=== PATIENT | male | born 1955 | race Asian ===

== ENCOUNTER 2016-05-29 14:53 | Observation (INO) | payer OTHER ==
[2016-05-29 14:57] VITALS: BMI 33.6
--- NOTE | 2016-05-29 15:03 | PDOC ---
Rapid Medical Evaluation Chief Complaint: Chest Pain Time Seen by Provider: 05/29/16 15:02 Medical Evaluation: Allergies Allergy/AdvReac Type Severity Reaction Status Date / Time No Known Allergies Allergy Verified 05/29/16 14:57 Vital Signs Temp Pulse Resp BP Pulse Ox 98.2 F 98 H 18 153/94 97 05/29/16 14:54 05/29/16 14:54 05/29/16 14:54 05/29/16 14:54 05/29/16 14:54 05/29/16 15:02 60 yo M pmhx: hyperlipidemia, HTN, DM, copd c/o left sided Cp since 1100hr today. Increased pain exacerbated on inspiration without any alleviating factors. Pt was about to have lunch when pain started.
[2016-05-29 15:23] LABS: BASOPHIL 1.1 % (0-2.0); EOSINOPHIL 4.7 % (0-4.5); MCH 28.9 pg (25.7-33.7); MCHC 33.3 g/dl (32.0-35.9); MEAN CELL VOLUME 86.6 fl (80-96); MEAN PLT VOLUME 6.8 fl (7.5-11.1); NEUTROPHILS 64.2 % (42.8-82.8); PLATELET COUNT 235 K/MM3 (134-434); RDW 13.9 % (11.9-15.9); WHITE BLOOD COUNT 9.3 K/mm3 (4.0-10.0)
[2016-05-29 15:50] LABS: ALBUMIN 3.9 g/dl (3.4-5.0); ANION GAP 9 (8-16); BILIRUBIN,TOTAL 0.4 mg/dL (0.2-1.0); CALCIUM 9.3 mg/dL (8.5-10.1); CO2 30 mmol/L (21-32); CREATININE 0.9 mg/dL (0.7-1.3); GLUCOSE,RANDOM 175 mg/dL (74-106); SGOT/AST 22 U/L (15-37); SGPT/ALT 45 U/L (12-78); TOT PROT 7.2 g/dl (6.4-8.2)
[2016-05-29 15:51] LABS: ALK PHOS 68 U/L (45-117); TROPONIN I < 0.02 ng/ml (0.00-0.05)
--- NOTE | 2016-05-29 15:55 | PDOC ---
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 The patient states he was sitting down eating lunch when the pain started. The pain is localized to the left chest and does not radiate. The pain is sharp and is worse with deep inspiration. The patient states that he recently saw Dr. Márquez for increasing SOB and was started on albuterol. The patient has never had pain like this before. He denies any associated SOB or palpitations with his chest pain. The patient denies any cough or runny nose. He denies abdominal pain, nausea, vomiting, diarrhea. The patient denies recent illness, fevers, or chills. The patient denies sick contacts or recent travels. (Angeli Morel) Past History <Angeli Morel - Last Filed: 05/29/16 16:29> - Past Medical History Cancer: Yes (Prostate CA.) COPD: Yes (?) Diabetes: Yes (NIDDM) HTN: Yes Hypercholesterolemia: Yes - Surgical History Abdominal Surgery: No Appendectomy: No Cardiac Surgery: No - Immunization History Immunization Up to Date: Yes - Psycho/Social/Smoking Cessation Hx Anxiety: No Suicidal Ideation: No Smoking Status: No Smoking History: Former smoker Have you smoked in the past 12 months: No Number of Cigarettes Smoked Daily: 0 If you are a former smoker, when did you quit?: 40 Information on smoking cessation initiated: No Hx Alcohol Use: No Drug/Substance Use Hx: No Substance Use Type: None <Tara Weller - Last Filed: 05/29/16 17:49> - Past Medical History Allergies/Adverse Reactions: Allergies Allergy/AdvReac Type Severity Reaction Status Date / Time No Known Allergies Allergy Verified 05/29/16 16:07 Home Medications: Ambulatory Orders Albuterol Sulfate 0.5% [Ventolin 0.5% -] 1 neb IH PRN PRN 03/05/16 Albuterol Sulfate [Proair Respiclick] 90 mcg IH PRN PRN 03/05/16 Atorvastatin Ca [Lipitor] 20 mg PO HS 03/05/16 Beclomethasone Dipropionate [Qvar] 8.7 gm IH DAILY 03/05/16 Cholecalciferol (Vitamin D3) [Vitamin D3] 1,000 unit PO DAILY 03/05/16 Glipizide Xl [Glucotrol Xl -] 5 mg PO DAILY 03/05/16 Losartan/Hydrochlorothiazide [Losartan-Hctz 100-25 mg Tab] 1 each PO DAILY 03/05 Metformin HCl [Metformin HCl ER] 1,000 mg PO DAILY 03/05/16 Multivitamin [Poly-Vitamin] 1 each PO DAILY 03/05/16 [place]-3S/Dha/Epa/Fish Oil [Fish Oil [place]-3 Softgel] 1 each PO DAILY 03/05/16 Sildenafil Citrate [Sildenafil] 20 mg PO DAILY 03/05/16 Tamsulosin HCl [Flomax] 0.8 mg PO DAILY 03/05/16 Vitamin B Complex [B Complex] 1 each PO DAILY 03/05/16 Review of Systems - Review of Systems Able to Perform ROS?: Yes <Angeli Morel - Last Filed: 05/29/16 16:29> <Tara Weller - Last Filed: 05/29/16 17:49> - Review of Systems Comments:: 05/29/16 16:29 GENERAL/CONSTITUTIONAL: No: fever, chills, weakness, loss of appetite. HEAD, EYES, EARS, NOSE AND THROAT: No: change in vision, ear pain, discharge, sore throat, throat swelling. CARDIOVASCULAR: +Chest pain. No: lightheadedness, palpitations, syncope RESPIRATORY: No: cough, shortness of breath, wheezing, hemoptysis, stridor. GASTROINTESTINAL: No: nausea, vomiting, abdominal cramping, diarrhea, rectal bleeding, constipation. GENITOURINARY: No: dysuria, hematuria, frequency, urgency, flank pain. MUSCULOSKELETAL: No: back pain, neck pain, joint pain, muscle swelling or pain SKIN AND BREASTS: No: lesions, pallor, rash or easy bruising. NEUROLOGIC: No: headache, vertigo, paresthesias, weakness ENDOCRINE: No: unexplained weight gain or loss HEMATOLOGIC/LYMPHATIC: No: anemia, easy bleeding, swelling nodes (Angeli Morel) *Physical Exam <Angeli Morel - Last Filed: 05/29/16 16:29> <Tara Weller - Last Filed: 05/29/16 17:49> - Vital Signs Last Vital Signs Temp Pulse Resp BP Pulse Ox 98.2 F 98 H 18 153/94 97 05/29/16 14:54 05/29/16 14:54 05/29/16 14:54 05/29/16 14:54 05/29/16 14:54 - Physical Exam Comments: 05/29/16 16:30 GENERAL: The patient is in no acute distress. HEAD: Normal with no signs of trauma. EYES: PERRLA, EOMI, sclera anicteric, conjunctiva clear. ENT: Ears normal, nares patent, oropharynx clear without exudates. Moist mucous membranes. NECK: Normal range of motion, supple without lymphadenopathy, JVD, or masses. LUNGS: Breath sounds equal, clear to auscultation bilaterally. No wheezes, and no crackles. HEART: +Reproducible chest wall tenderness between the 5th and 6th left ribs. Regular rate and rhythm, normal S1 and S2 without murmur, rub or gallop. ABDOMEN: Soft, nontender, normoactive bowel sounds. No guarding, no rebound. EXTREMITIES: Normal range of motion, no edema. No clubbing or cyanosis. No erythema, or tenderness. NEUROLOGICAL: Cranial nerves II through XII grossly intact. Normal speech. No focal neurological deficits. MUSCULOSKELETAL: Back non-tender to palpation, no CVA tenderness SKIN: Warm, Dry, normal turgor, no rashes or lesions noted. (Angeli Morel) Heart Score/ECG Review - History History: Moderately suspicious - Electrocardiogram EKG: Normal - Age Age: >/= 65 - Risk Factors Risk Factors Heart Score: Yes Hx Hypercholesterolemia, Yes Hx Hypertension, Yes Hx Diabetes Based on the list above the patient has:: >/=3 risk factors or Hx atherosclerotic disease - Troponin Troponin: </= normal limit - Score Heart Score - Total: 5 #1 ECG reviewed & interpreted by me at: 17:48 <Tara Weller - Last Filed: 05/29/16 17:49> #1 05/29/16 17:48 Twelve-lead EKG was performed and reviewed by me. There is normal sinus rhythm with a normal rate of 87 bpm. The axis is normal. The intervals are normal - pr: 170ms, QRS:94ms, QTc:435ms. There are no ST elevations or depressions. T wave inversion III (Tara Weller) ED Treatment Course - LABORATORY CBC & Chemistry Diagram: 05/29/16 13:10 05/29/16 13:10 <Angeli Morel - Last Filed: 05/29/16 16:29> - LABORATORY CBC & Chemistry Diagram: 05/29/16 13:10 05/29/16 13:10 <Tara Weller - Last Filed: 05/29/16 17:49> - ADDITIONAL ORDERS Additional order review: Laboratory Results 05/29/16 05/29/16 05/29/16 16:37 13:10 13:10 D-Dimer < 200 Sodium Potassium Chloride Carbon Dioxide Anion Gap BUN Creatinine Creat Clearance w eGFR Random Glucose Calcium Total Bilirubin AST ALT Alkaline Phosphatase Creatine Kinase 266 Creatine Kinase Index 1.6 CK-MB (CK-2) 4.321 H CK-MB (CK-2) Rel Index Cancelled Troponin I < 0.02 Total Protein Albumin 05/29/16 13:10 D-Dimer Sodium 141 Potassium 3.8 Chloride 102 Carbon Dioxide 30 Anion Gap 9 BUN 19 H Creatinine 0.9 Creat Clearance w eGFR > 60 Random Glucose 175 H D Calcium 9.3 Total Bilirubin 0.4 AST 22 ALT 45 Alkaline Phosphatase 68 Creatine Kinase Creatine Kinase Index CK-MB (CK-2) CK-MB (CK-2) Rel Index Troponin I Total Protein 7.2 Albumin 3.9 05/29/16 13:10 RBC 5.18 MCV 86.6 MCHC 33.3 RDW 13.9 MPV 6.8 L Neutrophils % 64.2 Lymphocytes % 21.8 Monocytes % 8.2 Eosinophils % 4.7 H Basophils % 1.1 - Medications Given in the ED: ED Medications Discontinued Medications Generic Name Dose Route Start Last Admin Trade Name Freq PRN Reason Stop Dose Admin Morphine Sulfate 4 mg 05/29/16 16:53 05/29/16 17:14 Morphine Injection - IVPUSH 05/29/16 16:54 4 mg ONCE ONE Administration Medical Decision Making <Angeli Morel - Last Filed: 05/29/16 16:29> <Tara Weller - Last Filed: 05/29/16 17:49> - Medical Decision Making 05/29/16 15:54 A portion of this note was documented by scribe services under my direction. I have reviewed the details of the note, within reason, and agree with the documentation with the following case summary and management plan written by me. Nursing documentation reviewed and incorporated into medical decision making 05/29/16 17:33 This is a 60-year-old male with a history of diabetes, hypertension, hyperlipidemia who presents emergency department with a complaint of left-sided chest pain. Patient states his symptoms began today, described as sharp, no radiation to the arms or back. No associated diaphoresis. Patient states his pain worsens with any movement or deep breath. Patient denies trauma to the chest wall, denies heavy lifting. Denies recent cold, flu, cough. No recent travel, patient does have right lower extremity horses at night, but denies lower extremity edema. Differential includes cardiac ischemia, pe, asthma exacerbation, pneumonia, pneumothorax, pleural effusion, costochondritis, pericarditis, GERD. 05/29/16 17:42 Laboratory Tests 05/29/16 05/29/16 05/29/16 13:10 13:10 13:10 WBC 9.3 D Hgb 15.0 Hct 44.9 Plt Count 235 D Neutrophils % 64.2 Lymphocytes % 21.8 D-Dimer BUN 19 H Creatinine 0.9 CK-MB (CK-2) 4.321 H Troponin I < 0.02 05/29/16 16:37 WBC Hgb Hct Plt Count Neutrophils % Lymphocytes % D-Dimer < 200 BUN Creatinine CK-MB (CK-2) Troponin I Chest x-ray: Cardiomegaly, no acute infiltrate. Given patient's risk factors Will place on observation to the hospitalist service. Clinical impression: Chest pain (Tara Weller) *DC/Admit/Observation/Transfer <Angeli Morel - Last Filed: 05/29/16 16:29> - Discharge Dispostion Admit: Yes <Tara Weller - Last Filed: 05/29/16 17:49> Diagnosis at time of Disposition: Chest pain Qualifiers: Chest pain type: unspecified Qualified Code(s): R07.9 - Chest pain, unspecified - Discharge Dispostion Condition at time of disposition: Stable Decision to Admit order Date/Time: Decision to Admit Order Category Date Time Status Decision to Admit to Hospital Routine Admission 05/29/16 17:43 Active - Referrals Referrals: Sergio Gorman [Primary Care Provider] - - Attestations Scribe Attestion: 05/29/16 16:30 Documentation prepared by Angeli Morel, acting as medical cost consultant for Tara Weller MD. (Angeli Morel)
[2016-05-29] MEDS ORDERED: morphine CARPU-JECT 4 MG/1 ML DISP.SYRIN IVPUSH ONE (16:53)
[2016-05-29] MEDS ORDERED: morphine CARPU-JECT 4 MG/1 ML DISP.SYRIN ONE (17:13)
[2016-05-29] MEDS ORDERED: ALBUTEROL SO4 0.5 % INH SOLN 2.5 MG/0.5 ML VIAL.NEB. NEB PRN ×3 (18:08→18:43)
--- NOTE | 2016-05-29 18:11 | HP ---
CHIEF COMPLAINT: Chest pain PCP: Dr. Gorman [phone] HISTORY OF PRESENT ILLNESS: 60 yr old man with asthma, HTN, HLD, NIDDM, presents to ED with left lower chest pain, sharp in character, intermittent, positional, worse with inspiration breathing, nonradiating since 11am this morning. He came to work as usual, when he went to the [employer] he felt left sided chest discomfort that continued intermittently until it reached 8/10. Pain is improved when he leans forward. 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 Also has been using advil (2 tabs x4) over two days for headache. Denies heavy lifting,trauma, previous episodes of this type of chest pain. ER course was notable for: (1) trop I x1 negative (2) chest xray - no active pulmonary disease (3) EKG with NSR, no acute ischemic changes Recent Travel: [place] PAST MEDICAL HISTORY: HTN NIDDM HLD Asthma enlarged prostate, dx with Prostate Ca last year, Jesi score 2 PAST SURGICAL HISTORY: Social History: Smoking:former, quit 20-25 years ago, smoked approx 1pk for several months Alcohol: socially Drugs: denies Family History: father age 84 had prostate cancer, mother age 70, several DC' s prior to age 50 and had breast cancer ( secondary to MVA). Allergies No Known Allergies Allergy (Verified 05/29/16 16:07) HOME MEDICATIONS: Home Medications Medication Instructions Recorded Albuterol Sulfate 0.5% [Ventolin 1 neb IH PRN PRN 03/05/16 0.5% -] Albuterol Sulfate [Proair 90 mcg IH PRN PRN 03/05/16 Respiclick] Atorvastatin Ca [Lipitor] 20 mg PO HS 03/05/16 Beclomethasone Dipropionate [Qvar] 8.7 gm IH DAILY 03/05/16 Cholecalciferol (Vitamin D3) 1,000 unit PO DAILY 03/05/16 [Vitamin D3] Glipizide Xl [Glucotrol Xl -] 5 mg PO DAILY 03/05/16 Losartan/Hydrochlorothiazide 1 each PO DAILY 03/05/16 [Losartan-Hctz 100-25 mg Tab] Metformin HCl [Metformin HCl ER] 1,000 mg PO DAILY 03/05/16 Multivitamin [Poly-Vitamin] 1 each PO DAILY 03/05/16 [place]-3S/Dha/Epa/Fish Oil [Fish 1 each PO DAILY 03/05/16 Oil [place]-3 Softgel] Sildenafil Citrate [Sildenafil] 20 mg PO DAILY 03/05/16 Tamsulosin HCl [Flomax] 0.8 mg PO DAILY 03/05/16 Vitamin B Complex [B Complex] 1 each PO DAILY 03/05/16 REVIEW OF SYSTEMS CONSTITUTIONAL: Absent: fever, chills, diaphoresis, generalized weakness, malaise, loss of appetite, weight change HEENT: Absent: rhinorrhea, nasal congestion, throat pain, throat swelling, difficulty swallowing, mouth swelling, ear pain, eye pain, visual changes CARDIOVASCULAR: Present: chest pain Absent: syncope, palpitations, irregular heart rate, lightheadedness, peripheral edema RESPIRATORY: Absent: cough, shortness of breath, dyspnea with exertion, orthopnea, wheezing, stridor, hemoptysis GASTROINTESTINAL: Absent: abdominal pain, abdominal distension, nausea, vomiting, diarrhea, constipation, melena, hematochezia GENITOURINARY: Absent: dysuria, frequency, urgency, hesitancy, hematuria, flank pain, genital pain MUSCULOSKELETAL: Absent: myalgia, arthralgia, joint swelling, back pain, neck pain SKIN: Absent: rash, itching, pallor HEMATOLOGIC/IMMUNOLOGIC: Absent: easy bleeding, easy bruising, lymphadenopathy, frequent infections ENDOCRINE: Absent: unexplained weight gain, unexplained weight loss, heat intolerance, cold intolerance NEUROLOGIC: Absent: headache, focal weakness or paresthesias, dizziness, unsteady gait, seizure, mental status changes, bladder or bowel incontinence PSYCHIATRIC: Absent: anxiety, depression, suicidal or homicidal ideation, hallucinations. PHYSICAL EXAMINATION GENERAL: Awake, alert, and fully oriented, in no acute distress. HEAD: Normal with no signs of trauma. EYES: Pupils equal, round and reactive to light, extraocular movements intact, sclera anicteric, conjunctiva clear. No lid lag. EARS, NOSE, THROAT: Ears normal, nares patent, oropharynx clear without exudates. Moist mucous membranes. no pnd, no sinus tenderness. NECK: Normal range of motion, supple without lymphadenopathy, JVD, or masses. LUNGS: Breath sounds equal, clear to auscultation bilaterally. No wheezes, and no crackles. No accessory muscle use. HEART: Regular rate and rhythm, normal S1 and S2 without murmur, rub or gallop. CHEST: no erythema, no mass, skin intact, ttp chest wall tenderness between the 5th and 6th left ribs. ABDOMEN: Soft, nontender, not distended, normoactive bowel sounds, no guarding, no rebound, no masses. MUSCULOSKELETAL: freely moving all joints. UPPER EXTREMITIES: 2+ pulses, warm, well-perfused. No cyanosis. No clubbing. No peripheral edema. LOWER EXTREMITIES: warm, well-perfused. No calf tenderness. No peripheral edema. NEUROLOGICAL: Normal speech. PSYCHIATRIC: Cooperative. Good eye contact. Appropriate mood and affect. SKIN: Warm, dry, normal turgor, no rashes or lesions noted. ASSESSMENT/PLAN: 60 yr old man with asthma, HTN, NIDDM, HLD, hx of prostate cancer, presents with reproducible chest pain for one day. - heart score 5 - HA 1 #Reproducible chest pain - r/o DC due to risk factors: Trops x3 - given reproducibility, more suspicious for tietze syndrome - r/o pericardial effusion given relief when leaning forward; echo in the AM - pain control with naprosyn 350 bid #Asthma - duonebs prn - ventolin #NIDDM - anticipate short stay, continue oral hypoglycemics - metformin - glipizide #HTN - hyzaar #CAD - fish oil, lipitor #DVT- anticipate short stay, no oral AC, encourage ambulation #Diet- low fat low sodium Visit type - Emergency Visit Emergency Visit: Yes ED Registration Date: 05/29/16 Care time: The patient presented to the Emergency Department on the above date and was hospitalized for further evaluation of their emergent condition. - New Patient This patient is new to me today: Yes Date on this admission: 05/29/16 - Critical Care Critical Care patient: No
[2016-05-29] MEDS ORDERED: KETOROLAC TROMETHAMINE 30 MG/1 ML VIAL IVPUSH ONE (18:37)
[2016-05-29] MEDS ORDERED: ALBUTEROL SO4 2.5/IPRATROPIUM 0.5 INH SOL 3 ML VIAL.NEB. NEB ONE ×2 (18:37→20:08)
[2016-05-29] MEDS ORDERED: KETOROLAC TROMETHAMINE 30 MG/1 ML VIAL ONE (18:40)
--- NOTE | 2016-05-29 18:50 | PN ---
Teaching Attending Note Name of Resident: Sudhakar Jaramillo ATTENDING PHYSICIAN STATEMENT I saw and evaluated the patient. I reviewed the resident's note and discussed the case with the resident. I agree with the resident's findings and plan as documented. SUBJECTIVE: OBJECTIVE: Vital Signs Period Temp Pulse Resp BP Sys/Drake Pulse Ox Last 24 Hr 98.2 F 98 18 153/94 97 ASSESSMENT AND PLAN:
[2016-05-29] MEDS ORDERED: ALBUTEROL SO4 6.7 GM HFA INHALER IH PRN (19:51)
[2016-05-29] MEDS: NAPROXEN 375 MG TABLET (FP) PO SCH ×2 (20:04→23:03)
[2016-05-29] MEDS ORDERED: NAPROXEN 500 MG TABLET (FP) ONE (20:08)
[2016-05-29] MEDS: ATORVASTATIN CA 20 MG TABLET (FP) PO SCH ×2 (20:35→21:25)
[2016-05-29] MEDS ORDERED: NAPROXEN 375 MG TABLET (FP) PO SCH (22:00)
[2016-05-30] MEDS: glipiZIDE-XL 5 MG TAB.ER.24 PO SCH ×2 (06:33→08:25)
--- NOTE | 2016-05-30 08:34 | PN ---
Teaching Attending Note Name of Resident: Sudhakar Jaramillo ATTENDING PHYSICIAN STATEMENT I saw and evaluated the patient. I reviewed the resident's note and discussed the case with the resident. I agree with the resident's findings and plan as documented. Vital Signs Temperature 97.3 F L 05/30/16 06:00 Pulse Rate 63 05/30/16 06:00 Respiratory Rate 18 05/30/16 06:00 Blood Pressure 138/80 05/30/16 06:00 O2 Sat by Pulse Oximetry (%) 99 05/30/16 06:00 Medications Generic Name Dose Route Start Last Admin Trade Name Freq PRN Reason Stop Dose Admin Albuterol Sulfate 2 puff 05/29/16 19:51 Ventolin Hfa Inhaler - IH Q6H PRN ASTHMA Albuterol Sulfate 1 amp 05/29/16 18:43 Ventolin 0.5% - NEB Q4H PRN ASTHMA Atorvastatin Calcium 20 mg 05/29/16 22:00 05/29/16 21:25 Lipitor - PO Not Given HS [facility] Cholecalciferol 1,000 unit 05/30/16 10:00 Vitamin D3 - PO DAILY SHAE Glipizide 5 mg 05/30/16 07:00 05/30/16 08:25 Glucotrol Xl - PO 5 mg DAILY@0700 SHAE Administration HCTZ/Losartan Potassium 2 tab 05/30/16 10:00 Hyzaar - PO DAILY SHAE Metformin HCl 1,000 mg 05/30/16 07:00 05/30/16 08:25 Glucophage Xr - PO 1,000 mg DAILY@0700 SHAE Administration Multivitamins 1 each 05/30/16 10:00 Total B With C - PO DAILY [facility] Multivitamins/Minerals/Vitamin C 1 tab 05/30/16 10:00 Tab-A-Vit - PO DAILY SHAE Naproxen 375 mg 05/29/16 19:00 05/29/16 23:03 Naprosyn - PO 375 mg BID SHAE Administration Non-Formulary Medication 8.7 gm 05/30/16 10:00 Beclomethasone Dipropionate [Qvar] IH DAILY [facility] Non-Formulary Medication 1 each 05/30/16 10:00 [place]-3s/Dha/Epa/Fish Oil [Fish Oil [place]-3 Softgel] PO DAILY SHAE Non-Formulary Medication 20 mg 05/30/16 10:00 Sildenafil Citrate [Sildenafil] PO DAILY SHAE Discontinued Medications Generic Name Dose Route Start Last Admin Trade Name Freq PRN Reason Stop Dose Admin Albuterol Sulfate amp 05/29/16 18:08 Ventolin 0.5% - NEB PRN PRN ASTHMA Albuterol Sulfate 1 amp 05/29/16 18:42 Ventolin 0.5% - NEB PRN PRN ASTHMA Albuterol/Ipratropium 1 amp 05/29/16 18:37 05/29/16 20:04 Duoneb - NEB 05/29/16 18:38 1 amp NOW ONE Administration Albuterol/Ipratropium Confirm 05/29/16 20:08 Duoneb - Administered 05/29/16 20:09 Dose 1 amp NEB .STK-MED ONE Ketorolac Tromethamine 30 mg 05/29/16 18:37 05/29/16 18:41 Toradol Injection - IVPUSH 05/29/16 18:38 30 mg ONCE ONE Administration Ketorolac Tromethamine Confirm 05/29/16 18:40 Toradol Injection - Administered 05/29/16 18:41 Dose 30 mg .ROUTE .STK-MED ONE Morphine Sulfate 4 mg 05/29/16 16:53 05/29/16 17:14 Morphine Injection - IVPUSH 05/29/16 16:54 4 mg ONCE ONE Administration Morphine Sulfate Confirm 05/29/16 17:13 Morphine Injection - Administered 05/29/16 17:14 Dose 4 mg .ROUTE .STK-MED ONE Naproxen 375 mg 05/29/16 22:00 Naprosyn - PO BID [facility] Naproxen Confirm 05/29/16 20:08 Naprosyn - Administered 05/29/16 20:09 Dose 500 mg .ROUTE .STK-MED ONE Lab Results WBC 9.3 K/mm3 (4.0-10.0) D 05/29/16 13:10 RBC 5.18 M/mm3 (4.00-5.60) 05/29/16 13:10 Hgb 15.0 GM/dL (11.7-16.9) 05/29/16 13:10 Hct 44.9 % (35.4-49) 05/29/16 13:10 MCV 86.6 fl (80-96) 05/29/16 13:10 MCHC 33.3 g/dl (32.0-35.9) 05/29/16 13:10 RDW 13.9 % (11.9-15.9) 05/29/16 13:10 Plt Count 235 K/MM3 (134-434) D 05/29/16 13:10 MPV 6.8 fl (7.5-11.1) L 05/29/16 13:10 Neutrophils % 64.2 % (42.8-82.8) 05/29/16 13:10 Lymphocytes % 21.8 % (8-40) 05/29/16 13:10 Monocytes % 8.2 % (3.8-10.2) 05/29/16 13:10 Eosinophils % 4.7 % (0-4.5) H 05/29/16 13:10 Basophils % 1.1 % (0-2.0) 05/29/16 13:10 ESR 3 mm/hr (0-20) 05/29/16 21:10 D-Dimer < 200 ng/ml (<200-235) 05/29/16 16:37 Sodium 141 mmol/L (136-145) 05/29/16 13:10 Potassium 3.8 mmol/L (3.5-5.1) 05/29/16 13:10 Chloride 102 mmol/L (98-107) 05/29/16 13:10 Carbon Dioxide 30 mmol/L (21-32) 05/29/16 13:10 Anion Gap 9 (8-16) 05/29/16 13:10 BUN 19 mg/dL (7-18) H 05/29/16 13:10 Creatinine 0.9 mg/dL (0.7-1.3) 05/29/16 13:10 Creat Clearance w eGFR > 60 (>60) 05/29/16 13:10 POC Glucometer 81 UNITS (()) 05/30/16 06:20 Random Glucose 175 mg/dL (74-106) H D 05/29/16 13:10 Calcium 9.3 mg/dL (8.5-10.1) 05/29/16 13:10 Total Bilirubin 0.4 mg/dL (0.2-1.0) 05/29/16 13:10 AST 22 U/L (15-37) 05/29/16 13:10 ALT 45 U/L (12-78) 05/29/16 13:10 Alkaline Phosphatase 68 U/L (45-117) 05/29/16 13:10 Creatine Kinase 266 IU/L (39-308) 05/29/16 13:10 Creatine Kinase Index 1.6 % (0.0-5.0) 05/29/16 13:10 CK-MB (CK-2) 4.321 ng/ml (0.5-3.6) H 05/29/16 13:10 CK-MB (CK-2) Rel Index Cancelled 05/29/16 13:10 Troponin I < 0.02 ng/ml (0.00-0.05) 05/30/16 05:35 Total Protein 7.2 g/dl (6.4-8.2) 05/29/16 13:10 Albumin 3.9 g/dl (3.4-5.0) 05/29/16 13:10 Laboratory Tests 05/29/16 05/29/16 05/30/16 13:10 21:10 05:35 Troponin I < 0.02 < 0.02 < 0.02 Patient has no further chest pain, no palpitations, no nausea or vomiting. ASSESSMENT AND PLAN: 60 yr old man with asthma, HTN, NIDDM, HLD, hx of prostate cancer, presents with reproducible chest pain for one day. 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 Patient needs an stress test. #Asthma; duonebs prn, ventolin #NIDDM -on metformin and glipizide continue #HTN ;continue hyzaar #HLD on fish oil, lipitor continue #DVT- early ambulation on Observation #Diet- low fat low sodium
--- NOTE | 2016-05-30 09:32 | DS ---
Physical Exam: SUBJECTIVE: Patient seen and examined. Chest pain resolved, improved with naprosyn, no repeat episodes. slept well, ambulating and eating without difficulty. denies sob. OBJECTIVE: Vital Signs Period Temp Pulse Resp BP Sys/Drake Pulse Ox Last 24 Hr 97.3 F-98.1 F 63-98 18-23 138-155/78-96 96-99 PHYSICAL EXAM GENERAL: The patient is awake, alert, and fully oriented, in no acute distress. HEAD: Normal with no signs of trauma. EYES: PERRL, extraocular movements intact, sclera anicteric, conjunctiva clear. ENT: Ears normal, nares patent, oropharynx clear without exudates, moist mucous membranes. NECK: Trachea midline, full range of motion, supple. LUNGS: Breath sounds equal, clear to auscultation bilaterally, no wheezes, no crackles, no accessory muscle use. HEART: Regular rate and rhythm, S1, S2 without murmur, rub or gallop. no chest tenderness. ABDOMEN: Soft, nontender, nondistended, normoactive bowel sounds, no guarding, no rebound. EXTREMITIES: 2+ pulses, warm, well-perfused, no edema. NEUROLOGICAL: Cranial nerves II through XII grossly intact. Normal speech, gait not observed. PSYCH: Normal mood, normal affect. SKIN: Warm, dry, normal turgor, no rashes or lesions noted. LABS Laboratory Results - last 24 hr 05/29/16 05/29/16 05/30/16 21:10 21:10 05:35 ESR 3 POC Glucometer Troponin I < 0.02 < 0.02 05/30/16 06:20 ESR POC Glucometer 81 Troponin I Laboratory Tests 05/29/16 05/29/16 05/29/16 13:10 16:37 21:10 ESR D-Dimer < 200 Troponin I < 0.02 < 0.02 05/29/16 05/30/16 21:10 05:35 ESR 3 D-Dimer Troponin I < 0.02 HOSPITAL COURSE: Date of Admission:05/29/16 - Date of Discharge: 05/30/16 60 yr old man with asthma, HTN, NIDDM, HLD, hx of prostate cancer, presents with reproducible chest pain for one day. With heart score of 5 and HA score of 1 he was placed on telemetry for continuous cardiac monitoring. His echo showed normal left and right ventricular function with moederate mitral annlar calcifications with mild to moderate aortic valve thickening. EKG on admission showed NSR with possible left atrial enlargment without significant changes from a previous EKG from February 2106. Repeat EKG showed NSR with no significant change from previous. 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 Minutes to complete discharge: 40 <Sudhakar Jaramillo - Last Filed: 05/30/16 21:05> Physical Exam: SUBJECTIVE: Patient seen and examined OBJECTIVE: PHYSICAL EXAM GENERAL: The patient is awake, alert, and fully oriented, in no acute distress. HEAD: Normal with no signs of trauma. EYES: PERRL, extraocular movements intact, sclera anicteric, conjunctiva clear. ENT: Ears normal, nares patent, oropharynx clear without exudates, moist mucous membranes. NECK: Trachea midline, full range of motion, supple. LUNGS: Breath sounds equal, clear to auscultation bilaterally, no wheezes, no crackles, no accessory muscle use. HEART: Regular rate and rhythm, S1, S2 without murmur, rub or gallop. ABDOMEN: Soft, nontender, nondistended, normoactive bowel sounds, no guarding, no rebound, no hepatosplenomegaly, no masses. EXTREMITIES: 2+ pulses, warm, well-perfused, no edema. NEUROLOGICAL: Cranial nerves II through XII grossly intact. Normal speech, gait not observed. PSYCH: Normal mood, normal affect. SKIN: Warm, dry, normal turgor, no rashes or lesions noted. LABS HOSPITAL COURSE: Date of Admission:05/29/16 Date of Discharge: 06/03/16 Patient was called and left a message to follow up with for this Friday to schedule stress test as an outpatient. 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) Current Active Problems Chest pain (Acute) - Home Medications Comprehensive Discharge Medication List: Ambulatory Orders Albuterol Sulfate 0.5% [Ventolin 0.5% -] 1 neb IH PRN PRN 03/05/16 Albuterol Sulfate [Proair Respiclick] 90 mcg IH PRN PRN 03/05/16 Atorvastatin Ca [Lipitor] 20 mg PO DAILY 03/05/16 Beclomethasone Dipropionate [Qvar] 8.7 gm IH DAILY 03/05/16 Cholecalciferol (Vitamin D3) [Vitamin D3] 1,000 unit PO DAILY 03/05/16 Glipizide Xl [Glucotrol Xl -] 5 mg PO DAILY 03/05/16 Losartan/Hydrochlorothiazide [Losartan-Hctz 100-25 mg Tab] 1 each PO DAILY 03/05 Metformin HCl [Metformin HCl ER] 1,000 mg PO DAILY 03/05/16 Multivitamin [Poly-Vitamin] 1 each PO DAILY 03/05/16 [place]-3S/Dha/Epa/Fish Oil [Fish Oil [place]-3 Softgel] 1 each PO DAILY 03/05/16 Sildenafil Citrate [Sildenafil] 20 mg PO DAILY 03/05/16 Tamsulosin HCl [Flomax] 0.8 mg PO DAILY 03/05/16 Vitamin B Complex [B Complex] 1 each PO DAILY 03/05/16 Mirabegron [Myrbetriq] 50 mg PO HS 05/30/16 <Sudhakar Jaramillo - Last Filed: 05/30/16 21:05> - Home Medications Comprehensive Discharge Medication List: Ambulatory Orders Albuterol Sulfate 0.5% [Ventolin 0.5% Nebulizing Soln. -] 1 neb IH PRN PRN 03/05 Albuterol Sulfate [Proair Respiclick] 90 mcg IH PRN PRN 03/05/16 Atorvastatin Ca [Lipitor] 20 mg PO DAILY 03/05/16 Beclomethasone Dipropionate [Qvar] 8.7 gm IH DAILY 03/05/16 Cholecalciferol (Vitamin D3) [Vitamin D3] 1,000 unit PO DAILY 03/05/16 Glipizide Xl [Glucotrol Xl -] 5 mg PO DAILY 03/05/16 Losartan/Hydrochlorothiazide [Losartan-Hctz 100-25 mg Tab] 1 each PO DAILY 03/05 Metformin HCl [Metformin HCl ER] 1,000 mg PO DAILY 03/05/16 Multivitamin [Poly-Vitamin] 1 each PO DAILY 03/05/16 [place]-3S/Dha/Epa/Fish Oil [Fish Oil [place]-3 Softgel] 1 each PO DAILY 03/05/16 Sildenafil Citrate [Sildenafil] 20 mg PO DAILY 03/05/16 Tamsulosin HCl [Flomax] 0.8 mg PO DAILY 03/05/16 Vitamin B Complex [B Complex] 1 each PO DAILY 03/05/16 Mirabegron [Myrbetriq] 50 mg PO HS 05/30/16 Naproxen [Naprosyn -] 375 mg PO BID #6 tablet 05/30/16 <Genevieve Das - Last Filed: 06/03/16 07:27> Condition: Stable - Instructions Diet, Activity, Other Instructions: Resume your home medications and return to your usual activities as tolerated. Take Naprosyn 1 tablet twice daily with plenty of water if you need it for pain. Follow-up with Dr. Polk and your primary care physician in one week for further cardiac evaluation and review of your hospitalization. If your chest pain worsens, your develop difficulty breathing or any new symptoms return to the hospital. Referrals: Sergio Gorman [Primary Care Provider] - Yovany Green MD [Staff Physician] - Disposition: HOME This patient is new to me today: No Emergency Visit: No Critical Care patient: No - Discharge Referral Referred to [facility] No <Sudhakar Jaramillo - Last Filed: 05/30/16 21:05>
[2016-05-30] MEDS: NAPROXEN 375 MG TABLET (FP) PO SCH (09:56)
[2016-05-30] MEDS ORDERED: MULTIVITAMINS (DAILY MVI) TABLET (FP) PO SCH (10:00)
[2016-05-30] MEDS ORDERED: CHOLECALCIFEROL (VITAMIN D3) 1,000 UNIT TABLET (FP) PO SCH (10:00)
[2016-05-30] MEDS ORDERED: SILDENAFIL CITRATE 20 MG TAB PO SCH (10:00)
[2016-05-30] MEDS ORDERED: PATIENT'S OWN MEDICATION (NON-FORMULARY) (Omega-3s/Dha/Epa/Fish Oil [Fish Oil Omega-3 Soft PO SCH (10:00)
[2016-05-30] MEDS ORDERED: VITAMIN B COMPLEX W/C COMBO TABLET (FP) PO SCH (10:00)
[2016-05-30] MEDS ORDERED: LOSARTAN 50MG/HCTZ 12.5MG 1 TAB (FP) PO SCH (10:00)
[2016-05-30] MEDS ORDERED: PATIENT'S OWN MEDICATION (NON-FORMULARY) (Beclomethasone Dipropionate [Qvar] 8.7 GM) IH SCH (10:00)
--- NOTE | 2016-05-30 10:58 | CON.CARD ---
Consult Consult Specialty:: cardiology Reason for Consultation:: cp - History of Present Illness History of Present Illness: 60 yo M pmhx: hyperlipidemia, HTN, DM, copd c/o left sided Cp since 1100hr today. Increased pain exacerbated on inspiration without any alleviating factors. Pt was about to have lunch when pain started. - Alcohol/Substance Use Hx Alcohol Use: No - Smoking History Smoking history: Former smoker Have you smoked in the past 12 months: No Aproximately how many cigarettes per day: 0 If you are a former smoker, when did you quit?: 40 Home Medications - Allergies Allergies/Adverse Reactions: Allergies Allergy/AdvReac Type Severity Reaction Status Date / Time No Known Allergies Allergy Verified 05/29/16 16:07 - Home Medications Home Medications: Ambulatory Orders Albuterol Sulfate 0.5% [Ventolin 0.5% Nebulizing Soln. -] 1 neb IH PRN PRN 03/05 Albuterol Sulfate [Proair Respiclick] 90 mcg IH PRN PRN 03/05/16 Atorvastatin Ca [Lipitor] 20 mg PO DAILY 03/05/16 Beclomethasone Dipropionate [Qvar] 8.7 gm IH DAILY 03/05/16 Cholecalciferol (Vitamin D3) [Vitamin D3] 1,000 unit PO DAILY 03/05/16 Glipizide Xl [Glucotrol Xl -] 5 mg PO DAILY 03/05/16 Losartan/Hydrochlorothiazide [Losartan-Hctz 100-25 mg Tab] 1 each PO DAILY 03/05 Metformin HCl [Metformin HCl ER] 1,000 mg PO DAILY 03/05/16 Multivitamin [Poly-Vitamin] 1 each PO DAILY 03/05/16 [place]-3S/Dha/Epa/Fish Oil [Fish Oil [place]-3 Softgel] 1 each PO DAILY 03/05/16 Sildenafil Citrate [Sildenafil] 20 mg PO DAILY 03/05/16 Tamsulosin HCl [Flomax] 0.8 mg PO DAILY 03/05/16 Vitamin B Complex [B Complex] 1 each PO DAILY 03/05/16 Mirabegron [Myrbetriq] 50 mg PO HS 05/30/16 Naproxen [Naprosyn -] 375 mg PO BID #6 tablet 05/30/16 Vital Signs: Vital Signs Temperature 97.7 F 05/30/16 09:02 Pulse Rate 82 05/30/16 09:02 Respiratory Rate 18 03/02/17 09:02 Blood Pressure 138/85 05/30/16 09:02 O2 Sat by Pulse Oximetry (%) 99 05/30/16 06:00 - Other Data Labs, Other Data: Troponin, BNP 05/29/16 05/30/16 21:10 05:35 Troponin I < 0.02 < 0.02 Troponin, BNP 05/29/16 05/30/16 21:10 05:35 Troponin I < 0.02 < 0.02 Assessment/Plan came to examine patient at 5 45 PM. Patient was already discharged. Patient should have MIBI stress test as the inpatient prior to the discharge. PMD contacted patient via cell phone in this regard.
--- NOTE | 2016-05-30 14:12 | EKG ---
Test Reason : Blood Pressure : / mmHG Vent. Rate : 087 BPM Atrial Rate : 087 BPM P-R Int : 170 ms QRS Dur : 094 ms QT Int : 362 ms P-R-T Axes : 060 022 022 degrees QTc Int : 435 ms NORMAL SINUS RHYTHM POSSIBLE LEFT ATRIAL ENLARGEMENT BORDERLINE ECG WHEN COMPARED WITH ECG OF 05-MAR-2016 21:28, NO SIGNIFICANT CHANGE WAS FOUND Confirmed by IVANIA RANDOLPH MD ([id number]) on 05/30/2016 2:11:32 PM Referred By: Confirmed By:IVANIA RANDOLPH MD
--- NOTE | 2016-05-30 14:14 | EKG ---
Test Reason : Blood Pressure : / mmHG Vent. Rate : 071 BPM Atrial Rate : 071 BPM P-R Int : 176 ms QRS Dur : 098 ms QT Int : 390 ms P-R-T Axes : 067 063 028 degrees QTc Int : 423 ms NORMAL SINUS RHYTHM NORMAL ECG WHEN COMPARED WITH ECG OF 29-MAY-2016 15:04, NO SIGNIFICANT CHANGE WAS FOUND Confirmed by IVANIA RANDOLPH MD ([id number]) on 05/30/2016 2:13:50 PM Referred By: MARGARITO ESCUDERO Confirmed By:IVANIA RANDOLPH MD
[2016-05-30 14:30] VITALS: BP 133/78; PULSE 77; TEMP 98.1
== END 2016-05-30 17:40 | disposition home or self-care (01) ==
LOC: JER 14:53 → JERBED 17:43 → J4S 20:26
PROVIDERS: ADMIT Internal Medicine; ATTEND Internal Medicine
DX: R07.9 Chest pain, unspecified (principal); I10 Essential (primary) hypertension; E78.5 Hyperlipidemia, unspecified; E11.9 Type 2 diabetes mellitus without complications; J45.909 Unspecified asthma, uncomplicated; N40.0 Benign prostatic hyperplasia without lower urinary tract symptoms; Z85.46 Personal history of malignant neoplasm of prostate; Z87.891 Personal history of nicotine dependence; Z79.84 Long term (current) use of oral hypoglycemic drugs
CPT/HCPCS: 36415; 71020-TC; 80053; 82550; 82553; 84484; 85025; 85379; 85651; 93005; 93010; 93306-TC; 99285-25; G0378

== ENCOUNTER 2016-06-19 20:21 | Emergency (ER) | payer OTHER ==
[2016-06-19 20:39] VITALS: BP 147/89; PULSE 89; TEMP 97.6; BMI 29.2
[2016-06-19] MEDS ORDERED: KETOROLAC TROMETHAMINE 30 MG/1 ML VIAL IM ONE (21:08)
[2016-06-19] MEDS ORDERED: KETOROLAC TROMETHAMINE 30 MG/1 ML VIAL ONE (21:49)
--- NOTE | 2016-06-19 22:16 | PDOC ---
History of Present Illness - General Chief Complaint: Injury Stated Complaint: FALL/INJURY/EMPLOYEE Time Seen by Provider: 06/19/16 20:39 History Source: Patient Exam Limitations: No Limitations - History of Present Illness Initial Comments: 06/19/16 22:11 CHIEF COMPLAINT: Fall HISTORY OF PRESENT ILLNESS: This is a 61 year old male with a history of NIDDM, HTN, and prostate ca (not yet treated) who presents after slipping and falling on ice outside of work. He fell onto his left knee and outstretched left hand. He is ambulatory in the ED. REVIEW OF SYSTEMS: GENERAL/CONSTITUTIONAL: No fever or chills. No weakness. No weight change. HEAD, EYES, EARS, NOSE AND THROAT: No change in vision. No ear pain or discharge. No sore throat. CARDIOVASCULAR: No chest pain or palpitations. RESPIRATORY: No cough, wheezing, or shortness of breath. GASTROINTESTINAL: No nausea, vomiting, diarrhea or constipation. GENITOURINARY: No dysuria, frequency, or change in urination. MUSCULOSKELETAL: Left knee and left wrist pain. SKIN: No rash or easy bruising. NEUROLOGIC: No headache, vertigo, loss of consciousness, or loss of sensation. PSYCHIATRIC: No depression or anxiety. ENDOCRINE: No increased thirst. No abnormal weight change. HEMATOLOGIC/LYMPHATIC: No anemia, easy bleeding, or history of blood clots. ALLERGIC/IMMUNOLOGIC: No hives or skin allergy. No latex allergy. PHYSICAL EXAM: GENERAL: The patient is awake, alert, and fully oriented, in no acute distress. HEAD: Normal with no signs of trauma. ENT: Pupils equal, round and reactive to light, extraocular movements intact, sclera anicteric, conjunctiva clear. Neck supple. LUNGS: Clear to auscultation bilaterally. Normal excursion. No respiratory distress or use of accessory muscles. CV: RRR, S1/S2, no MRG. Cap refill < 2 sec. ABDOMEN: Soft, non-distended, non-tender. EXTREMITIES: Abrasion and tenderness at tibial plateau. Able to extend fully and flex to 90 degrees. No ligament laxity. Mild tenderness at distal radius, worse with extension of thumb. Movement and sensation of fingers intact. Radial and ulnar pulses 2+. NEUROLOGICAL: Normal speech, normal gait. CN II-XII grossly intact. PSYCH: Normal mood, normal affect. SKIN: Warm, dry, normal turgor, no rashes or lesions noted. Past History - Past Medical History Allergies/Adverse Reactions: Allergies Allergy/AdvReac Type Severity Reaction Status Date / Time No Known Allergies Allergy Verified 06/19/16 20:37 Home Medications: Ambulatory Orders Albuterol Sulfate 0.5% [Ventolin 0.5% Nebulizing Soln. -] 1 neb IH PRN PRN 03/05 Albuterol Sulfate [Proair Respiclick] 90 mcg IH PRN PRN 03/05/16 Atorvastatin Ca [Lipitor] 20 mg PO DAILY 03/05/16 Beclomethasone Dipropionate [Qvar] 8.7 gm IH DAILY 03/05/16 Cholecalciferol (Vitamin D3) [Vitamin D3] 1,000 unit PO DAILY 03/05/16 Glipizide Xl [Glucotrol Xl -] 5 mg PO DAILY 03/05/16 Losartan/Hydrochlorothiazide [Losartan-Hctz 100-25 mg Tab] 1 each PO DAILY 03/05 Metformin HCl [Metformin HCl ER] 1,000 mg PO DAILY 03/05/16 Multivitamin [Poly-Vitamin] 1 each PO DAILY 03/05/16 [place]-3S/Dha/Epa/Fish Oil [Fish Oil [place]-3 Softgel] 1 each PO DAILY 03/05/16 Sildenafil Citrate [Sildenafil] 20 mg PO DAILY 03/05/16 Tamsulosin HCl [Flomax] 0.8 mg PO DAILY 03/05/16 Vitamin B Complex [B Complex] 1 each PO DAILY 03/05/16 Mirabegron [Myrbetriq] 50 mg PO HS 05/30/16 Naproxen [Naprosyn -] 375 mg PO BID #6 tablet 05/30/16 Naproxen [Naprosyn -] 500 mg PO BID #14 tablet 06/19/16 Cancer: Yes (Prostate CA.) COPD: Yes (?) Diabetes: Yes HTN: Yes Hypercholesterolemia: Yes - Surgical History Abdominal Surgery: No Appendectomy: No Cardiac Surgery: No - Immunization History Immunization Up to Date: Yes - Psycho/Social/Smoking Cessation Hx Anxiety: No Suicidal Ideation: No Smoking Status: No Smoking History: Never smoked Have you smoked in the past 12 months: No Number of Cigarettes Smoked Daily: 0 If you are a former smoker, when did you quit?: 40 Information on smoking cessation initiated: No Hx Alcohol Use: No Drug/Substance Use Hx: No Substance Use Type: None *Physical Exam - Vital Signs Last Vital Signs Temp Pulse Resp BP Pulse Ox 97.6 F 89 20 147/89 98 06/19/16 20:37 06/19/16 20:37 06/19/16 20:37 06/19/16 20:37 06/19/16 20:37 ED Treatment Course - RADIOLOGY Radiology Studies Ordered: Category Date Time Status KNEE 3 POS-LEFT [RAD] Stat Radiology 06/19/16 21:11 Taken WRIST W/HAND-LEFT* [RAD] Stat Radiology 06/19/16 21:11 Taken - Medications Given in the ED: ED Medications Discontinued Medications Generic Name Dose Route Start Last Admin Trade Name Freq PRN Reason Stop Dose Admin Ketorolac Tromethamine 30 mg 06/19/16 21:08 06/19/16 21:51 Toradol Injection - IM 06/19/16 21:09 30 mg ONCE ONE Administration Medical Decision Making - Medical Decision Making 06/19/16 22:26 A/P: 61 year old male with knee pain and wrist pain s/p fall. 1. Toradol 30mg IM for pain 2. Knee and wrist xrays Xray wet reads: no fractures. Patient prefers to be discharged prior to official radiology read. *DC/Admit/Observation/Transfer Diagnosis at time of Disposition: Fall Qualifiers: Encounter type: initial encounter Qualified Code(s): W19.XXXA - Unspecified fall, initial encounter Left wrist sprain Qualifiers: Encounter type: initial encounter Qualified Code(s): S63.502A - Unspecified sprain of left wrist, initial encounter Knee sprain Qualifiers: Encounter type: initial encounter Involved ligament of knee: other ligament Laterality: left Qualified Code(s): S83.8X2A - Sprain of other specified parts of left knee, initial encounter - Discharge Dispostion Disposition: HOME Condition at time of disposition: Stable Admit: No - Prescriptions Prescriptions: Naproxen [Naprosyn -] 500 mg PO BID #14 tablet - Referrals Referrals: Johnny Pate MD [Staff Physician] - - Patient Instructions Printed Discharge Instructions: DI for Wrist Sprain, DI for Knee Sprain Additional Instructions: -Take Naproxen as prescribed for kim -Use the wrist splint and JUAN F wrap as needed for comfort -Apply ice for 15 minutes a time 5 times daily -Follow up with orthopedics if symptoms persist (referral enclosed) -Return here for any concerning symptoms
== END 2016-06-19 22:28 | disposition home or self-care (01) ==
LOC: JERFT 20:21
PROC: 3E0233Z Introduction of Anti-inflammatory into Muscle, Percutaneous Approach (ICD-10-PCS; principal; 2016-06-19)
DX: S63.502A Unspecified sprain of left wrist, initial encounter (principal); S83.8X2A Sprain of other specified parts of left knee, initial encounter; W00.9XXA Unspecified fall due to ice and snow, initial encounter; Y93.9 Activity, unspecified; Y92.239 Unspecified place in hospital as the place of occurrence of the external cause; Y99.0 Civilian activity done for income or pay; E11.9 Type 2 diabetes mellitus without complications; I10 Essential (primary) hypertension; Z85.46 Personal history of malignant neoplasm of prostate; E78.00 Pure hypercholesterolemia, unspecified
CPT/HCPCS: 73110-TC-LT; 73130-TC-LT; 73562-TC-LT; 99281-25

== ENCOUNTER 2016-06-28 13:48 | Observation (INO) | payer OTHER ==
[2016-06-28 13:58] VITALS: BMI 32.4
--- NOTE | 2016-06-28 14:21 | PDOC ---
[id number]: No Limitations - History of Present Illness Initial Comments: 06/28/16 14:42 The patient is a 61 year old male, [employer] employee, with pmh of NIDDM, HTN, migraines, and prostate ca (not yet treated) who presents to the ED with right face droop and elevated blood pressure for 30 minutes. The patient states that he was at employee the [employer] [facility] when the nurse noticed a right sided facial droop but denies feeling any drooping sensation. The patient notes that last night he experienced 10 minutes of spotty and blurred vision. The patient reports mild left sided chest pain described as irritating in sensation. He notes that he has a stress test scheduled for friday. Patient notes that 3 weeks ago his started him on Myrbetriq. <Adonay Rasheed - Last Filed: 06/28/16 15:56> <Kaelyn Aguiar - Last Filed: 07/02/16 22:24> - General Chief Complaint: Blood Pressure Problem Stated Complaint: EMPLOYEE, SENT BY PCP Time Seen by Provider: 06/28/16 14:06 NIH Stroke Scale - Last Known Well Date/Time & Onset Date Last Known Well: 06/28/16 Time Last Known Well: 13:00 - Initial Evaluation Level of consciousness: Alert Ask patient the month and their age: Answers both correctly Ask patient to open & close eyes; make fist and let go: Obeys both correctly Best gaze (horizontal eye movement): Normal Visual field testing: No visual field loss Facial paresis (Show teeth/raise eyebrows/close eyes tight): Normal symmetrical movement Motor Function: Left Arm: Normal Motor Function: Right Arm: Normal (extends arm 90 (or 45) degrees for 10 seconds without drift Motor Function: Left Leg: Normal (extends leg 30 degrees for 5 seconds without drift) Motor Function: Right Leg: Normal (extends leg 30 degrees for 5 seconds without drift) Limb Ataxia: No ataxia Sensory(Use pinprick test arms,legs,trunk,face/side to side): Normal Best language (Describe picture, name items, read sentences): No Aphasia Dysarthria (read several words): Normal articulation Extinction and Inattention: No abnormality - Total Score NIH Stroke Scale Score: 0 <Kaelyn Aguiar - Last Filed: 07/02/16 22:24> Past History <Adonay Rasheed - Last Filed: 06/28/16 15:56> - Past Medical History Cancer: Yes (Prostate CA.) COPD: Yes (?) Diabetes: Yes HTN: Yes Hypercholesterolemia: Yes - Surgical History Abdominal Surgery: No Appendectomy: No Cardiac Surgery: No - Immunization History Immunization Up to Date: Yes - Psycho/Social/Smoking Cessation Hx Anxiety: No Suicidal Ideation: No Smoking Status: No Smoking History: Never smoked Have you smoked in the past 12 months: No Number of Cigarettes Smoked Daily: 0 If you are a former smoker, when did you quit?: 40 Information on smoking cessation initiated: No Hx Alcohol Use: No Drug/Substance Use Hx: No Substance Use Type: None <Kaelyn Aguiar - Last Filed: 07/02/16 22:24> - Past Medical History Allergies/Adverse Reactions: Allergies Allergy/AdvReac Type Severity Reaction Status Date / Time No Known Allergies Allergy Verified 06/28/16 13:55 Home Medications: Ambulatory Orders Albuterol Sulfate 0.5% [Ventolin 0.5% Nebulizing Soln. -] 1 neb IH PRN PRN 03/05 Albuterol Sulfate [Proair Respiclick] 90 mcg IH PRN PRN 03/05/16 Atorvastatin Ca [Lipitor] 20 mg PO DAILY 03/05/16 Beclomethasone Dipropionate [Qvar] 80 mcg IH DAILY 03/05/16 Cholecalciferol (Vitamin D3) [Vitamin D3] 1,000 unit PO DAILY 03/05/16 Glipizide Xl [Glucotrol Xl -] 5 mg PO DAILY 03/05/16 Losartan/Hydrochlorothiazide [Losartan-Hctz 100-25 mg Tab] 1 each PO DAILY 03/05 Metformin HCl [Metformin HCl ER] 500 mg PO BID 03/05/16 Multivitamin [Poly-Vitamin] 1 each PO DAILY 03/05/16 [place]-3S/Dha/Epa/Fish Oil [Fish Oil [place]-3 Softgel] 1 each PO DAILY 03/05/16 Sildenafil Citrate [Sildenafil] 20 mg PO DAILY 03/05/16 Tamsulosin HCl [Flomax] 0.8 mg PO DAILY 03/05/16 Vitamin B Complex [B Complex] 1 each PO DAILY 03/05/16 Mirabegron [Myrbetriq] 50 mg PO HS 05/30/16 Breo Ellipta 100-25 Mcg INH 06/28/16 Aspirin [ASA -] 81 mg PO DAILY #100 tab MDD 1 06/29/16 Review of Systems - Review of Systems Able to Perform ROS?: Yes Comments:: 06/28/16 14:42 GENERAL/CONSTITUTIONAL: No fever or chills. No weakness. HEAD, EYES, EARS, NOSE AND THROAT: Yes right sided facial droop, blurred vision , spotted vision. No ear pain or discharge. No sore throat. CARDIOVASCULAR: Yes chest pain, elevated blood pressure. No shortness of breath. RESPIRATORY: No cough, wheezing, or hemoptysis. GASTROINTESTINAL: No nausea, vomiting, diarrhea or constipation. GENITOURINARY: No dysuria, frequency, or change in urination. MUSCULOSKELETAL: No joint or muscle swelling or pain. No neck or back pain. SKIN: No rash NEUROLOGIC: No headache, vertigo, loss of consciousness, or change in strength/ sensation. ENDOCRINE: No increased thirst. No abnormal weight change. HEMATOLOGIC/LYMPHATIC: No anemia, easy bleeding, or history of blood clots. ALLERGIC/IMMUNOLOGIC: No hives or skin allergy. <Adonay Rasheed - Last Filed: 06/28/16 15:56> *Physical Exam - Vital Signs Last Vital Signs Temp Pulse Resp BP Pulse Ox 97.9 F 100 H 20 132/79 100 06/28/16 13:55 06/28/16 13:55 06/28/16 13:55 06/28/16 13:55 06/28/16 14:10 - Physical Exam Comments: 06/28/16 14:43 GENERAL: Awake, alert, and fully oriented, in no acute distress HEAD: No signs of trauma EYES: PERRLA, EOMI, sclera anicteric, conjunctiva clear ENT: Auricles normal inspection, hearing grossly normal, nares patent, oropharynx clear without exudates. Moist mucosa NECK: Normal ROM, supple, no lymphadenopathy, JVD, or masses LUNGS: Breath sounds equal, clear to auscultation bilaterally. No wheezes, and no crackles HEART: Regular rate and rhythm, normal S1 and S2, no murmurs, rubs or gallops ABDOMEN: Soft, nontender, normoactive bowel sounds. No guarding, no rebound. No masses EXTREMITIES: Normal range of motion, no edema. No clubbing or cyanosis. No cords, erythema, or tenderness NEUROLOGICAL: Cranial nerves II through XII grossly intact. Normal speech, normal gait SKIN: Warm, Dry, normal turgor, no rashes or lesions noted. <Adonay Rasheed - Last Filed: 06/28/16 15:56> - Vital Signs Last Vital Signs Temp Pulse Resp BP Pulse Ox 97.9 F 100 H 20 132/79 97 06/28/16 13:55 06/28/16 13:55 06/28/16 13:55 06/28/16 13:55 06/28/16 13:55 <Kaelyn Aguiar - Last Filed: 07/02/16 22:24> Heart Score/ECG Review - ECG Impressions Comment:: EKG read 14:47- NSR 90 bpm, no acute ST/T changes <Kaelyn Aguiar - Last Filed: 07/02/16 22:24> ED Treatment Course - LABORATORY CBC & Chemistry Diagram: 06/28/16 14:30 06/28/16 14:30 - RADIOLOGY Radiograph Interpretation: 06/28/16 15:56 EXAM#: TYPE/EXAM: RESULT: [id number] CT/HEAD CT WITHOUT CONTRAST CT SCAN OF THE BRAIN C-. Right facial droop resolved. Findings. Serial axial images of the brain were obtained from foramen magnum to the cranial vertex without intravenous contrast. The study was supplemented with computer-generated coronal and sagittal reconstruction images. Podiatry Assistant image was reviewed. There is no evidence of acute subarachnoid hemorrhage, acute intra-axial or extra-axial fluid collection consistent with subdural or epidural hematoma. No mass effect, midline shift, acute territorial ischemic changes, herniation or edema is present. Normal chaudhary matter white matter differentiation. The cortical sulci, sylvian fissures, perimesencephalic cisterns are not effaced. TSH spaces are age -appropriate with age-related involutional changes. Examination of the bone windows show no fracture. The visualized paranasal sinuses and mastoid air cells are clear. Symmetrical ocular globes. Unremarkable retro-orbital soft tissues. Impression. No evidence of acute intracranial hemorrhage, edema, midline shift, mass effect, or skull fracture. No CT evidence of acute territorial infarction Reported By: Jhon Healy MD 06/28/16 1541 <Adonay Rasheed - Last Filed: 06/28/16 15:56> - LABORATORY CBC & Chemistry Diagram: 06/29/16 06:20 06/29/16 06:20 <Kaelyn Aguiar - Last Filed: 07/02/16 22:24> Medical Decision Making - Medical Decision Making 16:23 Case d/w Dr. 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 Recommended admission for workup for TIA. NIHSS currently 0. I have discussed with patient, who agrees to admission. <Kaelyn Aguiar - Last Filed: 07/02/16 22:24> *DC/Admit/Observation/Transfer - Attestations Scribe Attestion: 06/28/16 14:44 Documentation prepared by Adonay Rasheed, acting as medical director of hospice for Kaelyn Aguiar MD. <Adonay Rasheed - Last Filed: 06/28/16 15:56> - Discharge Dispostion Admit: Yes <Kaelyn Aguiar - Last Filed: 07/02/16 22:24> Diagnosis at time of Disposition: TIA (transient ischemic attack) Qualifiers: Transient cerebral ischemia type: unspecified Qualified Code(s): G45.9 - Transient cerebral ischemic attack, unspecified - Discharge Dispostion Disposition: HOME Condition at time of disposition: Stable - Prescriptions - Referrals
[2016-06-28 14:58] LABS: BASOPHIL 1.3 % (0-2.0); EOSINOPHIL 11.9 % (0-4.5); MCH 28.7 pg (25.7-33.7); MCHC 32.5 g/dl (32.0-35.9); MEAN CELL VOLUME 88.5 fl (80-96); MEAN PLT VOLUME 6.4 fl (7.5-11.1); NEUTROPHILS 52.7 % (42.8-82.8); PLATELET COUNT 245 K/MM3 (134-434); RDW 13.8 % (11.9-15.9); WHITE BLOOD COUNT 6.6 K/mm3 (4.0-10.0)
[2016-06-28 15:30] LABS: ALBUMIN 4.1 g/dl (3.4-5.0); ANION GAP 8 (8-16); BILIRUBIN,TOTAL 0.4 mg/dL (0.2-1.0); CO2 30 mmol/L (21-32); CREATININE 0.8 mg/dL (0.7-1.3); GLUCOSE,RANDOM 131 mg/dL (74-106); SGOT/AST 23 U/L (15-37); SGPT/ALT 51 U/L (12-78); TOT PROT 7.7 g/dl (6.4-8.2)
[2016-06-28 15:32] LABS: ALK PHOS 82 U/L (45-117); TROPONIN I < 0.02 ng/ml (0.00-0.05)
--- NOTE | 2016-06-28 17:29 | HP ---
CHIEF COMPLAINT: PCP: HISTORY OF PRESENT ILLNESS: ER course was notable for: (1) (2) (3) Recent Travel: PAST MEDICAL HISTORY: PAST SURGICAL HISTORY: Social History: Smoking: Alcohol: Drugs: Family History: Allergies No Known Allergies Allergy (Verified 06/28/16 13:55) HOME MEDICATIONS: Home Medications Medication Instructions Recorded Albuterol Sulfate 0.5% [Ventolin 1 neb IH PRN PRN 03/05/16 0.5% Nebulizing Soln. -] Albuterol Sulfate [Proair 90 mcg IH PRN PRN 03/05/16 Respiclick] Atorvastatin Ca [Lipitor] 20 mg PO DAILY 03/05/16 Beclomethasone Dipropionate [Qvar] 8.7 gm IH DAILY 03/05/16 Cholecalciferol (Vitamin D3) 1,000 unit PO DAILY 03/05/16 [Vitamin D3] Glipizide Xl [Glucotrol Xl -] 5 mg PO DAILY 03/05/16 Losartan/Hydrochlorothiazide 1 each PO DAILY 03/05/16 [Losartan-Hctz 100-25 mg Tab] Metformin HCl [Metformin HCl ER] 1,000 mg PO DAILY 03/05/16 Multivitamin [Poly-Vitamin] 1 each PO DAILY 03/05/16 [place]-3S/Dha/Epa/Fish Oil [Fish 1 each PO DAILY 03/05/16 Oil [place]-3 Softgel] Sildenafil Citrate [Sildenafil] 20 mg PO DAILY 03/05/16 Tamsulosin HCl [Flomax] 0.8 mg PO DAILY 03/05/16 Vitamin B Complex [B Complex] 1 each PO DAILY 03/05/16 Mirabegron [Myrbetriq] 50 mg PO HS 05/30/16 REVIEW OF SYSTEMS CONSTITUTIONAL: Absent: fever, chills, diaphoresis, generalized weakness, malaise, loss of appetite, weight change HEENT: Absent: rhinorrhea, nasal congestion, throat pain, throat swelling, difficulty swallowing, mouth swelling, ear pain, eye pain, visual changes CARDIOVASCULAR: Absent: chest pain, syncope, palpitations, irregular heart rate, lightheadedness , peripheral edema RESPIRATORY: Absent: cough, shortness of breath, dyspnea with exertion, orthopnea, wheezing, stridor, hemoptysis GASTROINTESTINAL: Absent: abdominal pain, abdominal distension, nausea, vomiting, diarrhea, constipation, melena, hematochezia GENITOURINARY: Absent: dysuria, frequency, urgency, hesitancy, hematuria, flank pain, genital pain MUSCULOSKELETAL: Absent: myalgia, arthralgia, joint swelling, back pain, neck pain SKIN: Absent: rash, itching, pallor HEMATOLOGIC/IMMUNOLOGIC: Absent: easy bleeding, easy bruising, lymphadenopathy, frequent infections ENDOCRINE: Absent: unexplained weight gain, unexplained weight loss, heat intolerance, cold intolerance NEUROLOGIC: Absent: headache, focal weakness or paresthesias, dizziness, unsteady gait, seizure, mental status changes, bladder or bowel incontinence PSYCHIATRIC: Absent: anxiety, depression, suicidal or homicidal ideation, hallucinations. PHYSICAL EXAMINATION GENERAL: Awake, alert, and fully oriented, in no acute distress. HEAD: Normal with no signs of trauma. EYES: Pupils equal, round and reactive to light, extraocular movements intact, sclera anicteric, conjunctiva clear. No lid lag. EARS, NOSE, THROAT: Ears normal, nares patent, oropharynx clear without exudates. Moist mucous membranes. NECK: Normal range of motion, supple without lymphadenopathy, JVD, or masses. LUNGS: Breath sounds equal, clear to auscultation bilaterally. No wheezes, and no crackles. No accessory muscle use. HEART: Regular rate and rhythm, normal S1 and S2 without murmur, rub or gallop. ABDOMEN: Soft, nontender, not distended, normoactive bowel sounds, no guarding, no rebound, no masses. No hepatomegaly or splenomegaly. MUSCULOSKELETAL: Normal range of motion at all joints. No bony deformities or tenderness. No CVA tenderness. UPPER EXTREMITIES: 2+ pulses, warm, well-perfused. No cyanosis. No clubbing. No peripheral edema. LOWER EXTREMITIES: 2+ pulses, warm, well-perfused. No calf tenderness. No peripheral edema. NEUROLOGICAL: Cranial nerves II-XII intact. Normal speech. Normal gait. PSYCHIATRIC: Cooperative. Good eye contact. Appropriate mood and affect. SKIN: Warm, dry, normal turgor, no rashes or lesions noted, normal capillary refill. ASSESSMENT/PLAN:
--- NOTE | 2016-06-28 17:48 | PN ---
Teaching Attending Note Name of Resident: Roge Solo ATTENDING PHYSICIAN STATEMENT I saw and evaluated the patient. I reviewed the resident's note and discussed the case with the resident. I agree with the resident's findings and plan as documented. Vital Signs Temperature 97.9 F 06/28/16 13:55 Pulse Rate 100 H 06/28/16 13:55 Respiratory Rate 20 06/28/16 13:55 Blood Pressure 132/79 06/28/16 13:55 O2 Sat by Pulse Oximetry (%) 100 06/28/16 14:10 CBCD WBC 6.6 K/mm3 (4.0-10.0) 06/28/16 14:30 RBC 5.25 M/mm3 (4.00-5.60) 06/28/16 14:30 Hgb 15.1 GM/dL (11.7-16.9) 06/28/16 14:30 Hct 46.5 % (35.4-49) 06/28/16 14:30 MCV 88.5 fl (80-96) 06/28/16 14:30 MCHC 32.5 g/dl (32.0-35.9) 06/28/16 14:30 RDW 13.8 % (11.9-15.9) 06/28/16 14:30 Plt Count 245 K/MM3 (134-434) 06/28/16 14:30 MPV 6.4 fl (7.5-11.1) L 06/28/16 14:30 CMP Sodium 142 mmol/L (136-145) 06/28/16 14:30 Potassium 3.7 mmol/L (3.5-5.1) 06/28/16 14:30 Chloride 104 mmol/L (98-107) 06/28/16 14:30 Carbon Dioxide 30 mmol/L (21-32) 06/28/16 14:30 Anion Gap 8 (8-16) 06/28/16 14:30 BUN 19 mg/dL (7-18) H 06/28/16 14:30 Creatinine 0.8 mg/dL (0.7-1.3) 06/28/16 14:30 Creat Clearance w eGFR > 60 (>60) 06/28/16 14:30 Random Glucose 131 mg/dL (74-106) H D 06/28/16 14:30 Calcium 9.0 mg/dL (8.5-10.1) 06/28/16 14:30 Total Bilirubin 0.4 mg/dL (0.2-1.0) 06/28/16 14:30 AST 23 U/L (15-37) 06/28/16 14:30 ALT 51 U/L (12-78) 06/28/16 14:30 Alkaline Phosphatase 82 U/L (45-117) D 06/28/16 14:30 Total Protein 7.7 g/dl (6.4-8.2) 06/28/16 14:30 Albumin 4.1 g/dl (3.4-5.0) 06/28/16 14:30 CARDIAC ENZYMES Creatine Kinase 313 IU/L (39-308) H 06/28/16 14:30 Troponin I < 0.02 ng/ml (0.00-0.05) 06/28/16 14:30 Home Medications Medication Instructions Recorded Albuterol Sulfate 0.5% [Ventolin 1 neb IH PRN PRN 03/05/16 0.5% Nebulizing Soln. -] Albuterol Sulfate [Proair 90 mcg IH PRN PRN 03/05/16 Respiclick] Atorvastatin Ca [Lipitor] 20 mg PO DAILY 03/05/16 Beclomethasone Dipropionate [Qvar] 8.7 gm IH DAILY 03/05/16 Cholecalciferol (Vitamin D3) 1,000 unit PO DAILY 03/05/16 [Vitamin D3] Glipizide Xl [Glucotrol Xl -] 5 mg PO DAILY 03/05/16 Losartan/Hydrochlorothiazide 1 each PO DAILY 03/05/16 [Losartan-Hctz 100-25 mg Tab] Metformin HCl [Metformin HCl ER] 1,000 mg PO DAILY 03/05/16 Multivitamin [Poly-Vitamin] 1 each PO DAILY 03/05/16 [place]-3S/Dha/Epa/Fish Oil [Fish 1 each PO DAILY 03/05/16 Oil [place]-3 Softgel] Sildenafil Citrate [Sildenafil] 20 mg PO DAILY 03/05/16 Tamsulosin HCl [Flomax] 0.8 mg PO DAILY 03/05/16 Vitamin B Complex [B Complex] 1 each PO DAILY 03/05/16 Mirabegron [Myrbetriq] 50 mg PO HS 03/02/17 HPI/ROs/PE: per resident ASSESSMENT AND PLAN: Patient is a 61yo Male with multiple medical problems presented to the ED with TIA , went to [facility] clinic, where they realized that he has a facial droop. # Transient ischemic attack r/o CVA ; CT is negative , On Observation, neuro consult , patient will be going for MRI tonight carotid duplex US, aspirin 81mg , lipitor ,Neurochecks,Lipid profile ,HbA1C #T2DM: on SS with coverage # HTN: continue HCTZ/Losartan #HLD:continue statin #Prostate Ca: on flomax continue #Asthma: Nebs PRN
--- NOTE | 2016-06-28 19:04 | HP ---
CHIEF COMPLAINT:TIA PCP:[facility] HISTORY OF PRESENT ILLNESS: 61M with PMH HTN HLD DM Asthma migraine prostate Ca was working today here at [facility] and went to [place] for a PPD reading and the staff noticed he had right sided facial droop. Patient did not feel any symptoms and did not notice anything until the staff said something to him. He states last night he had some "weird vision changes with spotting". He denies nausea vomiting fevers chills shortness of breath. He states he has on and off chest discomfort but has not had any in a while. Patient had quick resolution of his symptoms by the time he went to the ED. Head CT WNL ER course was notable for: (1)Head CT (2)Labs (3) Recent Travel: PAST MEDICAL HISTORY:as above Social History: Smoking:former, quit 20-25 years ago, smoked approximately 1pk for several months Alcohol: socially Drugs: denies Family History: father age 84 had prostate cancer, mother age 70, several WI' s prior to age 50 and had breast cancer ( secondary to MVA). HOME MEDICATIONS: Home Medications Medication Instructions Recorded Albuterol Sulfate 0.5% [Ventolin 1 neb IH PRN PRN 03/05/16 0.5% Nebulizing Soln. -] Albuterol Sulfate [Proair 90 mcg IH PRN PRN 03/05/16 Respiclick] Atorvastatin Ca [Lipitor] 20 mg PO DAILY 03/05/16 Beclomethasone Dipropionate [Qvar] 8.7 gm IH DAILY 03/05/16 Cholecalciferol (Vitamin D3) 1,000 unit PO DAILY 03/05/16 [Vitamin D3] Glipizide Xl [Glucotrol Xl -] 5 mg PO DAILY 03/05/16 Losartan/Hydrochlorothiazide 1 each PO DAILY 03/05/16 [Losartan-Hctz 100-25 mg Tab] Metformin HCl [Metformin HCl ER] 1,000 mg PO DAILY 03/05/16 Multivitamin [Poly-Vitamin] 1 each PO DAILY 03/05/16 [place]-3S/Dha/Epa/Fish Oil [Fish 1 each PO DAILY 03/05/16 Oil [place]-3 Softgel] Sildenafil Citrate [Sildenafil] 20 mg PO DAILY 03/05/16 Tamsulosin HCl [Flomax] 0.8 mg PO DAILY 03/05/16 Vitamin B Complex [B Complex] 1 each PO DAILY 03/05/16 Mirabegron [Myrbetriq] 50 mg PO HS 05/30/16 REVIEW OF SYSTEMS CONSTITUTIONAL: Absent: fever, chills, diaphoresis, generalized weakness, malaise, loss of appetite, weight change HEENT: Absent: rhinorrhea, nasal congestion, throat pain, throat swelling, difficulty swallowing, mouth swelling, ear pain, eye pain, Present: Visual changes CARDIOVASCULAR: Absent: syncope, palpitations, irregular heart rate, lightheadedness, peripheral edema Present: chest pain RESPIRATORY: Absent: cough, shortness of breath, dyspnea with exertion, orthopnea, wheezing, stridor, hemoptysis GASTROINTESTINAL: Absent: abdominal pain, abdominal distension, nausea, vomiting, diarrhea, constipation, melena, hematochezia GENITOURINARY: Absent: dysuria, frequency, urgency, hesitancy, hematuria, flank pain, genital pain MUSCULOSKELETAL: Absent: myalgia, arthralgia, joint swelling, back pain, neck pain SKIN: Absent: rash, itching, pallor HEMATOLOGIC/IMMUNOLOGIC: Absent: easy bleeding, easy bruising, lymphadenopathy, frequent infections ENDOCRINE: Absent: unexplained weight gain, unexplained weight loss, heat intolerance, cold intolerance NEUROLOGIC: Absent: headache, focal weakness or paresthesias, dizziness, unsteady gait, seizure, mental status changes, bladder or bowel incontinence Present: Facial Droop PSYCHIATRIC: Absent: anxiety, depression, suicidal or homicidal ideation, hallucinations. PHYSICAL EXAMINATION GENERAL: Awake, alert, and fully oriented, in no acute distress. HEAD: Normal with no signs of trauma. EYES: Pupils equal, round and reactive to light, extraocular movements intact EARS, NOSE, THROAT: Moist mucous membranes. LUNGS: CTAB HEART: Regular rate and rhythm, normal S1 and S2 ABDOMEN: Soft, nontender, not distended, normoactive bowel sounds, no guarding, no rebound MUSCULOSKELETAL: . No CVA tenderness. UPPER EXTREMITIES: warm, well-perfused No peripheral edema. LOWER EXTREMITIES: warm, well-perfused. No calf tenderness. No peripheral edema. NEUROLOGICAL: Cranial nerves II-XII intact. Normal speech. Normal gait as observed while patient was walking. Global muscle strength 5/5 knee jerk and biceps jerk 2+ CT head-WNL Home Medication List Medication Instructions Recorded Confirmed Type Albuterol Sulfate 0.5% [Ventolin 1 neb IH PRN PRN 03/05/16 06/28/16 History 0.5% Nebulizing Soln. -] Albuterol Sulfate [Proair 90 mcg IH PRN PRN 03/05/16 06/28/16 History Respiclick] Atorvastatin Ca [Lipitor] 20 mg PO DAILY 03/05/16 06/28/16 History Beclomethasone Dipropionate [Qvar] 8.7 gm IH DAILY 03/05/16 06/28/16 History Cholecalciferol (Vitamin D3) 1,000 unit PO DAILY 03/05/16 06/28/16 History [Vitamin D3] Glipizide Xl [Glucotrol Xl -] 5 mg PO DAILY 03/05/16 06/28/16 History Losartan/Hydrochlorothiazide 1 each PO DAILY 03/05/16 06/28/16 History [Losartan-Hctz 100-25 mg Tab] Metformin HCl [Metformin HCl ER] 1,000 mg PO DAILY 03/05/16 06/28/16 History Multivitamin [Poly-Vitamin] 1 each PO DAILY 03/05/16 06/28/16 History [place]-3S/Dha/Epa/Fish Oil [Fish 1 each PO DAILY 03/05/16 06/28/16 History Oil [place]-3 Softgel] Sildenafil Citrate [Sildenafil] 20 mg PO DAILY 03/05/16 06/28/16 History Tamsulosin HCl [Flomax] 0.8 mg PO DAILY 03/05/16 06/28/16 History Vitamin B Complex [B Complex] 1 each PO DAILY 03/05/16 06/28/16 History Mirabegron [Myrbetriq] 50 mg PO HS 05/30/16 06/28/16 History Active Medications Generic Name Dose Route Start Last Admin Trade Name Freq PRN Reason Stop Dose Admin Aspirin 81 mg 06/28/16 19:00 Asa - PO DAILY [facility] Atorvastatin Calcium 20 mg 06/29/16 10:00 Lipitor - PO DAILY [facility] HCTZ/Losartan Potassium 2 tab 06/29/16 10:00 Hyzaar - PO DAILY [facility] Heparin Sodium (Porcine) 5,000 unit 06/28/16 22:00 Heparin - SQ BID [facility] Insulin Aspart 1 vial 06/28/16 22:00 Novolog Vial Sliding Scale - SQ ACHS [facility] Protocol Tamsulosin HCl 0.8 mg 06/29/16 08:30 Flomax - PO DAILY@0830 [facility] ASSESSMENT/PLAN: 61M with multiple medical problems presents to the [facility] TIA. Transient ischemic attack: possible CVA but given quick resolution of his symptoms it was likely a TIA with a negative CT place on tele/OBS neurology consult MRI brain carotid duplex US Aspirin 81mg Statin Neurochecks Lipid profile HbA1C DM: Hold oral hypoglycemics for now ISS Fingersticks for BGM ACHS HTN: Restart HCTZ/Losartan HLD: restart statin Prostate Ca: outpatient follow up restart flomax Asthma: Nebs PRN FEN: No IVF no electrolyte issues diabetic diet PPx: HSQ/SCDs no criteria met for GI PPx no PT consult needed Case discussed with Dr. Das Visit type - Emergency Visit Emergency Visit: Yes ED Registration Date: 06/28/16 Care time: The patient presented to the Emergency Department on the above date and was hospitalized for further evaluation of their emergent condition. - New Patient This patient is new to me today: Yes Date on this admission: 06/28/16 - Critical Care Critical Care patient: No
[2016-06-28] MEDS ORDERED: ASPIRIN COATED 81 MG TABLET.EC ONE (19:42)
[2016-06-28] MEDS: ASPIRIN 81 MG CHEWABLE TABLETS PO SCH (19:44)
[2016-06-28] MEDS ORDERED: HEPARIN NA (PORCINE) 5,000 UNITS/ML 1ML VIAL SQ SCH (22:00)
[2016-06-28] MEDS ORDERED: INSULIN (NOVOLOG) ASPART 100 UNITS/ML 10ML VIAL ONE (22:22)
[2016-06-28 22:45] LABS: TROPONIN I < 0.02 ng/ml (0.00-0.05)
[2016-06-28] MEDS: HEPARIN NA (PORCINE) 5,000 UNITS/ML 1ML VIAL SQ SCH (22:45)
[2016-06-28] MEDS: INSULIN SLIDING SCALE (NOVOLOG) 1 VIAL SQ SCH (22:46)
[2016-06-29 04:17] LABS: TROPONIN I < 0.02 ng/ml (0.00-0.05)
[2016-06-29] MEDS: HEPARIN NA (PORCINE) 5,000 UNITS/ML 1ML VIAL SQ SCH (06:01)
[2016-06-29] MEDS: INSULIN SLIDING SCALE (NOVOLOG) 1 VIAL SQ SCH ×2 (06:01→11:30)
[2016-06-29 07:36] LABS: MCH 28.9 pg (25.7-33.7); MCHC 32.6 g/dl (32.0-35.9); MEAN CELL VOLUME 88.5 fl (80-96); MEAN PLT VOLUME 6.7 fl (7.5-11.1); PLATELET COUNT 223 K/MM3 (134-434); RDW 13.8 % (11.9-15.9); WHITE BLOOD COUNT 6.6 K/mm3 (4.0-10.0)
[2016-06-29 08:00] LABS: ALBUMIN 3.6 g/dl (3.4-5.0); ANION GAP 8 (8-16); CALCIUM 8.6 mg/dL (8.5-10.1); CO2 31 mmol/L (21-32); GLUCOSE,RANDOM 96 mg/dL (74-106)
[2016-06-29 08:05] LABS: ALK PHOS 61 U/L (45-117); BILIRUBIN,TOTAL 0.4 mg/dL (0.2-1.0); CREATININE 0.8 mg/dL (0.7-1.3); PHOSPHOROUS 4.1 mg/dL (2.5-4.9); SGOT/AST 18 U/L (15-37); SGPT/ALT 45 U/L (12-78); TOT PROT 6.6 g/dl (6.4-8.2)
[2016-06-29 08:07] LABS: CHOLESTEROL 137 mg/dL (50-200); LDL CHOLESTEROL (ONLY SJRH) 44 mg/dL (5-100)
[2016-06-29] MEDS ORDERED: TAMSULOSIN HCL 0.4 MG CAP.ER.24H (FP) PO SCH (08:30)
[2016-06-29] MEDS: ASPIRIN 81 MG CHEWABLE TABLETS PO SCH (09:46)
--- NOTE | 2016-06-29 09:48 | PN ---
Physical Exam: SUBJECTIVE: Patient seen and examined Patient is comfortable with no acute distress, no shortness of breath, no nausea or vomiting, no headache, no further symptoms. OBJECTIVE: Vital Signs Temperature 98.3 F 06/29/16 02:14 Pulse Rate 88 06/29/16 02:14 Respiratory Rate 20 06/29/16 02:14 Blood Pressure 137/84 06/29/16 02:14 O2 Sat by Pulse Oximetry (%) 100 06/28/16 20:20 GENERAL: The patient is awake, alert, and fully oriented, in no acute distress. HEAD: Normal with no signs of trauma. EYES: PERRL, extraocular movements intact, sclera anicteric, conjunctiva clear. ENT: Ears normal, oropharynx clear without exudates, moist mucous membranes. NECK: Trachea midline, full range of motion, supple. LUNGS: Breath sounds equal, clear to auscultation bilaterally, no wheezes, no crackles, no accessory muscle use. HEART: Regular rate and rhythm, S1, S2 without murmur, rub or gallop. ABDOMEN: Soft, nontender, nondistended, normoactive bowel sounds, no guarding, no rebound, no hepatosplenomegaly, no masses. EXTREMITIES: 2+ pulses, warm, well-perfused, no edema. NEUROLOGICAL: Cranial nerves II through XII grossly intact. Normal speech, gait is normal. no facial droop, spec PSYCH: Normal mood, normal affect. SKIN: Warm, dry, normal turgor, no rashes or lesions noted CBCD WBC 6.6 K/mm3 (4.0-10.0) 06/29/16 06:20 RBC 4.95 M/mm3 (4.00-5.60) 06/29/16 06:20 Hgb 14.3 GM/dL (11.7-16.9) 06/29/16 06:20 Hct 43.8 % (35.4-49) 06/29/16 06:20 MCV 88.5 fl (80-96) 06/29/16 06:20 MCHC 32.6 g/dl (32.0-35.9) 06/29/16 06:20 RDW 13.8 % (11.9-15.9) 06/29/16 06:20 Plt Count 223 K/MM3 (134-434) 06/29/16 06:20 MPV 6.7 fl (7.5-11.1) L 06/29/16 06:20 CMP Sodium 143 mmol/L (136-145) 06/29/16 06:20 Potassium 4.0 mmol/L (3.5-5.1) 06/29/16 06:20 Chloride 104 mmol/L (98-107) 06/29/16 06:20 Carbon Dioxide 31 mmol/L (21-32) 06/29/16 06:20 Anion Gap 8 (8-16) 06/29/16 06:20 BUN 22 mg/dL (7-18) H 06/29/16 06:20 Creatinine 0.8 mg/dL (0.7-1.3) 06/29/16 06:20 Creat Clearance w eGFR > 60 (>60) 06/29/16 06:20 Random Glucose 96 mg/dL (74-106) D 06/29/16 06:20 Calcium 8.6 mg/dL (8.5-10.1) 06/29/16 06:20 Total Bilirubin 0.4 mg/dL (0.2-1.0) 06/29/16 06:20 AST 18 U/L (15-37) D 06/29/16 06:20 ALT 45 U/L (12-78) 06/29/16 06:20 Alkaline Phosphatase 61 U/L (45-117) D 06/29/16 06:20 Total Protein 6.6 g/dl (6.4-8.2) 06/29/16 06:20 Albumin 3.6 g/dl (3.4-5.0) 06/29/16 06:20 CARDIAC ENZYMES Creatine Kinase 263 IU/L (39-308) 06/29/16 02:47 Troponin I < 0.02 ng/ml (0.00-0.05) 06/29/16 02:47 Active Medications Generic Name Dose Route Start Last Admin Trade Name Freq PRN Reason Stop Dose Admin Aspirin 81 mg 06/28/16 19:00 06/28/16 19:44 Asa - PO 81 mg DAILY [facility] Administration Atorvastatin Calcium 20 mg 06/29/16 10:00 Lipitor - PO DAILY [facility] HCTZ/Losartan Potassium 2 tab 06/29/16 10:00 Hyzaar - PO DAILY [facility] Heparin Sodium (Porcine) 5,000 unit 06/28/16 22:00 06/29/16 06:01 Heparin - SQ 5,000 unit TID [facility] Administration Insulin Aspart 1 vial 06/28/16 22:00 06/29/16 06:01 Novolog Vial Sliding Scale - SQ Not Given ACHS [facility] Protocol Tamsulosin HCl 0.8 mg 06/29/16 08:30 Flomax - PO DAILY@0830 [facility] Home Medications Medication Instructions Recorded Albuterol Sulfate 0.5% [Ventolin 1 neb IH PRN PRN 03/05/16 0.5% Nebulizing Soln. -] Albuterol Sulfate [Proair 90 mcg IH PRN PRN 03/05/16 Respiclick] Atorvastatin Ca [Lipitor] 20 mg PO DAILY 03/05/16 Beclomethasone Dipropionate [Qvar] 80 mcg IH DAILY 03/05/16 Cholecalciferol (Vitamin D3) 1,000 unit PO DAILY 03/05/16 [Vitamin D3] Glipizide Xl [Glucotrol Xl -] 5 mg PO DAILY 03/05/16 Losartan/Hydrochlorothiazide 1 each PO DAILY 03/05/16 [Losartan-Hctz 100-25 mg Tab] Metformin HCl [Metformin HCl ER] 500 mg PO BID 03/05/16 Multivitamin [Poly-Vitamin] 1 each PO DAILY 03/05/16 [place]-3S/Dha/Epa/Fish Oil [Fish 1 each PO DAILY 03/05/16 Oil [place]-3 Softgel] Sildenafil Citrate [Sildenafil] 20 mg PO DAILY 03/05/16 Tamsulosin HCl [Flomax] 0.8 mg PO DAILY 03/05/16 Vitamin B Complex [B Complex] 1 each PO DAILY 03/05/16 Mirabegron [Myrbetriq] 50 mg PO HS 05/30/16 Breo Ellipta 100-25 Mcg INH 06/28/16 MRI of the brain without intravenous contrast A noncontrast MRI of the brain was performed with multiplanar T1 and T2-weighted images obtained. Compared to prior CT scan of the head dated 06/28/2016 there is mild volume loss and ventricular dilatation. Very minimal chronic microvascular ischemic changes are present. No mass lesion, focal acute infarct or intracranial hemorrhage is seen. There is no shift of the midline structures. The craniocervical junction appears unremarkable. Flow voids are present within the central intracranial arterial circulation. Mild chronic sinusitis. No suspicious bone marrow abnormal signal is identified. Impression: Mild volume loss and very minimal chronic microvascular ischemic changes without evidence of acute intracranial pathology. Mild chronic sinusitis Bilateral carotid Doppler ultrasound Grayscale, pulsed Doppler and color Doppler interrogation of both carotid and both vertebral arteries was performed. The right common carotid, internal and external external carotid artery were identified with a peak systolic velocity of 90, 90 and 77 cm/sec, respectively. The left common carotid, internal and external carotid artery were identified with a peak systolic velocity of 70, 53 and 65 cm/sec, respectively. Flow in the physiologic direction was documented in both vertebral arteries. Impression: Moderate-sized plaques at the right common carotid bifurcation and bulb as well as mild intimal thickening at the left common carotid bifurcation without evidence of hemodynamically significant stenosis, bilaterally. CT SCAN OF THE BRAIN C-. Right facial droop resolved. Findings. Serial axial images of the brain were obtained from foramen magnum to the cranial vertex without intravenous contrast. The study was supplemented with computer- generated coronal and sagittal reconstruction images. Health Information Manager image was reviewed. There is no evidence of acute subarachnoid hemorrhage, acute intra-axial or extra-axial fluid collection consistent with subdural or epidural hematoma. No mass effect, midline shift, acute territorial ischemic changes, herniation or edema is present. Normal chaudhary matter white matter differentiation. The cortical sulci, sylvian fissures, perimesencephalic cisterns are not effaced. ASSESSMENT/PLAN: Patient is a 61M with multiple medical problems presents to the ED with TIA. # Transient ischemic attack , CVA is ruled out, discussed with nerologist. patient can follow as an outpatient ; CT is negative , On Obs.Seen by neurologist . carotid duplex US, aspirin 81mg , lipitor ,Neurochecks,Lipid profile ,HbA1C; MRI result: Mild volume loss and very minimal chronic microvascular ischemic changes without evidence of acute intracranial pathology. Mild chronic sinusitis Moderate-sized plaques at the right common carotid bifurcation and bulb as well as mild intimal thickening at the left common carotid bifurcation without evidence of hemodynamically significant stenosis, bilaterally. #T2DM: continue Home meds # HTN: continue HCTZ/Losartan #HLD:continue statin on Lipitor continue and Fish oil #Prostate Ca: on flomax continue #Asthma: Nebs PRN
[2016-06-29] MEDS ORDERED: LOSARTAN 50MG/HCTZ 12.5MG 1 TAB (FP) PO SCH (10:00)
[2016-06-29] MEDS ORDERED: ATORVASTATIN CA 20 MG TABLET (FP) PO SCH (10:00)
[2016-06-29 10:31] VITALS: BP 126/81; PULSE 84; TEMP 97.8
[2016-06-29] MEDS ORDERED: ALBUTEROL SO4 0.083% IH SOL 2.5 MG/3 ML VIAL.NEB. NEB ONE (12:22)
--- NOTE | 2016-06-29 12:24 | EKG ---
Test Reason : Blood Pressure : / mmHG Vent. Rate : 090 BPM Atrial Rate : 090 BPM P-R Int : 174 ms QRS Dur : 094 ms QT Int : 358 ms P-R-T Axes : 054 036 021 degrees QTc Int : 437 ms NORMAL SINUS RHYTHM POSSIBLE LEFT ATRIAL ENLARGEMENT CANNOT RULE OUT ANTERIOR INFARCT , AGE UNDETERMINED ABNORMAL ECG WHEN COMPARED WITH ECG OF 30-MAY-2016 10:20, NO SIGNIFICANT CHANGE WAS FOUND Confirmed by AGUSTÍN RICARDO, IVANIA ([id number]) on 06/29/2016 12:24:03 PM Referred By: Confirmed By:IVANIA RANDOLPH MD
--- NOTE | 2016-06-29 12:26 | CONSULT ---
Consult Consult Specialty:: Neurology Reason for Consultation:: Right facial droop - History of Present Illness History of Present Illness: 61 year old man, history of hypertension, hyperlipidemia, diabetes, migraine, asthma, current employee of [employer], was at [facility] yesterday for a PPD follow up when he was noted to have an episode of transient right facial weakness. The patient himself did not notice the symptoms and denies any acute neurological issues. On exam NIHSS 0 CT head no acute findings MRI brain no evidence of stroke Echocardiogram 3 weeks prior showed normal LV function, moderate AV thickening Carotid dopplers moderate size plaque at R CC, no significant stenosis - History Source History Provided By: Patient - Past Medical History Cardio/Vascular: Yes: HTN Pulmonary: Yes: Asthma - Alcohol/Substance Use Hx Alcohol Use: No - Smoking History Smoking history: Never smoked Have you smoked in the past 12 months: No Aproximately how many cigarettes per day: 0 If you are a former smoker, when did you quit?: 40 Home Medications - Allergies Allergies/Adverse Reactions: Allergies Allergy/AdvReac Type Severity Reaction Status Date / Time No Known Allergies Allergy Verified 06/28/16 13:55 - Home Medications Home Medications: Ambulatory Orders Albuterol Sulfate 0.5% [Ventolin 0.5% Nebulizing Soln. -] 1 neb IH PRN PRN 03/05 Albuterol Sulfate [Proair Respiclick] 90 mcg IH PRN PRN 03/05/16 Atorvastatin Ca [Lipitor] 20 mg PO DAILY 03/05/16 Beclomethasone Dipropionate [Qvar] 80 mcg IH DAILY 03/05/16 Cholecalciferol (Vitamin D3) [Vitamin D3] 1,000 unit PO DAILY 03/05/16 Glipizide Xl [Glucotrol Xl -] 5 mg PO DAILY 03/05/16 Losartan/Hydrochlorothiazide [Losartan-Hctz 100-25 mg Tab] 1 each PO DAILY 03/05 Metformin HCl [Metformin HCl ER] 500 mg PO BID 03/05/16 Multivitamin [Poly-Vitamin] 1 each PO DAILY 03/05/16 [place]-3S/Dha/Epa/Fish Oil [Fish Oil [place]-3 Softgel] 1 each PO DAILY 03/05/16 Sildenafil Citrate [Sildenafil] 20 mg PO DAILY 03/05/16 Tamsulosin HCl [Flomax] 0.8 mg PO DAILY 03/05/16 Vitamin B Complex [B Complex] 1 each PO DAILY 03/05/16 Mirabegron [Myrbetriq] 50 mg PO HS 05/30/16 Breo Ellipta 100-25 Mcg INH 06/28/16 Family Disease History - Family Disease History Family History: Denies Review of Systems - Review of Systems Constitutional: reports: No Symptoms Eyes: reports: No Symptoms HENT: reports: No Symptoms Neck: reports: No Symptoms Cardiovascular: reports: No Symptoms Respiratory: reports: No Symptoms Neurological: reports: No Symptoms Physical Exam Vital Signs: Vital Signs Temperature 97.8 F 06/29/16 10:00 Pulse Rate 84 06/29/16 10:00 Respiratory Rate 20 06/29/16 10:00 Blood Pressure 126/81 06/29/16 10:00 O2 Sat by Pulse Oximetry (%) 100 06/28/16 20:20 Constitutional: Yes: No Distress, Calm Eyes: Yes: Conjunctiva Clear, EOM Intact HENT: Yes: Atraumatic, Normocephalic Cardiovascular: Yes: S1, S2 Neurological: Yes: Alert, Oriented, Cran Nerves II-XII Intact ...Motor Strength: WNL Labs: CBC, BMP 06/29/16 06:20 06/29/16 06:20 Assessment/Plan 61 year old man, history of hypertension, hyperlipidemia, diabetes, migraine, asthma, current employee of [employer], was at [facility] yesterday for a PPD follow up when he was noted to have an episode of transient right facial weakness. The patient himself did not notice the symptoms and denies any acute neurological issues. Right facial weakness, resolved ?TIA On exam NIHSS 0 CT head no acute findings MRI brain no evidence of stroke Echocardiogram 3 weeks prior showed normal LV function, moderate AV thickening Carotid dopplers moderate size plaque at R CC, no significant stenosis Recommend Continue aspirin 81 mg daily Continue statin States he recently had lipid profile as outpatient Vascular consult, as outpatient, for carotid doppler findings Patient likely d/og today, recommend follow up with neuro as outpatient
--- NOTE | 2016-06-29 12:35 | DS ---
Physical Examination Vital Signs: Right facial weakness, resolved ?TIA On exam NIHSS 0 CT head no acute findings MRI brain no evidence of stroke Echocardiogram 3 weeks prior showed normal LV function, moderate AV thickening Carotid dopplers moderate size plaque at R CC, no significant stenosis Labs: CBC, BMP 06/29/16 06:20 06/29/16 06:20 Discharge Summary Reason For Visit: TRANSIENT CEREBRAL ISCHEMIA Current Active Problems TIA (transient ischemic attack) (Acute) Condition: Stable - Instructions Referrals: Davy Gorman MD [Primary Care Provider] - - Home Medications Comprehensive Discharge Medication List: Ambulatory Orders Albuterol Sulfate 0.5% [Ventolin 0.5% Nebulizing Soln. -] 1 neb IH PRN PRN 03/05 Albuterol Sulfate [Proair Respiclick] 90 mcg IH PRN PRN 03/05/16 Atorvastatin Ca [Lipitor] 20 mg PO DAILY 03/05/16 Beclomethasone Dipropionate [Qvar] 80 mcg IH DAILY 03/05/16 Cholecalciferol (Vitamin D3) [Vitamin D3] 1,000 unit PO DAILY 03/05/16 Glipizide Xl [Glucotrol Xl -] 5 mg PO DAILY 03/05/16 Losartan/Hydrochlorothiazide [Losartan-Hctz 100-25 mg Tab] 1 each PO DAILY 03/05 Metformin HCl [Metformin HCl ER] 500 mg PO BID 03/05/16 Multivitamin [Poly-Vitamin] 1 each PO DAILY 03/05/16 [place]-3S/Dha/Epa/Fish Oil [Fish Oil [place]-3 Softgel] 1 each PO DAILY 03/05/16 Sildenafil Citrate [Sildenafil] 20 mg PO DAILY 03/05/16 Tamsulosin HCl [Flomax] 0.8 mg PO DAILY 03/05/16 Vitamin B Complex [B Complex] 1 each PO DAILY 03/05/16 Mirabegron [Myrbetriq] 50 mg PO HS 05/30/16 Breo Ellipta 100-25 Mcg INH 06/28/16
--- NOTE | 2016-06-29 12:36 | DS ---
Physical Exam: SUBJECTIVE: Patient seen and examined Patient is comfortable with no acute distress, no shortness of breath, no nausea or vomiting, no headache, no further symptoms. OBJECTIVE: Vital Signs Temperature 98.3 F 06/29/16 02:14 Pulse Rate 88 06/29/16 02:14 Respiratory Rate 20 06/29/16 02:14 Blood Pressure 137/84 06/29/16 02:14 O2 Sat by Pulse Oximetry (%) 100 06/28/16 20:20 GENERAL: The patient is awake, alert, and fully oriented, in no acute distress. HEAD: Normal with no signs of trauma. EYES: PERRL, extraocular movements intact, sclera anicteric, conjunctiva clear. ENT: Ears normal, oropharynx clear without exudates, moist mucous membranes. NECK: Trachea midline, full range of motion, supple. LUNGS: Breath sounds equal, clear to auscultation bilaterally, no wheezes, no crackles, no accessory muscle use. HEART: Regular rate and rhythm, S1, S2 without murmur, rub or gallop. ABDOMEN: Soft, nontender, nondistended, normoactive bowel sounds, no guarding, no rebound, no hepatosplenomegaly, no masses. EXTREMITIES: 2+ pulses, warm, well-perfused, no edema. NEUROLOGICAL: Cranial nerves II through XII grossly intact. Normal speech, gait is normal. no facial droop, spec PSYCH: Normal mood, normal affect. SKIN: Warm, dry, normal turgor, no rashes or lesions noted CBCD WBC 6.6 K/mm3 (4.0-10.0) 06/29/16 06:20 RBC 4.95 M/mm3 (4.00-5.60) 06/29/16 06:20 Hgb 14.3 GM/dL (11.7-16.9) 06/29/16 06:20 Hct 43.8 % (35.4-49) 06/29/16 06:20 MCV 88.5 fl (80-96) 06/29/16 06:20 MCHC 32.6 g/dl (32.0-35.9) 06/29/16 06:20 RDW 13.8 % (11.9-15.9) 06/29/16 06:20 Plt Count 223 K/MM3 (134-434) 06/29/16 06:20 MPV 6.7 fl (7.5-11.1) L 06/29/16 06:20 CMP Sodium 143 mmol/L (136-145) 06/29/16 06:20 Potassium 4.0 mmol/L (3.5-5.1) 06/29/16 06:20 Chloride 104 mmol/L (98-107) 06/29/16 06:20 Carbon Dioxide 31 mmol/L (21-32) 06/29/16 06:20 Anion Gap 8 (8-16) 06/29/16 06:20 BUN 22 mg/dL (7-18) H 06/29/16 06:20 Creatinine 0.8 mg/dL (0.7-1.3) 06/29/16 06:20 Creat Clearance w eGFR > 60 (>60) 06/29/16 06:20 Random Glucose 96 mg/dL (74-106) D 06/29/16 06:20 Calcium 8.6 mg/dL (8.5-10.1) 06/29/16 06:20 Total Bilirubin 0.4 mg/dL (0.2-1.0) 06/29/16 06:20 AST 18 U/L (15-37) D 06/29/16 06:20 ALT 45 U/L (12-78) 06/29/16 06:20 Alkaline Phosphatase 61 U/L (45-117) D 06/29/16 06:20 Total Protein 6.6 g/dl (6.4-8.2) 06/29/16 06:20 Albumin 3.6 g/dl (3.4-5.0) 06/29/16 06:20 CARDIAC ENZYMES Creatine Kinase 263 IU/L (39-308) 06/29/16 02:47 Troponin I < 0.02 ng/ml (0.00-0.05) 06/29/16 02:47 Active Medications Generic Name Dose Route Start Last Admin Trade Name Freq PRN Reason Stop Dose Admin Aspirin 81 mg 06/28/16 19:00 06/28/16 19:44 Asa - PO 81 mg DAILY [facility] Administration Atorvastatin Calcium 20 mg 06/29/16 10:00 Lipitor - PO DAILY [facility] HCTZ/Losartan Potassium 2 tab 06/29/16 10:00 Hyzaar - PO DAILY [facility] Heparin Sodium (Porcine) 5,000 unit 06/28/16 22:00 06/29/16 06:01 Heparin - SQ 5,000 unit TID [facility] Administration Insulin Aspart 1 vial 06/28/16 22:00 06/29/16 06:01 Novolog Vial Sliding Scale - SQ Not Given ACHS [facility] Protocol Tamsulosin HCl 0.8 mg 06/29/16 08:30 Flomax - PO DAILY@0830 [facility] Home Medications Medication Instructions Recorded Albuterol Sulfate 0.5% [Ventolin 1 neb IH PRN PRN 03/05/16 0.5% Nebulizing Soln. -] Albuterol Sulfate [Proair 90 mcg IH PRN PRN 03/05/16 Respiclick] Atorvastatin Ca [Lipitor] 20 mg PO DAILY 03/05/16 Beclomethasone Dipropionate [Qvar] 80 mcg IH DAILY 03/05/16 Cholecalciferol (Vitamin D3) 1,000 unit PO DAILY 03/05/16 [Vitamin D3] Glipizide Xl [Glucotrol Xl -] 5 mg PO DAILY 03/05/16 Losartan/Hydrochlorothiazide 1 each PO DAILY 03/05/16 [Losartan-Hctz 100-25 mg Tab] Metformin HCl [Metformin HCl ER] 500 mg PO BID 03/05/16 Multivitamin [Poly-Vitamin] 1 each PO DAILY 03/05/16 [place]-3S/Dha/Epa/Fish Oil [Fish 1 each PO DAILY 03/05/16 Oil [place]-3 Softgel] Sildenafil Citrate [Sildenafil] 20 mg PO DAILY 03/05/16 Tamsulosin HCl [Flomax] 0.8 mg PO DAILY 03/05/16 Vitamin B Complex [B Complex] 1 each PO DAILY 03/05/16 Mirabegron [Myrbetriq] 50 mg PO HS 05/30/16 Breo Ellipta 100-25 Mcg INH 06/28/16 HOSPITAL COURSE: Date of Admission:06/28/16 Date of Discharge: 06/29/16 MRI of the brain without intravenous contrast A noncontrast MRI of the brain was performed with multiplanar T1 and T2-weighted images obtained. Compared to prior CT scan of the head dated 06/28/2016 there is mild volume loss and ventricular dilatation. Very minimal chronic microvascular ischemic changes are present. No mass lesion, focal acute infarct or intracranial hemorrhage is seen. There is no shift of the midline structures. The craniocervical junction appears unremarkable. Flow voids are present within the central intracranial arterial circulation. Mild chronic sinusitis. No suspicious bone marrow abnormal signal is identified. Impression: Mild volume loss and very minimal chronic microvascular ischemic changes without evidence of acute intracranial pathology. Mild chronic sinusitis Bilateral carotid Doppler ultrasound Grayscale, pulsed Doppler and color Doppler interrogation of both carotid and both vertebral arteries was performed. The right common carotid, internal and external external carotid artery were identified with a peak systolic velocity of 90, 90 and 77 cm/sec, respectively. The left common carotid, internal and external carotid artery were identified with a peak systolic velocity of 70, 53 and 65 cm/sec, respectively. Flow in the physiologic direction was documented in both vertebral arteries. Impression: Moderate-sized plaques at the right common carotid bifurcation and bulb as well as mild intimal thickening at the left common carotid bifurcation without evidence of hemodynamically significant stenosis, bilaterally. CT SCAN OF THE BRAIN C-. Right facial droop resolved. Findings. Serial axial images of the brain were obtained from foramen magnum to the cranial vertex without intravenous contrast. The study was supplemented with computer- generated coronal and sagittal reconstruction images. Window Glazier Helper image was reviewed. There is no evidence of acute subarachnoid hemorrhage, acute intra-axial or extra-axial fluid collection consistent with subdural or epidural hematoma. No mass effect, midline shift, acute territorial ischemic changes, herniation or edema is present. Normal chaudhary matter white matter differentiation. The cortical sulci, sylvian fissures, perimesencephalic cisterns are not effaced. Patient is a 61M with multiple medical problems presents to the ED with TIA. # Transient ischemic attack , CVA is ruled out, discussed with nerologist. patient can follow as an outpatient ; CT is negative , On Obs.Seen by neurologist . carotid duplex US, aspirin 81mg , lipitor ,Neurochecks,Lipid profile ,HbA1C; MRI result: Mild volume loss and very minimal chronic microvascular ischemic changes without evidence of acute intracranial pathology. Mild chronic sinusitis Moderate-sized plaques at the right common carotid bifurcation and bulb as well as mild intimal thickening at the left common carotid bifurcation without evidence of hemodynamically significant stenosis, bilaterally. #T2DM: continue Home meds # HTN: continue HCTZ/Losartan #HLD:continue statin on Lipitor continue and Fish oil #Prostate Ca: on flomax continue #Asthma: Nebs PRN discharge time 40 minutes , discussed with nurse, Neurologist, patient. Minutes to complete discharge: 40 Discharge Summary Reason For Visit: TRANSIENT CEREBRAL ISCHEMIA Current Active Problems TIA (transient ischemic attack) (Acute) Condition: Stable - Instructions Referrals: Davy Gorman MD [Primary Care Provider] - - Home Medications Comprehensive Discharge Medication List: Ambulatory Orders Albuterol Sulfate 0.5% [Ventolin 0.5% Nebulizing Soln. -] 1 neb IH PRN PRN 03/05 Albuterol Sulfate [Proair Respiclick] 90 mcg IH PRN PRN 03/05/16 Atorvastatin Ca [Lipitor] 20 mg PO DAILY 03/05/16 Beclomethasone Dipropionate [Qvar] 80 mcg IH DAILY 03/05/16 Cholecalciferol (Vitamin D3) [Vitamin D3] 1,000 unit PO DAILY 03/05/16 Glipizide Xl [Glucotrol Xl -] 5 mg PO DAILY 03/05/16 Losartan/Hydrochlorothiazide [Losartan-Hctz 100-25 mg Tab] 1 each PO DAILY 03/05 Metformin HCl [Metformin HCl ER] 500 mg PO BID 03/05/16 Multivitamin [Poly-Vitamin] 1 each PO DAILY 03/05/16 [place]-3S/Dha/Epa/Fish Oil [Fish Oil [place]-3 Softgel] 1 each PO DAILY 03/05/16 Sildenafil Citrate [Sildenafil] 20 mg PO DAILY 03/05/16 Tamsulosin HCl [Flomax] 0.8 mg PO DAILY 03/05/16 Vitamin B Complex [B Complex] 1 each PO DAILY 03/05/16 Mirabegron [Myrbetriq] 50 mg PO HS 05/30/16 Breo Ellipta 100-25 Mcg INH 06/28/16 This patient is new to me today: No Emergency Visit: Yes ED Registration Date: 06/28/16 Care time: The patient presented to the Emergency Department on the above date and was hospitalized for further evaluation of their emergent condition. Critical Care patient: No - Discharge Referral Referred to [facility] Med [facility].C[facility] Yes Physician Referral: Matthew Biggs DO ([facility])
== END 2016-06-29 13:54 | disposition home or self-care (01) ==
LOC: JER 13:48 → JERBED 16:53 → INTOOBSV 16:53 → J4S 19:53
PROVIDERS: ADMIT Internal Medicine; ATTEND Internal Medicine
PROC: 3E013GC Introduction of Other Therapeutic Substance into Subcutaneous Tissue, Percutaneous Approach (ICD-10-PCS; principal; 2016-06-28)
PROC: 3E0F7GC Introduction of Other Therapeutic Substance into Respiratory Tract, Via Natural or Artificial Opening (ICD-10-PCS; 2016-06-28)
DX: G45.9 Transient cerebral ischemic attack, unspecified (principal); E11.9 Type 2 diabetes mellitus without complications; I10 Essential (primary) hypertension; C61 Malignant neoplasm of prostate; J45.909 Unspecified asthma, uncomplicated; E78.00 Pure hypercholesterolemia, unspecified; Z79.82 Long term (current) use of aspirin
CPT/HCPCS: 36415; 70450-TC; 70551-TC; 80053; 80061; 82550; 82553; 83036; 83721; 83735; 84100; 84484; 85025; 85027; 93005; 93010; 93880-TC; 97116-GP; 99285-25; G0378; J1644

== ENCOUNTER 2016-09-23 00:20 | Emergency (ER) | payer OTHER ==
[2016-09-23 00:32] VITALS: TEMP 98.2; BMI 33.3
--- NOTE | 2016-09-23 00:43 | PDOC ---
History of Present Illness - General History Source: Patient Exam Limitations: No Limitations - History of Present Illness Initial Comments: 09/23/16 00:51 The patient is a 61 year old male, [employer] employee, with a significant past medical history of NIDDM, HTN, migraine, and prostate CA, who presents to the ER with left leg redness and [place] the [place]. Patient states he cut his left melara against a rock in [facility]. He did not pay much mind to the area until today. Patient believes he had a subjective fever today and spent most of the day sleeping. He reports coming back from [facility] today. Patient says he feels like the skin in the area stretches every time he walks. Denies chills, cough Denies nausea, vomiting Denies paresthesia, numbness, or swelling <Deisy Cervantes - Last Filed: 09/23/16 00:51> - General History Source: Patient Exam Limitations: No Limitations <Tara Weller - Last Filed: 09/23/16 03:20> - General Chief Complaint: Redness To Affected Area Stated Complaint: LEG INJURY Time Seen by Provider: 09/23/16 00:29 Past History <Deisy Cervantes - Last Filed: 09/23/16 00:51> - Past Medical History Cancer: Yes (Prostate CA.) COPD: Yes (?) Diabetes: Yes HTN: Yes Hypercholesterolemia: Yes - Surgical History Abdominal Surgery: No Appendectomy: No Cardiac Surgery: No - Immunization History Immunization Up to Date: Yes - Psycho/Social/Smoking Cessation Hx Anxiety: No Suicidal Ideation: No Smoking Status: No Smoking History: Never smoked Have you smoked in the past 12 months: No Number of Cigarettes Smoked Daily: 0 If you are a former smoker, when did you quit?: 40 Information on smoking cessation initiated: No Hx Alcohol Use: No Drug/Substance Use Hx: No Substance Use Type: None <Tara Weller - Last Filed: 09/23/16 03:20> - Past Medical History Allergies/Adverse Reactions: Allergies Allergy/AdvReac Type Severity Reaction Status Date / Time No Known Allergies Allergy Verified 09/23/16 00:30 Home Medications: Ambulatory Orders Albuterol Sulfate 0.5% [Ventolin 0.5% Nebulizing Soln. -] 1 neb IH PRN PRN 03/05 Albuterol Sulfate [Proair Respiclick] 90 mcg IH PRN PRN 03/05/16 Atorvastatin Ca [Lipitor] 20 mg PO DAILY 03/05/16 Beclomethasone Dipropionate [Qvar] 80 mcg IH DAILY 03/05/16 Cholecalciferol (Vitamin D3) [Vitamin D3] 1,000 unit PO DAILY 03/05/16 Glipizide Xl [Glucotrol Xl -] 5 mg PO DAILY 03/05/16 Losartan/Hydrochlorothiazide [Losartan-Hctz 100-25 mg Tab] 1 each PO DAILY 03/05 Metformin HCl [Metformin HCl ER] 500 mg PO BID 03/05/16 Multivitamin [Poly-Vitamin] 1 each PO DAILY 03/05/16 [place]-3S/Dha/Epa/Fish Oil [Fish Oil [place]-3 Softgel] 1 each PO DAILY 03/05/16 Sildenafil Citrate [Sildenafil] 20 mg PO DAILY 03/05/16 Tamsulosin HCl [Flomax] 0.8 mg PO DAILY 03/05/16 Vitamin B Complex [B Complex] 1 each PO DAILY 03/05/16 Mirabegron [Myrbetriq] 50 mg PO HS 05/30/16 Breo Ellipta 100-25 Mcg INH 06/28/16 Aspirin [ASA -] 81 mg PO DAILY #100 tab MDD 1 06/29/16 Clindamycin [Cleocin -] 300 mg PO Q6HPO #28 capsule 09/23/16 Review of Systems - Review of Systems Able to Perform ROS?: Yes Comments:: 09/23/16 00:51 Template ROS GENERAL/CONSTITUTIONAL: (+) fever. No: chills, weakness, loss of appetite. HEAD, EYES, EARS, NOSE AND THROAT: No: change in vision, ear pain, discharge, sore throat, throat swelling. CARDIOVASCULAR: No: chest pain, lightheadedness, palpitations, syncope RESPIRATORY: No: cough, shortness of breath, wheezing, hemoptysis, stridor. GASTROINTESTINAL: No: nausea, vomiting, abdominal cramping, diarrhea, rectal bleeding, constipation. GENITOURINARY: No: dysuria, hematuria, frequency, urgency, flank pain. MUSCULOSKELETAL: No: back pain, neck pain, joint pain, muscle swelling or pain SKIN AND BREASTS: (+) left melara laceration. No: lesions, pallor, rash or easy bruising. NEUROLOGIC: No: headache, vertigo, paresthesias, weakness ENDOCRINE: No: unexplained weight gain or loss HEMATOLOGIC/LYMPHATIC: No: anemia, easy bleeding, swelling nodes <Uts,Deisy - Last Filed: 09/23/16 00:51> *Physical Exam - Vital Signs Last Vital Signs Temp Pulse Resp BP Pulse Ox 98.2 F 95 H 20 145/85 97 09/23/16 00:30 09/23/16 00:30 09/23/16 00:30 09/23/16 00:30 09/23/16 00:30 - Physical Exam Comments: 09/23/16 00:52 GENERAL: The patient is in no acute distress. HEAD: Normal with no signs of trauma. EYES: PERRLA, EOMI, sclera anicteric, conjunctiva clear. ENT: Ears normal, nares patent, oropharynx clear without exudates. Moist mucous membranes. NECK: Normal range of motion, supple without lymphadenopathy, JVD, or masses. LUNGS: Breath sounds equal, clear to auscultation bilaterally. No wheezes, and no crackles. HEART:Regular rate and rhythm, normal S1 and S2 without murmur, rub or gallop. ABDOMEN: Soft, nontender, normoactive bowel sounds. No guarding, no rebound. EXTREMITIES: Tenderness to the anterior left melara. Normal range of motion, no edema. No clubbing or cyanosis. NEUROLOGICAL: Cranial nerves II through XII grossly intact. Normal speech. No focal neurological deficits. MUSCULOSKELETAL: Back non-tender to palpation, no CVA tenderness SKIN: Left melara 4 cm laceration of the skin with eschar and surrounding erythema and warmth. No edema of the lower extremity. Warm, Dry, normal turgor. <Scs,Deisy - Last Filed: 09/23/16 00:51> - Vital Signs Last Vital Signs Temp Pulse Resp BP Pulse Ox 98.2 F 95 H 20 145/85 97 09/23/16 00:30 09/23/16 00:30 09/23/16 00:30 09/23/16 00:30 09/23/16 00:30 <Tara Weller - Last Filed: 09/23/16 03:20> ED Treatment Course - LABORATORY CBC & Chemistry Diagram: 09/23/16 01:03 09/23/16 01:03 <Tara Weller - Last Filed: 09/23/16 03:20> Medical Decision Making - Medical Decision Making 09/23/16 00:42 A portion of this note was documented by scribe services under my direction. I have reviewed the details of the note, within reason, and agree with the documentation with the following case summary and management plan written by me. Nursing documentation reviewed and incorporated into medical decision making 09/23/16 01:57 This patient is a 61-year-old male with a history of diabetes, hypertension, hyperlipidemia, coronary artery disease. He presents to the emergency department with lower extremity cellulitis. Patient states he cut his melara on a rock on the [facility] 4 days ago. He repeatedly exposed his laceration to saltwater. He returned to the [facility] today, noted worsening lower extremity erythema 09/23/16 03:12 09/23/16 03:12 Laboratory Tests 09/23/16 09/23/16 01:03 01:03 WBC 6.8 Hgb 12.8 D Hct 39.6 Plt Count 243 Neutrophils % 52.4 Lymphocytes % 31.7 D Sodium 142 Potassium 3.4 L Chloride 103 Carbon Dioxide 31 BUN 23 H Creatinine 1.0 D Random Glucose 227 H D Case reviewed with Dr Marcano would discharge for now given no fever, no WBC elevation I have reviewed with this patient the risk of a wider variety of bacteria as a cause of his local infection given his skin laceration and exposure to sea water - Aeromonas, Erysipelothrix, Edwardsiella, Vibrio and Mycobacterium <Tara Weller - Last Filed: 09/23/16 03:20> *DC/Admit/Observation/Transfer - Attestations Scribe Attestion: 09/23/16 00:54 Documentation prepared by Deisy Cervantes, acting as medical lead for Tara Weller MD. <Deisy Cervantes - Last Filed: 09/23/16 00:51> - Discharge Dispostion Admit: No <Tara Weller - Last Filed: 09/23/16 03:20> Diagnosis at time of Disposition: Cellulitis Qualifiers: Site of cellulitis: extremity Site of cellulitis of extremity: lower extremity Laterality: left Qualified Code(s): L03.116 - Cellulitis of left lower limb - Discharge Dispostion Disposition: HOME Condition at time of disposition: Stable - Prescriptions Prescriptions: Clindamycin [Cleocin -] 300 mg PO Q6HPO #28 capsule - Patient Instructions Printed Discharge Instructions: DI for Cellulitis -- Adult Additional Instructions: Emilee Noble Thank you for coming in to the ER today Please take antibiotics as prescribed Please follow up with your primary physician within 2-3 days Please take a photograph of your leg now Please monitor for spreading erythema, drainage, fevers, chills If you notice any of these things, please return to the ER immediately Please return to the ER TOMORROW for re evaluation Please review the uptodate information given - Post Discharge Activity Work/School Note: Back to Work
[2016-09-23 01:12] LABS: EOSINOPHIL 4.3 % (0-4.5); MCH 28.6 pg (25.7-33.7); MCHC 32.4 g/dl (32.0-35.9); MEAN CELL VOLUME 88.3 fl (80-96); MEAN PLT VOLUME 6.4 fl (7.5-11.1); NEUTROPHILS 52.4 % (42.8-82.8); PLATELET COUNT 243 K/MM3 (134-434); RDW 13.7 % (11.9-15.9); WHITE BLOOD COUNT 6.8 K/mm3 (4.0-10.0)
[2016-09-23 01:58] LABS: ALBUMIN 3.7 g/dl (3.4-5.0); ANION GAP 8 (8-16); BILIRUBIN,TOTAL 0.4 mg/dL (0.2-1.0); CALCIUM 8.7 mg/dL (8.5-10.1); CO2 31 mmol/L (21-32); GLUCOSE,RANDOM 227 mg/dL (74-106); SGOT/AST 23 U/L (15-37); SGPT/ALT 43 U/L (12-78)
[2016-09-23 02:00] LABS: ALK PHOS 95 U/L (45-117); TOT PROT 6.7 g/dl (6.4-8.2)
[2016-09-23] MEDS ORDERED: CLINDAMYCIN HCL 150 MG CAPSULE (FP) PO ONE (03:12)
[2016-09-23] MEDS ORDERED: CLINDAMYCIN HCL 150 MG CAPSULE (FP) ONE (03:22)
[2016-09-23 05:21] VITALS: BP 142/84; PULSE 89
== END 2016-09-23 03:40 | disposition home or self-care (01) ==
LOC: JER 00:20
DX: L03.116 Cellulitis of left lower limb (principal); I10 Essential (primary) hypertension; E11.9 Type 2 diabetes mellitus without complications; Z79.84 Long term (current) use of oral hypoglycemic drugs; E78.00 Pure hypercholesterolemia, unspecified; Z85.46 Personal history of malignant neoplasm of prostate
CPT/HCPCS: 36415; 80053; 85025; 87040; 99282-25

== ENCOUNTER 2016-09-26 20:09 | Inpatient (IN) | payer OTHER ==
[2016-09-26 20:27] VITALS: BMI 32.2
--- NOTE | 2016-09-26 20:49 | PDOC ---
History of Present Illness - General Chief Complaint: Wound Infection Stated Complaint: LEFT FOOT WOUND Time Seen by Provider: 09/26/16 20:31 History Source: Patient Exam Limitations: No Limitations - History of Present Illness Initial Comments: 09/26/16 20:53 No PMD: Pt saw Infectious Disease MD: Dr. Arias today/ Advised to be seen in the ER Pt saw Dr. Mark Biggs/Vascular; advised to be seen in the ER 61-year-old male with a history of NIDDM, asthma, hypertension, prostate CA, hyperlipidemia, overactive bladder presents to the emergency department complaining of erythematous/tenderness and hot sensation to the left mid anterior lower leg. Patient states while vacationing in [facility] on September 18, he [place] didn't realize they were deep spots in certain areas. Once he landed on a deep area, he tripped and fell, scraping his left lower leg onto rocks. 2 days later, patient noticed redness and tenderness. Patient denies fever, chills, headaches, dizziness, chest pain, shortness of breath, extremity numbness or tingling sensation, calf pains. Patient sore his infectious disease physician earlier this afternoon who margy a [place] around the perimeter of the erythematous. Approximately 3 hours later, the redness progress past the lines. PMD: Dr. Paola Roberts Timing/Duration: other (September 18, 2016) Associated Symptoms: reports: denies symptoms Past History - Past Medical History Allergies/Adverse Reactions: Allergies Allergy/AdvReac Type Severity Reaction Status Date / Time No Known Allergies Allergy Verified 09/26/16 20:23 Home Medications: Ambulatory Orders Albuterol Sulfate 0.5% [Ventolin 0.5% Nebulizing Soln. -] 1 neb IH PRN PRN 03/05 Albuterol Sulfate [Proair Respiclick] 90 mcg IH PRN PRN 03/05/16 Atorvastatin Ca [Lipitor] 20 mg PO DAILY 03/05/16 Beclomethasone Dipropionate [Qvar] 80 mcg IH DAILY 03/05/16 Cholecalciferol (Vitamin D3) [Vitamin D3] 1,000 unit PO DAILY 03/05/16 Glipizide Xl [Glucotrol Xl -] 5 mg PO DAILY 03/05/16 Losartan/Hydrochlorothiazide [Losartan-Hctz 100-25 mg Tab] 1 each PO DAILY 03/05 Metformin HCl [Metformin HCl ER] 500 mg PO BID 03/05/16 Multivitamin [Poly-Vitamin] 1 each PO DAILY 03/05/16 [place]-3S/Dha/Epa/Fish Oil [Fish Oil [place]-3 Softgel] 1 each PO DAILY 03/05/16 Sildenafil Citrate [Sildenafil] 20 mg PO DAILY 03/05/16 Tamsulosin HCl [Flomax] 0.8 mg PO DAILY 03/05/16 Vitamin B Complex [B Complex] 1 each PO DAILY 03/05/16 Mirabegron [Myrbetriq] 50 mg PO HS 05/30/16 Breo Ellipta 100-25 Mcg INH 06/28/16 Aspirin [ASA -] 81 mg PO DAILY #100 tab MDD 1 06/29/16 Clindamycin [Cleocin -] 300 mg PO Q6HPO #28 capsule 09/23/16 Cancer: Yes (Prostate CA.) COPD: Yes (?) Diabetes: Yes HTN: Yes Hypercholesterolemia: Yes - Surgical History Abdominal Surgery: No Appendectomy: No Cardiac Surgery: No - Immunization History Immunization Up to Date: Yes - Psycho/Social/Smoking Cessation Hx Anxiety: No Suicidal Ideation: No Smoking Status: No Smoking History: Never smoked Have you smoked in the past 12 months: No Number of Cigarettes Smoked Daily: 0 If you are a former smoker, when did you quit?: 40 Information on smoking cessation initiated: No Hx Alcohol Use: No Drug/Substance Use Hx: No Substance Use Type: None Review of Systems - Review of Systems Able to Perform ROS?: Yes Comments:: 09/26/16 20:56 CONSTITUTIONAL: Absent: fever, chills, diaphoresis, generalized weakness, malaise, loss of appetite HEENT: Absent: rhinorrhea, nasal congestion, throat pain, throat swelling, difficulty swallowing, mouth swelling, ear pain, eye pain, visual Changes CARDIOVASCULAR: Absent: chest pain, loss of consciousness, palpitations, irregular heart rate, peripheral edema RESPIRATORY: Absent: cough, shortness of breath, dyspnea with exertion, orthopnea, wheezing, stridor, hemoptysis GASTROINTESTINAL: Absent: abdominal pain, abdominal distension, nausea, vomiting, diarrhea, constipation, melena, hematochezia GENITOURINARY: Absent: dysuria, frequency, urgency, hesitancy, hematuria, flank pain, genital pain MUSCULOSKELETAL: Absent: myalgia, arthralgia, joint swelling SKIN: Absent: rash, itching, pallor HEMATOLOGIC/IMMUNOLOGIC: Absent: easy bleeding, easy bruising, lymphadenopathy, frequent infections ENDOCRINE: Absent: unexplained weight gain, unexplained weight loss, heat intolerance, cold intolerance NEUROLOGIC: Absent: headache, focal weakness or paresthesias, dizziness, unsteady gait, seizure, mental status changes, bladder or bowel incontinence PSYCHIATRIC: Absent: anxiety, depression, suicidal or homicidal ideation, hallucinations. LLE: pain to left ant mid lower leg Is the patient limited Moldovan proficient: No *Physical Exam - Vital Signs Last Vital Signs Temp Pulse Resp BP Pulse Ox 98.5 F 101 H 16 137/91 98 09/26/16 20:23 09/26/16 20:23 09/26/16 20:23 09/26/16 20:23 09/26/16 20:23 - Physical Exam Comments: 09/26/16 20:56 GENERAL: Well developed, well nourished. Awake and alert. No acute distress. HEENT: Normocephalic, atraumatic. PERRLA, EOMI. No conjunctival pallor. Sclera are non- icteric. Moist mucous membranes. Oropharynx is clear. NECK: Supple. Full ROM. No JVD. Carotid pulses 2+ and symmetric, without bruits. No thyromegaly. No lymphadenopathy. CARDIOVASCULAR: Regular rate and rhythm. No murmurs, rubs, or gallops. Distal pulses are 2+ and symmetric. PULMONARY: No evidence of respiratory distress. Lungs clear to auscultation bilaterally. No wheezing, rales or rhonchi. ABDOMINAL: Soft. Non-tender. Non-distended. No rebound or guarding. No organomegaly. Normoactive bowel sounds. MUSCULOSKELETAL Normal range of motion at all joints. No bony deformities or tenderness. No CVA tenderness. SKIN: Warm and dry. Normal capillary refill. No rashes. No jaundice. NEUROLOGICAL: Alert, awake, appropriate. Cranial nerves 2-12 intact. No deficits to light touch and temperature in face, upper extremities and lower extremities. No motor deficits in the in face, upper extremities and lower extremities. Normoreflexic in the upper and lower extremities. Normal speech. Toes are down- going bilaterally. Gait is normal without ataxia. PSYCHIATRIC: Cooperative. Good eye contact. Appropriate mood and affect. EXTREMITIES: No cyanosis. No clubbing. No edema. No calf tenderness. LLE: ant mid aspect: (2)~3cm vertical abrasion with surrounding erythematous/pain on palp/hot to the touch without lymphangitis ED Treatment Course - LABORATORY CBC & Chemistry Diagram: 09/26/16 21:16 09/26/16 21:00 *DC/Admit/Observation/Transfer Diagnosis at time of Disposition: Cellulitis Qualifiers: Site of cellulitis: extremity Site of cellulitis of extremity: lower extremity Laterality: left Qualified Code(s): L03.116 - Cellulitis of left lower limb - Discharge Dispostion Condition at time of disposition: Guarded Admit: Yes Progress Note - Progress Note Progress Note: 2201hrs: Called Dr. Nieves Roberts 2217hrs: Spoke to Dr. Hattie Zambrano/covering for Dr. Roberts, will admit 2226hrs: Called Dr. Paula Arias/ID , will consult
[2016-09-26] MEDS ORDERED: PIPERACILLIN/TAZOB 4.5 GM/100 ML PRE-DOCKED IVPB ONE (20:50)
[2016-09-26] MEDS ORDERED: CIPROFLOXACIN 400 MG/D5W 200 ML IVPB ONE (20:51)
[2016-09-26] MEDS ORDERED: PIPERACILLIN/TAZOB 4.5 GM 100 ML IVPB ONE (21:11)
--- NOTE | 2016-09-26 21:24 | PDOC ---
*Physical Exam - Vital Signs Last Vital Signs Temp Pulse Resp BP Pulse Ox 98.5 F 101 H 16 137/91 98 09/26/16 20:23 09/26/16 20:23 09/26/16 20:23 09/26/16 20:23 09/26/16 20:23 ED Treatment Course - LABORATORY CBC & Chemistry Diagram: 09/26/16 21:16 09/26/16 21:00 - Medications Given in the ED: ED Medications Discontinued Medications Generic Name Dose Route Start Last Admin Trade Name Freq PRN Reason Stop Dose Admin Piperacillin Sod/Tazobactam Sod 4.5 gm 09/26/16 20:50 09/26/16 21:16 Zosyn 4.5gm Ivpb (Pre-Docked) IVPB 09/26/16 20:51 4.5 gm ONCE ONE Administration Medical Decision Making - Medical Decision Making 09/26/16 21:24 agree with care from DOROTHY Polanco *DC/Admit/Observation/Transfer Diagnosis at time of Disposition: Cellulitis - Discharge Dispostion Condition at time of disposition: Guarded
[2016-09-26 21:27] LABS: BASOPHIL 1.3 % (0-2.0); EOSINOPHIL 4.9 % (0-4.5); MCH 28.3 pg (25.7-33.7); MEAN CELL VOLUME 88.5 fl (80-96); MEAN PLT VOLUME 6.6 fl (7.5-11.1); NEUTROPHILS 55.6 % (42.8-82.8); PLATELET COUNT 277 K/MM3 (134-434); RDW 13.7 % (11.9-15.9); WHITE BLOOD COUNT 7.1 K/mm3 (4.0-10.0)
[2016-09-26 21:43] LABS: ALBUMIN 4.3 g/dl (3.4-5.0); ALK PHOS 90 U/L (45-117); ANION GAP 9 (8-16); BILIRUBIN,TOTAL 0.4 mg/dL (0.2-1.0); CALCIUM 9.5 mg/dL (8.5-10.1); CO2 30 mmol/L (21-32); CREATININE 0.9 mg/dL (0.7-1.3); GLUCOSE,RANDOM 92 mg/dL (74-106); SGOT/AST 35 U/L (15-37); SGPT/ALT 58 U/L (12-78); TOT PROT 7.8 g/dl (6.4-8.2)
[2016-09-26] MEDS ORDERED: VANCOMYCIN 1,000 MG in DEXTROSE 5%-WATER - 250 ML IVPB SCH (22:00)
[2016-09-27] MEDS ORDERED: VANCOMYCIN 1 GRAM (PRE-DOCKED) 250 ML IVPB ONE (00:30)
[2016-09-27] MEDS: PIPERACILLIN/TAZOB 3.375 GM 50 ML IVPB SCH ×3 (04:36→17:00)
[2016-09-27] MEDS ORDERED: ALBUTEROL SO4 0.5 % INH SOLN 2.5 MG/0.5 ML VIAL.NEB. NEB PRN (07:45)
[2016-09-27] MEDS ORDERED: ACETAMINOPHEN 325 MG TABLET (FP) PO PRN (07:48)
--- NOTE | 2016-09-27 07:51 | HP ---
Admitting History and Physical - Primary Care Physician PCP: Nieves Marie - Past Medical History Cardiovascular: Yes: HTN Pulmonary: Yes: Asthma - Smoking History Smoking history: Never smoked Have you smoked in the past 12 months: No Aproximately how many cigarettes per day: 0 If you are a former smoker, when did you quit?: 40 - Alcohol/Substance Use Hx Alcohol Use: No <Radha Zambrano - Last Filed: 09/27/16 07:51> - Admission History of Present Illness: The patient is a 61-year-old man with a history of NIDDM, asthma, hypertension, prostate CA, hyperlipidemia, overactive bladder presented to the emergency department complaining of redness/tenderness and hot sensation to the left mid anterior lower leg. Patient states while vacationing in [facility] on September 18, [place] didn't realize they were deep spots in certain areas. Once he landed on a deep area, he tripped and fell, scraping his left lower leg onto rocks. 2 days later, patient noticed redness and tenderness. Patient denies fever, chills, headaches, dizziness, chest pain, shortness of breath, extremity numbness or tingling sensation, calf pains. Patient started on IV antibiotics for cellulitis. Case was discussed with ER physician. Patient seen and examined today. Chart reviewed. Comfortable. Denies chest pain or shortness of breath. No abdominal pain. Denies pain at the leg. Denies urinary/bowel troubles. No fever or chills. History Source: Patient Limitations to Obtaining History: No Limitations <Anu Zamarripa - Last Filed: 09/27/16 09:26> Home Medications <Radha Zambrano - Last Filed: 09/27/16 07:51> <Anu Zamarripa - Last Filed: 09/27/16 09:26> - Allergies Allergies/Adverse Reactions: Allergies Allergy/AdvReac Type Severity Reaction Status Date / Time No Known Allergies Allergy Verified 09/26/16 20:23 - Home Medications Home Medications: Ambulatory Orders Albuterol Sulfate 0.5% [Ventolin 0.5% Nebulizing Soln. -] 1 neb IH PRN PRN 03/05 Albuterol Sulfate [Proair Respiclick] 90 mcg IH PRN PRN 03/05/16 Atorvastatin Ca [Lipitor] 80 mg PO HS 03/05/16 Beclomethasone Dipropionate [Qvar] 80 mcg IH DAILY 03/05/16 Cholecalciferol (Vitamin D3) [Vitamin D3] 1,000 unit PO DAILY 03/05/16 Glipizide Xl [Glucotrol Xl -] 5 mg PO DAILY 03/05/16 Losartan/Hydrochlorothiazide [Losartan-Hctz 100-25 mg Tab] 1 each PO DAILY 03/05 Metformin HCl [Metformin HCl ER] 500 mg PO BID 03/05/16 Multivitamin [Poly-Vitamin] 1 each PO DAILY 03/05/16 [place]-3S/Dha/Epa/Fish Oil [Fish Oil [place]-3 Softgel] 1 each PO DAILY 03/05/16 Sildenafil Citrate [Sildenafil] 20 mg PO PRN 03/05/16 Tamsulosin HCl [Flomax] 0.8 mg PO HS 03/05/16 Vitamin B Complex [B Complex] 1 each PO DAILY 03/05/16 Mirabegron [Myrbetriq] 50 mg PO HS 05/30/16 Breo Ellipta 100-25 Mcg INH 06/28/16 Aspirin [ASA -] 81 mg PO DAILY #100 tab MDD 1 06/29/16 Clindamycin [Cleocin -] 300 mg PO Q6HPO #28 capsule 09/23/16 Review of Systems Unable to obtain ROS, reason: See HPI. <Anu Zamarripa - Last Filed: 09/27/16 09:26> Physical Examination Vital Signs: Vital Signs Temperature 97.8 F 09/27/16 06:40 Pulse Rate 66 09/27/16 06:40 Respiratory Rate 09/27/16 06:40 Blood Pressure 125/82 09/27/16 06:40 O2 Sat by Pulse Oximetry (%) 96 09/26/16 22:58 <Radha Zambrano - Last Filed: 09/27/16 07:51> Vital Signs: Vital Signs Temperature 97.8 F 09/27/16 06:40 Pulse Rate 66 09/27/16 06:40 Respiratory Rate 20 09/27/16 06:40 Blood Pressure 125/82 09/27/16 06:40 O2 Sat by Pulse Oximetry (%) 96 09/26/16 22:58 Constitutional: Yes: No Distress, Calm Eyes: Yes: Conjunctiva Clear HENT: Yes: WNL Neck: Yes: Supple Cardiovascular: Yes: Regular Rate and Rhythm Respiratory: Yes: CTA Bilaterally Gastrointestinal: Yes: Soft Extremities: Yes: Erythema (RLE) Edema: No Neurological: Yes: Alert Psychiatric: Yes: Alert <Anu Zamarripa - Last Filed: 09/27/16 09:26> Imaging - Results Chest X-ray: Report Reviewed <Anu Zamarripa - Last Filed: 09/27/16 09:26> Problem List - Problems (1) Cellulitis Code(s): L03.90 - CELLULITIS, UNSPECIFIED Qualifiers: Site of cellulitis: extremity Site of cellulitis of extremity: lower extremity Laterality: left Qualified Code(s): L03.116 - Cellulitis of left lower limb (2) HTN (hypertension) Code(s): I10 - ESSENTIAL (PRIMARY) HYPERTENSION (3) Diabetes mellitus Code(s): E11.9 - TYPE 2 DIABETES MELLITUS WITHOUT COMPLICATIONS <Anu Zamarripa - Last Filed: 09/27/16 09:26> Assessment/Plan - Continue antibiotics. - ID on case. - Tylenol for pain. - Monitor BP and blood sugars. - Medications reviewed. - DVT Prophylaxis. - Discussed with patient in detail. - Will follow. Documentation prepared by Anu Zamarripa, acting as a quality engineer medical device for Radha Zambrano MD. <Anu Zamarripa - Last Filed: 09/27/16 09:26>
[2016-09-27] MEDS ORDERED: ALBUTEROL SO4 6.7 GM HFA INHALER IH PRN (07:53)
[2016-09-27] MEDS: ASPIRIN 81 MG CHEWABLE TABLETS PO SCH (09:18)
[2016-09-27] MEDS: HYDROCHLOROTHIAZIDE 25 MG TABLET (FP) PO SCH (09:18)
[2016-09-27] MEDS: ENOXAPARIN NA (PORCINE) 40 MG/0.4 ML DISP.SYRIN SQ SCH (09:18)
[2016-09-27] MEDS: MULTIVITAMINS (DAILY MVI) TABLET (FP) PO SCH (09:18)
[2016-09-27] MEDS: VITAMIN B COMPLEX W/C COMBO TABLET (FP) PO SCH (09:18)
[2016-09-27] MEDS: LOSARTAN POTASSIUM 50 MG TABLET (FP) PO SCH (09:18)
[2016-09-27] MEDS ORDERED: PATIENT'S OWN MEDICATION (NON-FORMULARY) (Losartan/Hydrochlorothiazide [Losartan-Hctz 100- PO SCH (10:00)
[2016-09-27] MEDS ORDERED: PT OWN MED DRAWER 7, Y5N ONE (10:02)
[2016-09-27] MEDS: INSULIN SLIDING SCALE (NOVOLOG) 1 VIAL SQ SCH ×2 (11:50→16:37)
--- NOTE | 2016-09-27 15:02 | CONSULT ---
Consult Consult Specialty:: infectious diseases Reason for Consultation:: cellulitits of the left leg - History of Present Illness Chief Complaint: pain and swelling of the left leg History of Present Illness: 61-year-old man with a history of NIDDM, asthma, hypertension, prostate CA, hyperlipidemia, overactive bladder admitted for cellulitits of the left leg . Patient on vacation in [facility] [place] suffered injury to the leg. He was tatum;d not to worry since it was salt water and he applied some cream to the leg,which did not improve. patient came to me yesterday and when i evaluated his leg it was angry and red and i told him to get admitted and he was admitted under patient received abx as i had directed currently patient feels much better - History Source History Provided By: Patient Limitations to Obtaining History: No Limitations - Past Medical History Cardio/Vascular: Yes: HTN Pulmonary: Yes: Asthma - Alcohol/Substance Use Hx Alcohol Use: No - Smoking History Smoking history: Never smoked Have you smoked in the past 12 months: No Aproximately how many cigarettes per day: 0 If you are a former smoker, when did you quit?: 40 Home Medications - Allergies Allergies/Adverse Reactions: Allergies Allergy/AdvReac Type Severity Reaction Status Date / Time No Known Allergies Allergy Verified 09/26/16 20:23 - Home Medications Home Medications: Ambulatory Orders Albuterol Sulfate 0.5% [Ventolin 0.5% Nebulizing Soln. -] 1 neb IH PRN PRN 03/05 Albuterol Sulfate [Proair Respiclick] 90 mcg IH PRN PRN 03/05/16 Atorvastatin Ca [Lipitor] 80 mg PO HS 03/05/16 Beclomethasone Dipropionate [Qvar] 80 mcg IH DAILY 03/05/16 Cholecalciferol (Vitamin D3) [Vitamin D3] 1,000 unit PO DAILY 03/05/16 Glipizide Xl [Glucotrol Xl -] 5 mg PO DAILY 03/05/16 Losartan/Hydrochlorothiazide [Losartan-Hctz 100-25 mg Tab] 1 each PO DAILY 03/05 Metformin HCl [Metformin HCl ER] 500 mg PO BID 03/05/16 Multivitamin [Poly-Vitamin] 1 each PO DAILY 03/05/16 Otto-3S/Dha/Epa/Fish Oil [Fish Oil Otto-3 Softgel] 1 each PO DAILY 12/06/16 Sildenafil Citrate [Sildenafil] 20 mg PO PRN 03/05/16 Tamsulosin HCl [Flomax] 0.8 mg PO HS 03/05/16 Vitamin B Complex [B Complex] 1 each PO DAILY 03/05/16 Mirabegron [Myrbetriq] 50 mg PO HS 05/30/16 Breo Ellipta 100-25 Mcg INH 06/28/16 Aspirin [ASA -] 81 mg PO DAILY #100 tab MDD 1 06/29/16 Clindamycin [Cleocin -] 300 mg PO Q6HPO #28 capsule 09/23/16 Review of Systems - Review of Systems Constitutional: reports: No Symptoms Eyes: reports: No Symptoms HENT: reports: No Symptoms Neck: reports: No Symptoms Cardiovascular: reports: No Symptoms Respiratory: reports: No Symptoms Gastrointestinal: reports: No Symptoms Musculoskeletal: reports: Other Integumentary: reports: Erythema, Wound, Other Neurological: reports: No Symptoms Endocrine: reports: No Symptoms Hematology/Lymphatic: reports: No Symptoms Psychiatric: reports: No Symptoms Physical Exam Vital Signs: Vital Signs Temperature 98.0 F 09/27/16 14:32 Pulse Rate 74 09/27/16 14:32 Respiratory Rate 16 09/27/16 14:32 Blood Pressure 131/75 09/27/16 14:32 O2 Sat by Pulse Oximetry (%) 95 09/27/16 09:00 Constitutional: Yes: Well Nourished, No Distress, Calm Eyes: Yes: Conjunctiva Clear HENT: Yes: Atraumatic, Normocephalic Neck: Yes: Supple Cardiovascular: Yes: Regular Rate and Rhythm Respiratory: Yes: Regular, CTA Bilaterally Gastrointestinal: Yes: Normal Bowel Sounds, Soft Musculoskeletal: Yes: WNL Extremities: Yes: Other Integumentary: Yes: Erythema, Other (cellulitits of the left lower leg) Wound/Incision: Yes: Clean/Dry, Open to air, Other Neurological: Yes: Alert, Oriented Psychiatric: Yes: Alert, Oriented Assessment/Plan Problem List - Problems (1) Cellulitis Code(s): L03.90 - CELLULITIS, UNSPECIFIED Qualifiers: Site of cellulitis: extremity Site of cellulitis of extremity: lower extremity Laterality: left Qualified Code(s): L03.116 - Cellulitis of left lower limb (2) HTN (hypertension) Code(s): I10 - ESSENTIAL (PRIMARY) HYPERTENSION (3) Diabetes mellitus Code(s): E11.9 - TYPE 2 DIABETES MELLITUS WITHOUT COMPLICATIONS plan continue zosyn will add oral clinda await cx report rest as per primary team
[2016-09-27] MEDS: DOXYCYCLINE HYCLATE 100 MG CAPSULE PO SCH (17:00)
--- NOTE | 2016-09-27 17:12 | EKG ---
Test Reason : Blood Pressure : / mmHG Vent. Rate : 093 BPM Atrial Rate : 093 BPM P-R Int : 172 ms QRS Dur : 092 ms QT Int : 368 ms P-R-T Axes : 031 -03 019 degrees QTc Int : 457 ms NORMAL SINUS RHYTHM POSSIBLE LEFT ATRIAL ENLARGEMENT SEPTAL INFARCT (CITED ON OR BEFORE 28-JUN-2016) ABNORMAL ECG Confirmed by MD VESTA, BELLA ([id number]) on 09/27/2016 5:12:07 PM Referred By: Confirmed By:BELLA LEMONS MD
[2016-09-27] MEDS: MOMETASONE FUROATE 220 MCG/IH INHALER IH SCH (21:12)
[2016-09-27] MEDS: ATORVASTATIN CA 80 MG TABLET (FP) PO SCH (21:14)
[2016-09-27] MEDS: TAMSULOSIN HCL 0.4 MG CAP.ER.24H (FP) PO SCH (21:14)
[2016-09-27] MEDS: INSULIN DETEMIR 100 UNITS/ML MDV SQ SCH (21:14)
[2016-09-27] MEDS ORDERED: PATIENT'S OWN MEDICATION (NON-FORMULARY) (Mirabegron [Myrbetriq] 50 MG) PO SCH (22:00)
[2016-09-28] MEDS: PIPERACILLIN/TAZOB 3.375 GM 50 ML IVPB SCH ×3 (01:07→17:41)
[2016-09-28] MEDS: INSULIN SLIDING SCALE (NOVOLOG) 1 VIAL SQ SCH ×3 (06:18→17:42)
[2016-09-28 07:56] LABS: BASOPHIL 1.2 % (0-2.0); EOSINOPHIL 5.9 % (0-4.5); MCH 29.1 pg (25.7-33.7); MCHC 32.9 g/dl (32.0-35.9); MEAN CELL VOLUME 88.4 fl (80-96); MEAN PLT VOLUME 6.3 fl (7.5-11.1); NEUTROPHILS 53.8 % (42.8-82.8); PLATELET COUNT 254 K/MM3 (134-434); RDW 13.5 % (11.9-15.9)
[2016-09-28 08:20] LABS: ALBUMIN 3.6 g/dl (3.4-5.0); ANION GAP 10 (8-16); CALCIUM 8.9 mg/dL (8.5-10.1); CO2 28 mmol/L (21-32); GLUCOSE,RANDOM 124 mg/dL (74-106)
[2016-09-28 08:24] LABS: ALK PHOS 66 U/L (45-117); BILIRUBIN,TOTAL 0.4 mg/dL (0.2-1.0); CREATININE 0.9 mg/dL (0.7-1.3); SGOT/AST 21 U/L (15-37); SGPT/ALT 45 U/L (12-78); TOT PROT 6.4 g/dl (6.4-8.2)
[2016-09-28] MEDS ORDERED: PT OWN MED DRAWER 7, Y5N ONE ×3 (09:28→21:11)
[2016-09-28] MEDS: LOSARTAN POTASSIUM 50 MG TABLET (FP) PO SCH (10:18)
[2016-09-28] MEDS: ASPIRIN 81 MG CHEWABLE TABLETS PO SCH (10:18)
[2016-09-28] MEDS: HYDROCHLOROTHIAZIDE 25 MG TABLET (FP) PO SCH (10:18)
[2016-09-28] MEDS: ENOXAPARIN NA (PORCINE) 40 MG/0.4 ML DISP.SYRIN SQ SCH (10:18)
[2016-09-28] MEDS: DOXYCYCLINE HYCLATE 100 MG CAPSULE PO SCH ×2 (10:19→17:41)
[2016-09-28] MEDS: VITAMIN B COMPLEX W/C COMBO TABLET (FP) PO SCH (10:19)
[2016-09-28] MEDS: MULTIVITAMINS (DAILY MVI) TABLET (FP) PO SCH (10:19)
--- NOTE | 2016-09-28 10:57 | PN ---
Progress Note, Physician Chief Complaint: no complaints feels the wound to be pruritic no pain - Current Medication List Current Medications: Active Medications Acetaminophen (Tylenol -) 650 mg PO Q4H PRN PRN Reason: FEVER OR PAIN Albuterol Sulfate (Ventolin 0.5% -) 1 amp NEB Q4H PRN PRN Reason: ASTHMA Albuterol Sulfate (Ventolin Hfa Inhaler -) 2 puff IH Q6H PRN PRN Reason: ASTHMA Aspirin (Asa -) 81 mg PO DAILY [facility] Last Admin: 09/28/16 10:18 Dose: 81 mg Atorvastatin Calcium (Lipitor -) 80 mg PO HS [facility] Last Admin: 09/27/16 21:14 Dose: 80 mg Doxycycline Hyclate (Vibramycin -) 100 mg PO BID@1000,1800 [facility] Last Admin: 09/28/16 10:19 Dose: 100 mg Enoxaparin Sodium (Lovenox -) 40 mg SQ DAILY [facility] Last Admin: 09/28/16 10:18 Dose: 40 mg Hydrochlorothiazide (Hctz -) 25 mg PO DAILY [facility] Last Admin: 09/28/16 10:18 Dose: 25 mg Piperacillin Sod/Tazobactam Sod (Zosyn 3.375gm Ivpb (Pre-Docked)) 50 mls @ 100 mls/hr IVPB Q8H-IV [facility]AE PRN Reason: Protocol Last Admin: 09/28/16 10:20 Dose: 100 mls/hr Insulin Aspart (Novolog Vial Sliding Scale -) 1 vial SQ TIDAC [facility] PRN Reason: Protocol Last Admin: 09/28/16 06:18 Dose: Not Given Insulin Detemir (Levemir Vial) 5 units SQ HS [facility] Last Admin: 09/27/16 21:14 Dose: 5 units Losartan Potassium (Cozaar -) 100 mg PO DAILY [facility] Last Admin: 09/28/16 10:18 Dose: 100 mg Mometasone Furoate (Asmanex 220mcg -) 1 puff IH HS [facility] Last Admin: 09/27/16 21:12 Dose: Not Given Multivitamins (Total B With C -) 1 each PO DAILY [facility] Last Admin: 09/28/16 10:19 Dose: 1 each Multivitamins/Minerals/Vitamin C (Tab-A-Vit -) 1 tab PO DAILY [facility] Last Admin: 09/28/16 10:19 Dose: 1 tab Non-Formulary Medication (Mirabegron [Myrbetriq]) 50 mg PO HS [facility] Tamsulosin HCl (Flomax -) 0.8 mg PO HS [facility] Last Admin: 09/27/16 21:14 Dose: 0.8 mg - Objective Vital Signs: Vital Signs Temperature 98.2 F 09/28/16 06:00 Pulse Rate 74 09/28/16 06:00 Respiratory Rate 20 09/28/16 06:00 Blood Pressure 132/87 09/28/16 06:00 O2 Sat by Pulse Oximetry (%) 98 09/27/16 21:00 Constitutional: Yes: No Distress, Calm Cardiovascular: Yes: Regular Rate and Rhythm Respiratory: Yes: CTA Bilaterally Gastrointestinal: Yes: Normal Bowel Sounds, Soft. No: Abdomen, Obese, Distention Extremities: Yes: Other (left melara-- markedly decreased erythema , not tender, not warm, wound is dry, no drainage) Edema: No Neurological: Yes: Alert, Oriented Labs: CBC, BMP 09/28/16 06:40 09/28/16 06:40 Problem List - Problems (1) Cellulitis Code(s): L03.90 - CELLULITIS, UNSPECIFIED Qualifiers: Site of cellulitis: extremity Site of cellulitis of extremity: lower extremity Laterality: left Qualified Code(s): L03.116 - Cellulitis of left lower limb (2) Diabetes mellitus Code(s): E11.9 - TYPE 2 DIABETES MELLITUS WITHOUT COMPLICATIONS (3) HTN (hypertension) Code(s): I10 - ESSENTIAL (PRIMARY) HYPERTENSION Assessment/Plan PLAN iv antibiotics diabetic control A1C 6.6 continue with meds wound care blood cultures negative dc plan on po antibiotics if ok with ID
[2016-09-28 13:38] LABS: CHOLESTEROL 109 mg/dL (50-200)
[2016-09-28] MEDS: LACTOBACILLUS ACIDOPHILUS 1 EACH TAB (FP) PO SCH (14:23)
[2016-09-28 15:21] LABS: LDL CHOLESTEROL (ONLY SJRH) 37 mg/dL (5-100)
--- NOTE | 2016-09-28 17:43 | PN ---
Progress Note, Physician History of Present Illness: doing well dressing removed wound looked at cellulitis much better - Current Medication List Current Medications: Active Medications Acetaminophen (Tylenol -) 650 mg PO Q4H PRN PRN Reason: FEVER OR PAIN Albuterol Sulfate (Ventolin 0.5% -) 1 amp NEB Q4H PRN PRN Reason: ASTHMA Albuterol Sulfate (Ventolin Hfa Inhaler -) 2 puff IH Q6H PRN PRN Reason: ASTHMA Aspirin (Asa -) 81 mg PO DAILY [facility] Last Admin: 09/28/16 10:18 Dose: 81 mg Atorvastatin Calcium (Lipitor -) 80 mg PO HS [facility] Last Admin: 09/27/16 21:14 Dose: 80 mg Doxycycline Hyclate (Vibramycin -) 100 mg PO BID@1000,1800 [facility] Last Admin: 09/28/16 17:41 Dose: 100 mg Enoxaparin Sodium (Lovenox -) 40 mg SQ DAILY [facility] Last Admin: 09/28/16 10:18 Dose: 40 mg Hydrochlorothiazide (Hctz -) 25 mg PO DAILY [facility] Last Admin: 09/28/16 10:18 Dose: 25 mg Piperacillin Sod/Tazobactam Sod (Zosyn 3.375gm Ivpb (Pre-Docked)) 50 mls @ 100 mls/hr IVPB Q8H-IV SHAE PRN Reason: Protocol Last Admin: 09/28/16 17:41 Dose: 100 mls/hr Insulin Aspart (Novolog Vial Sliding Scale -) 1 vial SQ TIDAC [facility] PRN Reason: Protocol Last Admin: 09/28/16 17:42 Dose: Not Given Insulin Detemir (Levemir Vial) 5 units SQ HS [facility] Last Admin: 09/27/16 21:14 Dose: 5 units Lactobacillus Acidophilus (Bacid -) 1 tab PO DAILY [facility] Last Admin: 09/28/16 14:23 Dose: 1 tab Losartan Potassium (Cozaar -) 100 mg PO DAILY [facility] Last Admin: 09/28/16 10:18 Dose: 100 mg Mometasone Furoate (Asmanex 220mcg -) 1 puff IH HS [facility] Last Admin: 09/27/16 21:12 Dose: Not Given Multivitamins (Total B With C -) 1 each PO DAILY [facility] Last Admin: 09/28/16 10:19 Dose: 1 each Multivitamins/Minerals/Vitamin C (Tab-A-Vit -) 1 tab PO DAILY [facility] Last Admin: 09/28/16 10:19 Dose: 1 tab Non-Formulary Medication (Mirabegron [Myrbetriq]) 50 mg PO [facility] Tamsulosin HCl (Flomax -) 0.8 mg PO HS [facility] Last Admin: 09/27/16 21:14 Dose: 0.8 mg - Objective Vital Signs: Vital Signs Temperature 98.6 F 09/28/16 17:34 Pulse Rate 67 09/28/16 17:34 Respiratory Rate 20 09/28/16 17:34 Blood Pressure 126/82 09/28/16 17:34 O2 Sat by Pulse Oximetry (%) 98 09/28/16 10:00 Constitutional: Yes: No Distress, Calm Cardiovascular: Yes: Regular Rate and Rhythm Respiratory: Yes: Regular, CTA Bilaterally Gastrointestinal: Yes: Normal Bowel Sounds, Soft Musculoskeletal: Yes: Other Extremities: Yes: Other (celuulitis resolving) Wound/Incision: Yes: Clean/Dry Neurological: Yes: Alert, Oriented Psychiatric: Yes: Alert Labs: CBC, BMP 09/28/16 06:40 09/28/16 06:40 Assessment/Plan Problem List - Problems (1) Cellulitis Code(s): L03.90 - CELLULITIS, UNSPECIFIED Qualifiers: Site of cellulitis: extremity Site of cellulitis of extremity: lower extremity Laterality: left Qualified Code(s): L03.116 - Cellulitis of left lower limb (2) HTN (hypertension) Code(s): I10 - ESSENTIAL (PRIMARY) HYPERTENSION (3) Diabetes mellitus Code(s): E11.9 - TYPE 2 DIABETES MELLITUS WITHOUT COMPLICATIONS plan continue current mgmt will see tomorrow and decide further mmt
[2016-09-28] MEDS: TAMSULOSIN HCL 0.4 MG CAP.ER.24H (FP) PO SCH (21:13)
[2016-09-28] MEDS: ATORVASTATIN CA 80 MG TABLET (FP) PO SCH (21:13)
[2016-09-28] MEDS: INSULIN DETEMIR 100 UNITS/ML MDV SQ SCH (21:14)
[2016-09-28] MEDS: MOMETASONE FUROATE 220 MCG/IH INHALER IH SCH (21:15)
[2016-09-29] MEDS: PIPERACILLIN/TAZOB 3.375 GM 50 ML IVPB SCH ×3 (03:11→17:02)
[2016-09-29] MEDS: INSULIN SLIDING SCALE (NOVOLOG) 1 VIAL SQ SCH ×3 (06:20→16:38)
[2016-09-29] MEDS ORDERED: PT OWN MED DRAWER 7, Y5N ONE ×4 (08:44→22:01)
[2016-09-29] MEDS: ENOXAPARIN NA (PORCINE) 40 MG/0.4 ML DISP.SYRIN SQ SCH (09:10)
[2016-09-29] MEDS: ASPIRIN 81 MG CHEWABLE TABLETS PO SCH (09:10)
[2016-09-29] MEDS: VITAMIN B COMPLEX W/C COMBO TABLET (FP) PO SCH (09:10)
[2016-09-29] MEDS: MULTIVITAMINS (DAILY MVI) TABLET (FP) PO SCH (09:10)
[2016-09-29] MEDS: DOXYCYCLINE HYCLATE 100 MG CAPSULE PO SCH ×2 (09:10→17:02)
[2016-09-29] MEDS: LACTOBACILLUS ACIDOPHILUS 1 EACH TAB (FP) PO SCH (09:10)
[2016-09-29] MEDS: HYDROCHLOROTHIAZIDE 25 MG TABLET (FP) PO SCH (09:10)
[2016-09-29] MEDS: LOSARTAN POTASSIUM 50 MG TABLET (FP) PO SCH (09:10)
--- NOTE | 2016-09-29 09:10 | PN ---
Progress Note, Physician Chief Complaint: no distress - Current Medication List Current Medications: Active Medications Acetaminophen (Tylenol -) 650 mg PO Q4H PRN PRN Reason: FEVER OR PAIN Albuterol Sulfate (Ventolin 0.5% -) 1 amp NEB Q4H PRN PRN Reason: ASTHMA Albuterol Sulfate (Ventolin Hfa Inhaler -) 2 puff IH Q6H PRN PRN Reason: ASTHMA Aspirin (Asa -) 81 mg PO DAILY [facility] Last Admin: 09/28/16 10:18 Dose: 81 mg Atorvastatin Calcium (Lipitor -) 80 mg PO HS [facility] Last Admin: 09/28/16 21:13 Dose: 80 mg Doxycycline Hyclate (Vibramycin -) 100 mg PO BID@1000,1800 [facility] Last Admin: 09/28/16 17:41 Dose: 100 mg Enoxaparin Sodium (Lovenox -) 40 mg SQ DAILY [facility] Last Admin: 09/28/16 10:18 Dose: 40 mg Hydrochlorothiazide (Hctz -) 25 mg PO DAILY [facility] Last Admin: 09/28/16 10:18 Dose: 25 mg Piperacillin Sod/Tazobactam Sod (Zosyn 3.375gm Ivpb (Pre-Docked)) 50 mls @ 100 mls/hr IVPB Q8H-IV [facility] PRN Reason: Protocol Last Admin: 09/29/16 03:11 Dose: 100 mls/hr Insulin Aspart (Novolog Vial Sliding Scale -) 1 vial SQ TIDAC [facility] PRN Reason: Protocol Last Admin: 09/29/16 06:20 Dose: Not Given Insulin Detemir (Levemir Vial) 5 units SQ HS [facility] Last Admin: 09/28/16 21:14 Dose: 5 units Lactobacillus Acidophilus (Bacid -) 1 tab PO DAILY [facility] Last Admin: 09/28/16 14:23 Dose: 1 tab Losartan Potassium (Cozaar -) 100 mg PO DAILY [facility] Last Admin: 09/28/16 10:18 Dose: 100 mg Mometasone Furoate (Asmanex 220mcg -) 1 puff IH HS [facility] Last Admin: 09/28/16 21:15 Dose: Not Given Multivitamins (Total B With C -) 1 each PO DAILY [facility] Last Admin: 09/28/16 10:19 Dose: 1 each Multivitamins/Minerals/Vitamin C (Tab-A-Vit -) 1 tab PO DAILY [facility] Last Admin: 09/28/16 10:19 Dose: 1 tab Non-Formulary Medication (Mirabegron [Myrbetriq]) 50 mg PO [facility] Tamsulosin HCl (Flomax -) 0.8 mg PO HS [facility] Last Admin: 09/28/16 21:13 Dose: 0.8 mg - Objective Vital Signs: Vital Signs Temperature 97.8 F 09/29/16 05:48 Pulse Rate 65 09/29/16 05:48 Respiratory Rate 18 09/29/16 05:48 Blood Pressure 130/81 09/29/16 05:48 O2 Sat by Pulse Oximetry (%) 97 09/28/16 21:00 Constitutional: Yes: No Distress, Calm Cardiovascular: Yes: Regular Rate and Rhythm Respiratory: Yes: CTA Bilaterally Gastrointestinal: Yes: Normal Bowel Sounds, Soft. No: Distention, Tenderness Extremities: Yes: Other (left mealra wound-- healing well, decreased erythema) Edema: No Labs: CBC, BMP 09/28/16 06:40 09/28/16 06:40 Problem List - Problems (1) Cellulitis Code(s): L03.90 - CELLULITIS, UNSPECIFIED Qualifiers: Site of cellulitis: extremity Site of cellulitis of extremity: lower extremity Laterality: left Qualified Code(s): L03.116 - Cellulitis of left lower limb (2) Diabetes mellitus Code(s): E11.9 - TYPE 2 DIABETES MELLITUS WITHOUT COMPLICATIONS (3) HTN (hypertension) Code(s): I10 - ESSENTIAL (PRIMARY) HYPERTENSION Assessment/Plan PLAN iv antibiotics till Friday per ID diabetic control A1C 6.6 continue with meds wound care blood cultures negative dc plan on po antibiotics if ok with ID on Friday
--- NOTE | 2016-09-29 17:19 | PN ---
Progress Note, Physician History of Present Illness: improving no isues wound looks good - Current Medication List Current Medications: Active Medications Acetaminophen (Tylenol -) 650 mg PO Q4H PRN PRN Reason: FEVER OR PAIN Albuterol Sulfate (Ventolin 0.5% -) 1 amp NEB Q4H PRN PRN Reason: ASTHMA Albuterol Sulfate (Ventolin Hfa Inhaler -) 2 puff IH Q6H PRN PRN Reason: ASTHMA Aspirin (Asa -) 81 mg PO DAILY [facility] Last Admin: 09/29/16 09:10 Dose: 81 mg Atorvastatin Calcium (Lipitor -) 80 mg PO HS [facility] Last Admin: 09/28/16 21:13 Dose: 80 mg Doxycycline Hyclate (Vibramycin -) 100 mg PO BID@1000,1800 [facility] Last Admin: 09/29/16 17:02 Dose: 100 mg Enoxaparin Sodium (Lovenox -) 40 mg SQ DAILY [facility] Last Admin: 09/29/16 09:10 Dose: 40 mg Hydrochlorothiazide (Hctz -) 25 mg PO DAILY [facility] Last Admin: 09/29/16 09:10 Dose: 25 mg Piperacillin Sod/Tazobactam Sod (Zosyn 3.375gm Ivpb (Pre-Docked)) 50 mls @ 100 mls/hr IVPB Q8H-IV [facility] PRN Reason: Protocol Last Admin: 09/29/16 17:02 Dose: 100 mls/hr Insulin Aspart (Novolog Vial Sliding Scale -) 1 vial SQ TIDAC [facility] PRN Reason: Protocol Last Admin: 09/29/16 16:38 Dose: Not Given Insulin Detemir (Levemir Vial) 5 units SQ HS [facility] Last Admin: 09/28/16 21:14 Dose: 5 units Lactobacillus Acidophilus (Bacid -) 1 tab PO DAILY [facility] Last Admin: 09/29/16 09:10 Dose: 1 tab Losartan Potassium (Cozaar -) 100 mg PO DAILY [facility] Last Admin: 09/29/16 09:10 Dose: 100 mg Mometasone Furoate (Asmanex 220mcg -) 1 puff IH HS [facility] Last Admin: 09/28/16 21:15 Dose: Not Given Multivitamins (Total B With C -) 1 each PO DAILY [facility] Last Admin: 09/29/16 09:10 Dose: 1 each Multivitamins/Minerals/Vitamin C (Tab-A-Vit -) 1 tab PO DAILY [facility] Last Admin: 09/29/16 09:10 Dose: 1 tab Non-Formulary Medication (Mirabegron [Myrbetriq]) 50 mg PO [facility] Tamsulosin HCl (Flomax -) 0.8 mg PO HS [facility] Last Admin: 09/28/16 21:13 Dose: 0.8 mg - Objective Vital Signs: Vital Signs Temperature 98.2 F 09/29/16 17:16 Pulse Rate 67 09/29/16 17:16 Respiratory Rate 20 09/29/16 17:16 Blood Pressure 133/105 09/29/16 17:16 O2 Sat by Pulse Oximetry (%) 97 09/29/16 09:00 Constitutional: Yes: No Distress, Calm Cardiovascular: Yes: Regular Rate and Rhythm Respiratory: Yes: Regular, CTA Bilaterally Gastrointestinal: Yes: Normal Bowel Sounds, Soft Musculoskeletal: Yes: Other Extremities: Yes: Erythema (minimal), Other Wound/Incision: Yes: Clean/Dry Neurological: Yes: Alert, Oriented Psychiatric: Yes: Alert, Oriented Labs: CBC, BMP 09/28/16 06:40 09/28/16 06:40 Assessment/Plan Problem List - Problems (1) Cellulitis Code(s): L03.90 - CELLULITIS, UNSPECIFIED Qualifiers: Site of cellulitis: extremity Site of cellulitis of extremity: lower extremity Laterality: left Qualified Code(s): L03.116 - Cellulitis of left lower limb (2) HTN (hypertension) Code(s): I10 - ESSENTIAL (PRIMARY) HYPERTENSION (3) Diabetes mellitus Code(s): E11.9 - TYPE 2 DIABETES MELLITUS WITHOUT COMPLICATIONS plan continue current abx will be able to switch to oral tomorrow
[2016-09-29] MEDS: INSULIN DETEMIR 100 UNITS/ML MDV SQ SCH (21:55)
[2016-09-29] MEDS: TAMSULOSIN HCL 0.4 MG CAP.ER.24H (FP) PO SCH (21:55)
[2016-09-29] MEDS: ATORVASTATIN CA 80 MG TABLET (FP) PO SCH (21:55)
[2016-09-29] MEDS: MOMETASONE FUROATE 220 MCG/IH INHALER IH SCH (21:56)
[2016-09-30] MEDS: PIPERACILLIN/TAZOB 3.375 GM 50 ML IVPB SCH ×2 (01:16→09:49)
[2016-09-30] MEDS: INSULIN SLIDING SCALE (NOVOLOG) 1 VIAL SQ SCH ×2 (06:17→12:09)
--- NOTE | 2016-09-30 09:30 | DS ---
Physical Examination Vital Signs: Vital Signs Temperature 98.1 F 09/30/16 05:49 Pulse Rate 79 09/30/16 05:49 Respiratory Rate 18 09/30/16 05:49 Blood Pressure 133/84 09/30/16 05:49 O2 Sat by Pulse Oximetry (%) 97 09/29/16 20:11 Findings/Remarks: feels well no complains denies pain. mild itichenss + Constitutional: Yes: No Distress Eyes: Yes: Conjunctiva Clear Neck: Yes: Supple Cardiovascular: Yes: Regular Rate and Rhythm Respiratory: Yes: CTA Bilaterally Gastrointestinal: Yes: Soft Edema: No Wound/Incision: Yes: Clean/Dry (much better) Neurological: Yes: Alert Labs: CBC, BMP 09/28/16 06:40 09/28/16 06:40 Discharge Summary Reason For Visit: CELLULITIS Current Active Problems Cellulitis (Acute) Diabetes mellitus (Acute) HTN (hypertension) (Acute) Hospital Course: admitted for left lower extremity wound treated with broad spectrum abx. i/d followed w/c - enterobacron [place] now stable to d/c on po abx-augmentin x 5 days-- discussed with i/d meds reconciled discussed with nursing staff. pt in agreement not ready to go back to work yet. f/u in office later this week wound care directions given. Condition: Guarded - Home Medications Comprehensive Discharge Medication List: Ambulatory Orders Albuterol Sulfate 0.5% [Ventolin 0.5% Nebulizing Soln. -] 1 neb IH PRN PRN 03/05 Albuterol Sulfate [Proair Respiclick] 90 mcg IH PRN PRN 03/05/16 Atorvastatin Ca [Lipitor] 80 mg PO HS 03/05/16 Cholecalciferol (Vitamin D3) [Vitamin D3] 1,000 unit PO DAILY 03/05/16 Glipizide Xl [Glucotrol Xl -] 5 mg PO DAILY 03/05/16 Losartan/Hydrochlorothiazide [Losartan-Hctz 100-25 mg Tab] 1 each PO DAILY 03/05 Metformin HCl [Metformin HCl ER] 500 mg PO BID 03/05/16 Multivitamin [Poly-Vitamin] 1 each PO DAILY 03/05/16 Crawford-3S/Dha/Epa/Fish Oil [Fish Oil Crawford-3 Softgel] 1 each PO DAILY 03/05/16 Sildenafil Citrate [Sildenafil] 20 mg PO PRN 03/05/16 Tamsulosin HCl [Flomax] 0.8 mg PO HS 03/05/16 Mirabegron [Myrbetriq] 50 mg PO HS 05/30/16 Breo Ellipta 100-25 Mcg INH 06/28/16 Aspirin [ASA -] 81 mg PO DAILY #100 tab MDD 1 06/29/16 Acetaminophen [Tylenol .Regular Strength -] 650 mg PO Q4H PRN #0 tablet Lactobacillus Acidophilus [Bacid -] 1 tab PO DAILY #15 tab 09/30/16 augmentin bid x5 days
[2016-09-30] MEDS: HYDROCHLOROTHIAZIDE 25 MG TABLET (FP) PO SCH (09:48)
[2016-09-30] MEDS: MULTIVITAMINS (DAILY MVI) TABLET (FP) PO SCH (09:48)
[2016-09-30] MEDS: LACTOBACILLUS ACIDOPHILUS 1 EACH TAB (FP) PO SCH (09:48)
[2016-09-30] MEDS: ASPIRIN 81 MG CHEWABLE TABLETS PO SCH (09:48)
[2016-09-30] MEDS: LOSARTAN POTASSIUM 50 MG TABLET (FP) PO SCH (09:49)
[2016-09-30] MEDS: VITAMIN B COMPLEX W/C COMBO TABLET (FP) PO SCH (09:49)
[2016-09-30] MEDS: DOXYCYCLINE HYCLATE 100 MG CAPSULE PO SCH (09:50)
[2016-09-30] MEDS: ENOXAPARIN NA (PORCINE) 40 MG/0.4 ML DISP.SYRIN SQ SCH (09:50)
[2016-09-30] MEDS ORDERED: PT OWN MED DRAWER 7, Y5N ONE (10:13)
[2016-09-30 10:53] VITALS: BP 148/78; PULSE 86; TEMP 97.9
--- NOTE | 2016-09-30 13:19 | PN ---
Progress Note, Physician History of Present Illness: doing well dressing removed wound looked at cellulitis nearly resolved - Current Medication List Current Medications: Active Medications Acetaminophen (Tylenol -) 650 mg PO Q4H PRN PRN Reason: FEVER OR PAIN Albuterol Sulfate (Ventolin 0.5% -) 1 amp NEB Q4H PRN PRN Reason: ASTHMA Albuterol Sulfate (Ventolin Hfa Inhaler -) 2 puff IH Q6H PRN PRN Reason: ASTHMA Aspirin (Asa -) 81 mg PO DAILY [facility] Last Admin: 09/30/16 09:48 Dose: 81 mg Atorvastatin Calcium (Lipitor -) 80 mg PO HS [facility] Last Admin: 09/29/16 21:55 Dose: 80 mg Doxycycline Hyclate (Vibramycin -) 100 mg PO BID@1000,1800 [facility] Last Admin: 09/30/16 09:50 Dose: 100 mg Enoxaparin Sodium (Lovenox -) 40 mg SQ DAILY [facility] Last Admin: 09/30/16 09:50 Dose: 40 mg Hydrochlorothiazide (Hctz -) 25 mg PO DAILY [facility] Last Admin: 09/30/16 09:48 Dose: 25 mg Piperacillin Sod/Tazobactam Sod (Zosyn 3.375gm Ivpb (Pre-Docked)) 50 mls @ 100 mls/hr IVPB Q8H-IV [facility] PRN Reason: Protocol Last Admin: 09/30/16 09:49 Dose: 100 mls/hr Insulin Aspart (Novolog Vial Sliding Scale -) 1 vial SQ TIDAC [facility] PRN Reason: Protocol Last Admin: 09/30/16 12:09 Dose: Not Given Insulin Detemir (Levemir Vial) 5 units SQ HS [facility] Last Admin: 09/29/16 21:55 Dose: 5 units Lactobacillus Acidophilus (Bacid -) 1 tab PO DAILY [facility] Last Admin: 09/30/16 09:48 Dose: 1 tab Losartan Potassium (Cozaar -) 100 mg PO DAILY [facility] Last Admin: 09/30/16 09:49 Dose: 100 mg Mometasone Furoate (Asmanex 220mcg -) 1 puff IH HS [facility] Last Admin: 09/29/16 21:56 Dose: Not Given Multivitamins (Total B With C -) 1 each PO DAILY [facility] Last Admin: 09/30/16 09:49 Dose: 1 each Multivitamins/Minerals/Vitamin C (Tab-A-Vit -) 1 tab PO DAILY [facility] Last Admin: 09/30/16 09:48 Dose: 1 tab Non-Formulary Medication (Mirabegron [Myrbetriq]) 50 mg PO [facility] Tamsulosin HCl (Flomax -) 0.8 mg PO HS [facility] Last Admin: 09/29/16 21:55 Dose: 0.8 mg - Objective Vital Signs: Vital Signs Temperature 97.9 F 09/30/16 10:00 Pulse Rate 86 09/30/16 10:00 Respiratory Rate 18 09/30/16 10:00 Blood Pressure 148/78 09/30/16 10:00 O2 Sat by Pulse Oximetry (%) 97 09/30/16 09:00 Constitutional: Yes: No Distress, Calm Cardiovascular: Yes: Regular Rate and Rhythm Respiratory: Yes: Regular, CTA Bilaterally Gastrointestinal: Yes: Normal Bowel Sounds, Soft Musculoskeletal: Yes: Other Extremities: Yes: Other (cellulitits resolving) Wound/Incision: Yes: Clean/Dry Neurological: Yes: Alert, Oriented Psychiatric: Yes: Alert, Oriented Labs: CBC, BMP 09/28/16 06:40 09/28/16 06:40 Assessment/Plan Problem List - Problems (1) Cellulitis Code(s): L03.90 - CELLULITIS, UNSPECIFIED Qualifiers: Site of cellulitis: extremity Site of cellulitis of extremity: lower extremity Laterality: left Qualified Code(s): L03.116 - Cellulitis of left lower limb (2) HTN (hypertension) Code(s): I10 - ESSENTIAL (PRIMARY) HYPERTENSION (3) Diabetes mellitus Code(s): E11.9 - TYPE 2 DIABETES MELLITUS WITHOUT COMPLICATIONS plan oral abx augmentin for couple of days wound care
== END 2016-09-30 14:00 | disposition home or self-care (01) | DRG 603 ==
LOC: JER 20:09 → J4S 22:21 → UNDOADMIN 22:58
PROVIDERS: ADMIT Internal Medicine; ATTEND Internal Medicine
DX: L03.116 Cellulitis of left lower limb (principal); I10 Essential (primary) hypertension; E11.9 Type 2 diabetes mellitus without complications; E78.5 Hyperlipidemia, unspecified; Z85.46 Personal history of malignant neoplasm of prostate
CPT/HCPCS: 36415; 71020-TC; 80053; 80061; 83036; 83721; 85025; 85651; 87040; 87070; 87186; 87205; 93005; 93010; 99284-25

== ENCOUNTER 2018-01-06 15:52 | Emergency (ER) | payer OTHER ==
[2018-01-06] MEDS ORDERED: KETOROLAC TROMETHAMINE 30 MG/1 ML VIAL IM ONE (16:08)
--- NOTE | 2018-01-06 16:08 | PDOC ---
Rapid Medical Evaluation Time Seen by Provider: 01/06/18 16:06 Medical Evaluation: Allergies Allergy/AdvReac Type Severity Reaction Status Date / Time No Known Allergies Allergy Verified 09/26/16 20:23 01/06/18 16:07 The patient presents with a chief complaint of: fall, back injury I have performed a brief in-person evaluation of this patient. Pertinent physical exam findings: vss, I have ordered the following: toradol, xray The patient will proceed to the ED for further evaluation.
[2018-01-06 16:11] VITALS: BP 143/89; PULSE 76; TEMP 98.8; BMI 29.9
[2018-01-06] MEDS ORDERED: KETOROLAC TROMETHAMINE 30 MG/1 ML VIAL ONE (17:23)
--- NOTE | 2018-01-06 17:57 | PDOC ---
History of Present Illness - General Chief Complaint: Back Pain Stated Complaint: FELL/BACK PAIN Time Seen by Provider: 01/06/18 16:06 - History of Present Illness Initial Comments: 62-year-old male with a past medical history significant for diabetes dyslipidemia and hypertension presents for evaluation of lower back pain and neck pain and left wrist pain after a fall 2-1/2 days ago. All pain in all areas is described as achy exacerbated with activity and relieved with rest without radiation. 01/06/18 17:53 Past History - Past Medical History Allergies/Adverse Reactions: Allergies Allergy/AdvReac Type Severity Reaction Status Date / Time No Known Allergies Allergy Verified 09/26/16 20:23 Home Medications: Ambulatory Orders Albuterol Sulfate 0.5% [Ventolin 0.5% Nebulizing Soln. -] 1 neb IH PRN PRN 03/05 Atorvastatin Ca [Lipitor] 80 mg PO HS 03/05/16 Glipizide Xl [Glucotrol Xl -] 5 mg PO DAILY 03/05/16 Losartan/Hydrochlorothiazide [Losartan-Hctz 100-25 mg Tab] 1 each PO DAILY 03/05 Multivitamin [Poly-Vitamin] 1 each PO DAILY 03/05/16 Tamsulosin HCl [Flomax] 0.8 mg PO HS 03/05/16 Mirabegron [Myrbetriq] 50 mg PO HS 05/30/16 Aspirin [ASA -] 81 mg PO DAILY #100 tab MDD 1 06/29/16 Acetaminophen [Tylenol .Regular Strength -] 650 mg PO Q4H PRN #0 tablet Amlodipine Besylate [Norvasc -] 5 mg PO DAILY #30 tablet 09/30/16 Metformin HCl [Glucophage] 1,000 mg PO BID #60 tablet 09/30/16 Beclomethasone Dipropionate [Qvar] 8.7 gm IH DAILY 01/06/18 Cyclobenzaprine HCl [Flexeril 10 mg] 10 mg PO HS PRN #10 tablet 01/06/18 Asthma: Yes Cancer: Yes (Prostate CA.) COPD: No Diabetes: Yes HTN: Yes Hypercholesterolemia: Yes - Surgical History Abdominal Surgery: No Appendectomy: No Cardiac Surgery: No - Immunization History Immunization Up to Date: Yes - Suicide/Smoking/Psychosocial Hx Smoking Status: No Smoking History: Never smoked Have you smoked in the past 12 months: No Number of Cigarettes Smoked Daily: 0 If you are a former smoker, when did you quit?: 40 Information on smoking cessation initiated: No Hx Alcohol Use: Yes Drug/Substance Use Hx: No Substance Use Type: Alcohol Hx Substance Use Treatment: No Review of Systems - Review of Systems Musculoskeletal: Yes: See HPI, Back Pain, Joint Pain, Neck Pain All Other Systems: Reviewed and Negative *Physical Exam - Vital Signs Last Vital Signs Temp Pulse Resp BP Pulse Ox 98.8 F 76 17 143/89 97 01/06/18 16:07 01/06/18 16:07 01/06/18 16:07 01/06/18 16:07 01/06/18 16:07 - Physical Exam Comments: HEAD: NC/AT EYES: Conjuntiva clear Ears: Canals and TM's normal NOSE: No d/c THROAT: Moist mucous membrances, oral pharanx clear, uvula midline NECK: Supple without adenopathy CARDIAC: S1 S2 LUNGS: CTA Full and Equal breath sounds ABDOMEN: Soft NT ND MS: Full ROM in all joints without edema NEUROLOGIC: No gross sensory or motor deficits, NVID SKIN: Normal color and temperature no lesions or rashes Lumbar spine skin color and temperature are normal range of motion is full slightly decreased. There is left-sided paralumbar musculature spasm and tenderness no midline tenderness. 5 out of 5 strength in bilateral lower extremities without gross sensorimotor deficits negative straight leg raise test bilaterally. Cervical spine skin color and temperature are normal range of motion is slightly decreased secondary to stiffness left-sided paracervical musculature spasm and trapezium spasm. 5 out of 5 strength in bilateral upper extremities without gross sensorimotor deficits. Negative Spurling maneuver. He is neurovascularly intact. Left first skin color and temperature are normal range of motion is full and supination pronation flexed extension ulnar and radial deviation. Is mild tenderness about the carpus neurovascularly intact 01/06/18 17:53 ED Treatment Course - Medications Given in the ED: ED Medications Discontinued Medications Generic Name Dose Route Start Last Admin Trade Name Freq PRN Reason Stop Dose Admin Ketorolac Tromethamine 30 mg 01/06/18 16:08 01/06/18 17:28 Toradol Injection - IM 01/06/18 16:09 30 mg ONCE ONE Administration Medical Decision Making - Medical Decision Making X-ray show a moderate to severe amount of arthritis in the lumbar spine L4-L5 anterior low listhesis 01/06/18 17:54 *DC/Admit/Observation/Transfer Diagnosis at time of Disposition: Muscle strain, Lumbar strain, Cervical strain, Wrist strain - Discharge Dispostion Disposition: HOME Condition at time of disposition: Stable Decision to Admit order: No - Referrals Referrals: Nieves Marie MD [Primary Care Provider] - Johnny Pate MD [Staff Physician] - - Patient Instructions Printed Discharge Instructions: Muscle Strain, DI for Cervical Muscle Strain, DI for Wrist Strain Additional Instructions: Please take the muscle relaxer as directed which will help with your pain. Its one tablet before bedtime. Will make you sleepy. Return to the emergency room should symptoms worsen or go unresolved. Follow-up with orthopedic surgery in 1- 2 days for further evaluation and treatment options. He may only take Tylenol in addition to IV given you for pain because of the other medications take on a daily basis. - Post Discharge Activity Forms/Work/School Notes: Back to Work
== END 2018-01-06 18:00 | disposition home or self-care (01) ==
LOC: JERFT 15:52
PROC: 3E0233Z Introduction of Anti-inflammatory into Muscle, Percutaneous Approach (ICD-10-PCS; principal; 2018-01-06)
DX: S16.1XXA Strain of muscle, fascia and tendon at neck level, initial encounter (principal); S39.012A Strain of muscle, fascia and tendon of lower back, initial encounter; S66.812A Strain of other specified muscles, fascia and tendons at wrist and hand level, left hand, initial encounter; W19.XXXA Unspecified fall, initial encounter; Y93.89 Activity, other specified; Y92.89 Other specified places as the place of occurrence of the external cause; Y99.8 Other external cause status; M47.896 Other spondylosis, lumbar region; I10 Essential (primary) hypertension; E11.9 Type 2 diabetes mellitus without complications; Z79.84 Long term (current) use of oral hypoglycemic drugs; E78.5 Hyperlipidemia, unspecified; J45.909 Unspecified asthma, uncomplicated; Z85.46 Personal history of malignant neoplasm of prostate
CPT/HCPCS: 72100-TC-FY; 99281-25

== ENCOUNTER 2018-02-10 15:30 | Emergency (ER) | payer OTHER ==
--- NOTE | 2018-02-10 15:46 | PDOC ---
Rapid Medical Evaluation Time Seen by Provider: 02/10/18 15:44 Medical Evaluation: Allergies Allergy/AdvReac Type Severity Reaction Status Date / Time No Known Allergies Allergy Verified 09/26/16 20:23 I have performed a brief in-person evaluation of this patient. The patient presents with a chief complaint of: scratched by a cat 3 days ago on right 3rd finger. There is purulent discharge. Patient is a diabetic Pertinent physical exam findings: purulent discharge from right 3rd finger. Paronychia I have ordered the following: nothing The patient will proceed to the ED for further evaluation. Discharge Disposition - Diagnosis Paronychia, Abscess - Referrals Referrals: Nieves Marie MD [Primary Care Provider] - - Patient Instructions - Post Discharge Activity
[2018-02-10 15:49] VITALS: BP 134/81; PULSE 81; TEMP 99.4; BMI 30.7
--- NOTE | 2018-02-10 16:57 | PDOC ---
History of Present Illness - General Chief Complaint: Wound Stated Complaint: INJURY/SWELLING,RT FINGER Time Seen by Provider: 02/10/18 15:44 History Source: Patient Exam Limitations: No Limitations Past History - Travel Traveled outside of the country in the last 30 days: No Close contact w/someone who was outside of country & ill: No - Past Medical History Allergies/Adverse Reactions: Allergies Allergy/AdvReac Type Severity Reaction Status Date / Time No Known Allergies Allergy Verified 02/10/18 15:48 Home Medications: Ambulatory Orders Albuterol Sulfate 0.5% [Ventolin 0.5% Nebulizing Soln. -] 1 neb IH PRN PRN 03/05 Atorvastatin Ca [Lipitor] 80 mg PO HS 03/05/16 Glipizide Xl [Glucotrol Xl -] 5 mg PO DAILY 03/05/16 Losartan/Hydrochlorothiazide [Losartan-Hctz 100-25 mg Tab] 1 each PO DAILY 03/05 Multivitamin [Poly-Vitamin] 1 each PO DAILY 03/05/16 Tamsulosin HCl [Flomax] 0.8 mg PO HS 03/05/16 Mirabegron [Myrbetriq] 50 mg PO HS 05/30/16 Aspirin [ASA -] 81 mg PO DAILY #100 tab MDD 1 06/29/16 Acetaminophen [Tylenol .Regular Strength -] 650 mg PO Q4H PRN #0 tablet Amlodipine Besylate [Norvasc -] 5 mg PO DAILY #30 tablet 09/30/16 Metformin HCl [Glucophage] 1,000 mg PO BID #60 tablet 09/30/16 Beclomethasone Dipropionate [Qvar] 8.7 gm IH DAILY 01/06/18 Cyclobenzaprine HCl [Flexeril 10 mg] 10 mg PO HS PRN #10 tablet 01/06/18 Asthma: Yes Cancer: Yes (Prostate CA.) COPD: No Diabetes: Yes HTN: Yes Hypercholesterolemia: Yes - Surgical History Abdominal Surgery: No Appendectomy: No Cardiac Surgery: No - Immunization History Immunization Up to Date: Yes - Suicide/Smoking/Psychosocial Hx Smoking Status: No Smoking History: Never smoked Have you smoked in the past 12 months: No Number of Cigarettes Smoked Daily: 0 If you are a former smoker, when did you quit?: 40 Information on smoking cessation initiated: No Hx Alcohol Use: No Drug/Substance Use Hx: No Substance Use Type: Alcohol Hx Substance Use Treatment: No Review of Systems - Review of Systems Able to Perform ROS?: Yes Is the patient limited [place] proficient: No *Physical Exam - Vital Signs Last Vital Signs Temp Pulse Resp BP Pulse Ox 99.4 F 81 17 134/81 100 02/10/18 15:46 02/10/18 15:46 02/10/18 15:46 02/10/18 15:46 02/10/18 15:46 *DC/Admit/Observation/Transfer Diagnosis at time of Disposition: Paronychia, Abscess - Discharge Dispostion Disposition: HOME Condition at time of disposition: Stable Decision to Admit order: No - Referrals Referrals: Nieves Marie MD [Primary Care Provider] - - Patient Instructions Printed Discharge Instructions: DI for Paronychia Additional Instructions: You have a paronychia or skin infection near the nail bed Please do warm water soaks to the area 3-5 times a day for the next week Take the bactrim and keflex twice a day for the next week Follow up with your primary care doctor this week Return to the ED for worsening abscess, fevers ,chills, worsening pain, or if you have any changes in your symptoms - Post Discharge Activity Forms/Work/School Notes: Back to Work
== END 2018-02-10 17:02 | disposition home or self-care (01) ==
LOC: JER 15:30 → JERFT 15:30
DX: L03.011 Cellulitis of right finger (principal); W55.03XA Scratched by cat, initial encounter; Y93.89 Activity, other specified; Y92.89 Other specified places as the place of occurrence of the external cause; Y99.8 Other external cause status; I10 Essential (primary) hypertension; E78.00 Pure hypercholesterolemia, unspecified; E11.9 Type 2 diabetes mellitus without complications; Z79.84 Long term (current) use of oral hypoglycemic drugs; J45.909 Unspecified asthma, uncomplicated; Z85.46 Personal history of malignant neoplasm of prostate
CPT/HCPCS: 99281-25

== ENCOUNTER 2018-03-16 23:48 | Emergency (ER) | payer OTHER ==
[2018-03-17 00:09] VITALS: BMI 66.6
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
[2018-03-17] MEDS ORDERED: KETOROLAC TROMETHAMINE 15 MG/ML VIAL IM ONE (03:02)
[2018-03-17] MEDS ORDERED: KETOROLAC TROMETHAMINE 30 MG/1 ML VIAL IM ONE (03:22)
[2018-03-17] MEDS ORDERED: KETOROLAC TROMETHAMINE 30 MG/1 ML VIAL ONE (03:24)
[2018-03-17 03:59] VITALS: BP 127/78; PULSE 71; TEMP 97.9
== END 2018-03-17 03:59 | disposition home or self-care (01) ==
LOC: JER 23:48
PROC: 3E0233Z Introduction of Anti-inflammatory into Muscle, Percutaneous Approach (ICD-10-PCS; principal; 2018-03-16)
DX: S00.83XA Contusion of other part of head, initial encounter (principal); Y04.0XXA Assault by unarmed brawl or fight, initial encounter; Y93.89 Activity, other specified; Y92.412 Parkway as the place of occurrence of the external cause; I10 Essential (primary) hypertension; E78.5 Hyperlipidemia, unspecified; E11.9 Type 2 diabetes mellitus without complications; Z85.46 Personal history of malignant neoplasm of prostate; J45.909 Unspecified asthma, uncomplicated; Z79.82 Long term (current) use of aspirin
CPT/HCPCS: 70450-TC; 70486-TC; 73130-TC-RT-FY; 99282-25

== ENCOUNTER 2018-10-05 09:06 | Inpatient (IN) | payer OTHER ==
--- NOTE | 2018-10-05 09:27 | PDOC ---
Attending Attestation - Resident Resident Name: Sa Sarahira - HPI HPI: 10/05/18 11:28 Pt presents to the ED complaining of L sided chest pain and L arm pain that started today. Currently chest pain free. Also complaining of shortness of breath and lightheadness. No prior history of similar pain. No nausea, vomiting or diaphoresis. 10/05/18 11:36 - Physicial Exam PE: 10/05/18 11:38 Agree with resident exam. Patient is alert and oriented x 3 and in no acute distress. Lungs are clear. Heart regular rate and rhythm. - Medical Decision Making 10/05/18 11:39 Pt presents to the ED complaining of chest pain and shortness of breath. EKg shows no evidence of ischemia. Given age and risk factors, patient is at intermediate risk of cardiovascular disease--will check labs and cardiac enzymes and admit for obs for R/o NH. Patient also has history of active prostate CA. Will perform CTA to rule out PE. 10/05/18 11:41
[2018-10-05] MEDS ORDERED: ASPIRIN 81 MG CHEWABLE TABLETS PO ONE (09:39)
[2018-10-05] MEDS ORDERED: ASPIRIN 81 MG CHEWABLE TABLETS ONE (09:45)
[2018-10-05 10:27] LABS: BASO % 0.9 % (0-2.0); HEMOGLOBIN 14.3 GM/dL (11.7-16.9); RDW 13.8 % (11.9-15.9)
[2018-10-05 10:46] LABS: INR 0.89 (0.83-1.09); PROTHROMBIN TIME (PATIENT) 10.5 SEC (9.7-13.0)
--- NOTE | 2018-10-05 10:58 | PDOC ---
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 Past History - Past Medical History Allergies/Adverse Reactions: Allergies Allergy/AdvReac Type Severity Reaction Status Date / Time No Known Allergies Allergy Verified 10/05/18 09:14 Home Medications: Ambulatory Orders Albuterol Sulfate 0.5% [Ventolin 0.5% Nebulizing Soln. -] 1 neb IH PRN PRN 03/05 Atorvastatin Ca [Lipitor] 80 mg PO HS 03/05/16 Glipizide Xl [Glucotrol Xl -] 5 mg PO DAILY 03/05/16 Losartan/Hydrochlorothiazide [Losartan-Hctz 100-25 mg Tab] 1 each PO DAILY 03/05 Multivitamin [Poly-Vitamin] 1 each PO DAILY 03/05/16 Tamsulosin HCl [Flomax] 0.8 mg PO HS 03/05/16 Mirabegron [Myrbetriq] 50 mg PO HS 05/30/16 Aspirin [ASA -] 81 mg PO DAILY #100 tab MDD 1 06/29/16 Acetaminophen [Tylenol .Regular Strength -] 650 mg PO Q4H PRN #0 tablet Amlodipine Besylate [Norvasc -] 5 mg PO DAILY #30 tablet 09/30/16 Metformin HCl [Glucophage] 1,000 mg PO BID #60 tablet 09/30/16 Beclomethasone Dipropionate [Qvar] 8.7 gm IH DAILY 01/06/18 Cyclobenzaprine HCl [Flexeril 10 mg] 10 mg PO HS PRN #10 tablet 01/06/18 Cephalexin Monohydrate [Keflex -] 500 mg PO BID #14 capsule 02/11/18 Sulfamethoxazole/Trimethoprim [Bactrim Ds -] 1 tab PO BID #14 tablet 02/11/18 Asthma: Yes Cancer: Yes (Prostate CA.) COPD: No Diabetes: Yes HTN: Yes Hypercholesterolemia: Yes - Surgical History Abdominal Surgery: No Appendectomy: No Cardiac Surgery: No - Immunization History Immunization Up to Date: Yes - Suicide/Smoking/Psychosocial Hx Smoking Status: No Smoking History: Unknown if ever smoked Have you smoked in the past 12 months: No Number of Cigarettes Smoked Daily: 0 If you are a former smoker, when did you quit?: 40 Information on smoking cessation initiated: Yes Hx Alcohol Use: No Drug/Substance Use Hx: No Substance Use Type: Alcohol Hx Substance Use Treatment: No *Physical Exam - Vital Signs Last Vital Signs Temp Pulse Resp BP Pulse Ox 97.9 F 90 18 132/76 97 10/05/18 09:12 10/05/18 09:12 10/05/18 09:12 10/05/18 09:12 10/05/18 09:12 ED Treatment Course - LABORATORY CBC & Chemistry Diagram: 10/05/18 10:13 10/05/18 10:13 - ADDITIONAL ORDERS Additional order review: Laboratory Results 10/05/18 10:13 PT with INR 10.50 INR 0.89 - RADIOLOGY Radiology Studies Ordered: Category Date Time Status CHEST PA & LAT [RAD] Stat Radiology 10/05/18 09:39 Taken - Medications Given in the ED: ED Medications Discontinued Medications Generic Name Dose Route Start Last Admin Trade Name Freq PRN Reason Stop Dose Admin Aspirin 162 mg 10/05/18 09:39 10/05/18 10:07 Asa - PO 10/05/18 09:40 162 mg ONCE ONE Administration *DC/Admit/Observation/Transfer - Referrals Referrals: Nieves Marie MD [Primary Care Provider] - - Patient Instructions - Post Discharge Activity
[2018-10-05 11:00] LABS: BILIRUBIN,TOTAL 0.5 mg/dL (0.2-1); BLOOD UREA NITROGEN 17.2 mg/dL (7-18); CREATININE 0.8 mg/dL (0.55-1.3); MAGNESIUM 2.4 mg/dL (1.8-2.4); N-TERMINAL BNP 10.6 pg/ml (5-125); POTASSIUM 3.8 mmol/L (3.5-5.1)
[2018-10-05 11:04] LABS: EOS % 2.6 % (0-4.5); HEMATOCRIT 43.5 % (35.4-49); LYMPH % 24.1 % (8-40); MCH 29.6 pg (25.7-33.7); MCHC 32.9 g/dl (32.0-35.9); MEAN PLT VOLUME 6.7 fl (7.5-11.1); MONO % 8.3 % (3.8-10.2); NEUT % 64.1 % (42.8-82.8); PLATELET COUNT 264 K/MM3 (134-434); RBC 4.83 M/mm3 (4.00-5.60); WHITE BLOOD COUNT 6.1 K/mm3 (4.0-10.0)
--- NOTE | 2018-10-05 11:08 | EKG ---
Test Reason : Blood Pressure : / mmHG Vent. Rate : 081 BPM Atrial Rate : 081 BPM P-R Int : 164 ms QRS Dur : 100 ms QT Int : 374 ms P-R-T Axes : 060 024 021 degrees QTc Int : 434 ms NORMAL SINUS RHYTHM POSSIBLE LEFT ATRIAL ENLARGEMENT BORDERLINE ECG WHEN COMPARED WITH ECG OF 31-JAN-2017 11:08, NO SIGNIFICANT CHANGE WAS FOUND Confirmed by KERA THOMAS MD ([id number]) on 10/05/2018 11:08:13 AM Referred By: Confirmed By:KERA THOMAS MD
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
[2018-10-05] MEDS ORDERED: ACETAMINOPHEN 325 MG TABLET (FP) PO PRN (16:36)
[2018-10-05] MEDS ORDERED: ALBUTEROL SO4 8 GM HFA INHALER IH PRN (16:45)
--- NOTE | 2018-10-05 16:46 | HP ---
Admitting History and Physical - Primary Care Physician PCP: Radha Zambrano - Admission Chief Complaint: cp History of Present Illness: pt seen / examined in er Chart is reviewed Case Discussed with er Physician. 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 denies going to arms/ back ekg/ troponins -ve d dimer +ve cta -ve pt has risk factors being admitted for further monitoring Cardiology consult noted/ appreciated. History Source: Patient Limitations to Obtaining History: No Limitations - Past Medical History Cardiovascular: Yes: HTN Pulmonary: Yes: Asthma Heme/Onc: Yes: Other (prostate cancer) Endocrine: Yes: Diabetes Mellitus - Smoking History Smoking history: Unknown if ever smoked Have you smoked in the past 12 months: No Aproximately how many cigarettes per day: 0 If you are a former smoker, when did you quit?: 40 - Alcohol/Substance Use Hx Alcohol Use: No Home Medications - Allergies Allergies/Adverse Reactions: Allergies Allergy/AdvReac Type Severity Reaction Status Date / Time No Known Allergies Allergy Verified 10/05/18 09:14 - Home Medications Home Medications: Ambulatory Orders Albuterol Sulfate 0.5% [Ventolin 0.5% Nebulizing Soln. -] 1 neb IH PRN PRN 03/05 Atorvastatin Ca [Lipitor] 80 mg PO HS 03/05/16 Glipizide Xl [Glucotrol Xl -] 5 mg PO DAILY 03/05/16 Losartan/Hydrochlorothiazide [Losartan-Hctz 100-25 mg Tab] 1 each PO DAILY 03/05 Multivitamin [Poly-Vitamin] 1 each PO DAILY 03/05/16 Tamsulosin HCl [Flomax] 0.8 mg PO HS 03/05/16 Mirabegron [Myrbetriq] 50 mg PO HS 05/30/16 Aspirin [ASA -] 81 mg PO DAILY #100 tab MDD 1 06/29/16 Acetaminophen [Tylenol .Regular Strength -] 650 mg PO Q4H PRN #0 tablet Amlodipine Besylate [Norvasc -] 5 mg PO DAILY #30 tablet 09/30/16 Metformin HCl [Glucophage] 1,000 mg PO BID #60 tablet 09/30/16 Beclomethasone Dipropionate [Qvar] 8.7 gm IH DAILY 01/06/18 Cyclobenzaprine HCl [Flexeril 10 mg] 10 mg PO HS PRN #10 tablet 01/06/18 Albuterol Sulfate [Proair Hfa] 2 puff IH PRN 10/05/18 Ascorbic Acid [Vitamin C] 1,000 mg PO BID 10/05/18 Cholecalciferol (Vitamin D3) [D-2000] 1,000 unit PO DAILY 10/05/18 Sildenafil Citrate [Sildenafil] 20 mg PO PRN PRN 10/05/18 Family Disease History - Family Disease History Family History: Unremarkable Review of Systems - Review of Systems Constitutional: reports: No Symptoms Eyes: reports: No Symptoms HENT: reports: No Symptoms Neck: reports: No Symptoms Cardiovascular: reports: Chest Pain, Shortness of Breath Respiratory: reports: SOB Gastrointestinal: reports: No Symptoms Genitourinary: reports: No Symptoms Neurological: reports: No Symptoms Hematology/Lymphatic: reports: No Symptoms Psychiatric: reports: No Symptoms Physical Examination Vital Signs: Vital Signs Temperature 98.2 F 10/05/18 16:30 Pulse Rate 84 10/05/18 16:30 Respiratory Rate 16 10/05/18 16:30 Blood Pressure 133/67 10/05/18 16:30 O2 Sat by Pulse Oximetry (%) 98 10/05/18 16:30 Constitutional: Yes: No Distress, Calm Eyes: Yes: Conjunctiva Clear Neck: Yes: Supple Cardiovascular: Yes: Regular Rate and Rhythm Respiratory: Yes: CTA Bilaterally Gastrointestinal: Yes: Soft Edema: No Neurological: Yes: Alert Psychiatric: Yes: Alert Labs: CBC, BMP 10/05/18 10:13 10/05/18 10:13 Imaging - Results Chest X-ray: Report Reviewed Cat Scan: Report Reviewed EKG: Report Reviewed Problem List - Problems (1) CAD (coronary artery disease) Code(s): I25.10 - ATHSCL HEART DISEASE OF [place] CORONARY ARTERY W/O ANG PCTRS (2) Chest pain Code(s): R07.9 - CHEST PAIN, UNSPECIFIED Qualifiers: Chest pain type: unspecified Qualified Code(s): R07.9 - Chest pain, unspecified (3) Diabetes mellitus Code(s): E11.9 - TYPE 2 DIABETES MELLITUS WITHOUT COMPLICATIONS Assessment/Plan monitor on tele orders written f/u troponins echo labs ordered monitor bgm will follow Discussed with pt
[2018-10-05 18:28] VITALS: BMI 31.3
[2018-10-05] MEDS: HEPARIN NA (PORCINE) 5,000 UNITS/ML 1ML VIAL SQ SCH (21:35)
[2018-10-05] MEDS: ATORVASTATIN CA 80 MG TABLET (FP) PO SCH (21:35)
[2018-10-05] MEDS ORDERED: PATIENT'S OWN MEDICATION (NON-FORMULARY) (Mirabegron [Myrbetriq] 50 MG) PO SCH (22:00)
[2018-10-06] MEDS: INSULIN SLIDING SCALE (NOVOLOG) 1 VIAL SQ SCH ×2 (06:15→16:47)
[2018-10-06] MEDS ORDERED: PATIENT'S OWN MEDICATION (NON-FORMULARY) (Beclomethasone Dipropionate [Qvar] 8.7 GM) IH SCH (10:00)
[2018-10-06] MEDS ORDERED: PATIENT'S OWN MEDICATION (NON-FORMULARY) (Losartan/Hydrochlorothiazide [Losartan-Hctz 100- PO SCH (10:00)
[2018-10-06] MEDS ORDERED: LOSARTAN POTASSIUM 100 MG TABLET PO SCH (10:00)
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
--- NOTE | 2018-10-06 13:17 | PN ---
Progress Note (short form) - Note Progress Note: no further episodes of chest pain underwent stress test today Vital Signs - 24 hr 10/05/18 10/05/18 10/05/18 16:00 16:30 18:07 Temperature 98.2 F 98.1 F Pulse Rate 91 H Pulse Rate [ 84 Left Radial] Respiratory 16 16 Rate Blood Pressure 128/72 Blood Pressure 133/67 [Left Arm] O2 Sat by Pulse 98 98 Oximetry (%) 10/05/18 10/05/18 10/05/18 18:42 20:45 21:00 Temperature 98.4 F Pulse Rate 84 Pulse Rate [ Left Radial] Respiratory 18 18 Rate Blood Pressure 148/78 Blood Pressure [Left Arm] O2 Sat by Pulse 98 97 Oximetry (%) 10/06/18 10/06/18 10/06/18 01:00 04:00 05:00 Temperature 97.6 F 97.2 F L Pulse Rate 71 78 Pulse Rate [ Left Radial] Respiratory 20 20 20 Rate Blood Pressure 129/79 142/82 Blood Pressure [Left Arm] O2 Sat by Pulse 97 Oximetry (%) 10/06/18 08:03 Temperature 97.6 F Pulse Rate 72 Pulse Rate [ Left Radial] Respiratory 18 Rate Blood Pressure 146/89 Blood Pressure [Left Arm] O2 Sat by Pulse Oximetry (%) Current Medications Generic Name Dose Route Start Last Admin Trade Name Freq PRN Reason Stop Dose Admin Acetaminophen 650 mg 10/05/18 16:36 Tylenol - PO Q4H PRN FEVER Albuterol Sulfate 2 puff 10/05/18 16:45 Ventolin Hfa Inhaler - IH Q6H PRN SHORTNESS OF BREATH Amlodipine Besylate 5 mg 10/06/18 10:00 Norvasc - PO DAILY [facility] Aspirin 81 mg 10/06/18 10:00 Ecotrin - PO DAILY [facility] Atorvastatin Calcium 80 mg 10/05/18 22:00 10/05/18 21:35 Lipitor - PO 80 mg HS [facility] Administration Cholecalciferol 1,000 unit 10/06/18 10:00 Vitamin D3 - PO DAILY [facility] Heparin Sodium (Porcine) 5,000 unit 10/05/18 22:00 10/05/18 21:35 Heparin - SQ 5,000 unit BID [facility] Administration Hydrochlorothiazide 25 mg 10/06/18 10:00 Hctz - PO DAILY [facility] Insulin Aspart 1 vial 10/06/18 07:00 10/06/18 06:15 Novolog Vial Sliding Scale - SQ Not Given BIDAC [facility] Protocol Losartan Potassium 100 mg 10/06/18 10:00 Losartan Potassium PO DAILY [facility] Non-Formulary Medication 8.7 gm 10/06/18 10:00 Beclomethasone Dipropionate [Qvar] IH DAILY [facility] Non-Formulary Medication 50 mg 10/05/18 22:00 Mirabegron [Myrbetriq] PO HS [facility] Tamsulosin HCl 0.8 mg 10/06/18 08:30 Flomax - PO DAILY@0830 [facility] Laboratory Results - last 24 hr 10/05/18 10/06/18 10/06/18 18:30 02:30 06:13 POC Glucometer 112 Hemoglobin A1c % Troponin I < 0.02 < 0.02 Triglycerides Cholesterol Total LDL Cholesterol HDL Cholesterol TSH 10/06/18 10/06/18 06:25 06:25 POC Glucometer Hemoglobin A1c % 6.2 Troponin I Triglycerides 93 Cholesterol 79 Total LDL Cholesterol 20 HDL Cholesterol 50 TSH 2.04 D s1 S2 RRR Lungs clear Abd- soft, NT no edema PLAN chest pain -- stress test results pending -- continue with meds -- cardiology eval noted -- cardiac enzymes negative Problem List - Problems (1) Chest pain Code(s): R07.9 - CHEST PAIN, UNSPECIFIED Qualifiers: Chest pain type: unspecified Qualified Code(s): R07.9 - Chest pain, unspecified (2) Diabetes mellitus Code(s): E11.9 - TYPE 2 DIABETES MELLITUS WITHOUT COMPLICATIONS (3) HTN (hypertension) Code(s): I10 - ESSENTIAL (PRIMARY) HYPERTENSION
[2018-10-06] MEDS ORDERED: PT OWN MED DRAWER 7, Y5N ONE (13:31)
[2018-10-06] MEDS: amLODIPine BESYLATE 5 MG TABLET (FP) PO SCH (13:50)
[2018-10-06] MEDS: TAMSULOSIN HCL 0.4 MG CAP PO SCH (13:50)
[2018-10-06] MEDS: CHOLECALCIFEROL (VIT D3) 1,000 UNIT (25 MCG) TABLET PO SCH (13:51)
[2018-10-06] MEDS: ASPIRIN COATED 81 MG TABLET.EC PO SCH (13:51)
[2018-10-06] MEDS: HEPARIN NA (PORCINE) 5,000 UNITS/ML 1ML VIAL SQ SCH ×2 (13:51→21:53)
[2018-10-06] MEDS: HYDROCHLOROTHIAZIDE 25 MG TABLET (FP) PO SCH (13:51)
[2018-10-06] MEDS: LOSARTAN POTASSIUM 50 MG TABLET (FP) PO SCH (14:19)
[2018-10-06] MEDS: ATORVASTATIN CA 80 MG TABLET (FP) PO SCH (21:53)
[2018-10-07] MEDS: INSULIN SLIDING SCALE (NOVOLOG) 1 VIAL SQ SCH ×2 (06:25→17:03)
[2018-10-07] MEDS: LOSARTAN POTASSIUM 50 MG TABLET (FP) PO SCH (10:28)
[2018-10-07] MEDS: CHOLECALCIFEROL (VIT D3) 1,000 UNIT (25 MCG) TABLET PO SCH (10:28)
[2018-10-07] MEDS: TAMSULOSIN HCL 0.4 MG CAP PO SCH (10:28)
[2018-10-07] MEDS: HYDROCHLOROTHIAZIDE 25 MG TABLET (FP) PO SCH (10:29)
[2018-10-07] MEDS: amLODIPine BESYLATE 5 MG TABLET (FP) PO SCH (10:30)
[2018-10-07] MEDS: HEPARIN NA (PORCINE) 5,000 UNITS/ML 1ML VIAL SQ SCH ×2 (10:30→21:22)
[2018-10-07] MEDS: ASPIRIN COATED 81 MG TABLET.EC PO SCH (10:30)
--- NOTE | 2018-10-07 11:46 | PN ---
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 Vital Signs - 24 hr 10/06/18 10/06/18 10/06/18 12:00 14:32 18:00 Temperature 98.7 F 98.0 F Pulse Rate 80 74 Respiratory 16 18 Rate Blood Pressure 139/85 145/84 O2 Sat by Pulse 97 Oximetry (%) 10/06/18 10/06/18 10/07/18 20:00 22:00 01:57 Temperature 97.9 F 97.9 F Pulse Rate 93 H 63 Respiratory 18 20 Rate Blood Pressure 130/84 121/77 O2 Sat by Pulse 98 Oximetry (%) 10/07/18 10/07/18 10/07/18 04:00 05:33 10:00 Temperature 97.8 F Pulse Rate 67 82 Respiratory 20 20 Rate Blood Pressure 124/77 129/64 O2 Sat by Pulse 98 Oximetry (%) Current Medications Generic Name Dose Route Start Last Admin Trade Name Freq PRN Reason Stop Dose Admin Acetaminophen 650 mg 10/05/18 16:36 Tylenol - PO Q4H PRN FEVER Albuterol Sulfate 2 puff 10/05/18 16:45 Ventolin Hfa Inhaler - IH Q6H PRN SHORTNESS OF BREATH Amlodipine Besylate 5 mg 10/06/18 10:00 10/07/18 10:30 Norvasc - PO 5 mg DAILY [facility] Administration Aspirin 81 mg 10/06/18 10:00 10/07/18 10:30 Ecotrin - PO 81 mg DAILY [facility] Administration Atorvastatin Calcium 80 mg 10/05/18 22:00 10/06/18 21:53 Lipitor - PO 80 mg HS [facility] Administration Cholecalciferol 1,000 unit 10/06/18 10:00 10/07/18 10:28 Vitamin D3 - PO 1,000 unit DAILY [facility] Administration Heparin Sodium (Porcine) 5,000 unit 10/05/18 22:00 10/07/18 10:30 Heparin - SQ 5,000 unit BID [facility] Administration Hydrochlorothiazide 25 mg 10/06/18 10:00 10/07/18 10:29 Hctz - PO 25 mg DAILY [facility] Administration Insulin Aspart 1 vial 10/06/18 07:00 10/07/18 06:25 Novolog Vial Sliding Scale - SQ Not Given BIDAC [facility] Protocol Losartan Potassium 100 mg 10/06/18 14:15 10/07/18 10:28 Cozaar - PO 100 mg DAILY [facility] Administration Non-Formulary Medication 8.7 gm 10/06/18 10:00 Beclomethasone Dipropionate [Qvar] IH DAILY [facility] Non-Formulary Medication 50 mg 10/05/18 22:00 Mirabegron [Myrbetriq] PO HS [facility] Tamsulosin HCl 0.8 mg 10/06/18 08:30 10/07/18 10:28 Flomax - PO 0.8 mg DAILY@0830 [facility] Administration Laboratory Results - last 24 hr 10/06/18 10/06/18 10/07/18 16:41 19:30 06:15 POC Glucometer 103 134 Troponin I < 0.02 s1 S2 RRR Lungs clear Abd- soft, NT no edema PLAN chest pain -- stress test positive for ischemia -- continue with meds -- awaiting transfer to [facility] for cardiac cath Problem List - Problems (1) Chest pain Code(s): R07.9 - CHEST PAIN, UNSPECIFIED Qualifiers: Chest pain type: unspecified Qualified Code(s): R07.9 - Chest pain, unspecified (2) Diabetes mellitus Code(s): E11.9 - TYPE 2 DIABETES MELLITUS WITHOUT COMPLICATIONS (3) HTN (hypertension) Code(s): I10 - ESSENTIAL (PRIMARY) HYPERTENSION
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
[2018-10-07] MEDS ORDERED: CLOPIDOGREL BISULFATE 300 MG TABLET PO ONE (12:45)
[2018-10-07] MEDS: ATORVASTATIN CA 80 MG TABLET (FP) PO SCH (21:22)
[2018-10-08] MEDS: INSULIN SLIDING SCALE (NOVOLOG) 1 VIAL SQ SCH ×2 (06:18→16:57)
[2018-10-08] MEDS: amLODIPine BESYLATE 5 MG TABLET (FP) PO SCH (09:11)
[2018-10-08] MEDS: TAMSULOSIN HCL 0.4 MG CAP PO SCH (09:11)
[2018-10-08] MEDS: HYDROCHLOROTHIAZIDE 25 MG TABLET (FP) PO SCH (09:11)
[2018-10-08] MEDS: CHOLECALCIFEROL (VIT D3) 1,000 UNIT (25 MCG) TABLET PO SCH (09:11)
[2018-10-08] MEDS: LOSARTAN POTASSIUM 50 MG TABLET (FP) PO SCH (09:11)
[2018-10-08] MEDS: HEPARIN NA (PORCINE) 5,000 UNITS/ML 1ML VIAL SQ SCH (09:12)
[2018-10-08] MEDS: ASPIRIN COATED 81 MG TABLET.EC PO SCH (09:12)
[2018-10-08] MEDS ORDERED: CLOPIDOGREL BISULFATE 75 MG TABLET (FP) PO SCH (10:00)
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
--- NOTE | 2018-10-08 11:27 | PN ---
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 Vital Signs - 24 hr 10/07/18 10/07/18 10/07/18 12:00 13:31 18:00 Temperature 97.7 F 98.6 F Pulse Rate 102 H 82 Respiratory 16 16 18 Rate Blood Pressure 118/77 125/75 O2 Sat by Pulse 98 Oximetry (%) 10/07/18 10/07/18 10/08/18 20:00 20:51 00:00 Temperature 98.2 F 98.3 F Pulse Rate 80 71 Respiratory 18 18 Rate Blood Pressure 136/72 129/77 O2 Sat by Pulse 99 Oximetry (%) 10/08/18 10/08/18 06:00 09:09 Temperature 98.5 F 97.5 F L Pulse Rate 68 76 Respiratory 18 18 Rate Blood Pressure 123/72 152/82 O2 Sat by Pulse Oximetry (%) Current Medications Generic Name Dose Route Start Last Admin Trade Name Freq PRN Reason Stop Dose Admin Acetaminophen 650 mg 10/05/18 16:36 Tylenol - PO Q4H PRN FEVER Albuterol Sulfate 2 puff 10/05/18 16:45 Ventolin Hfa Inhaler - IH Q6H PRN SHORTNESS OF BREATH Amlodipine Besylate 5 mg 10/06/18 10:00 10/08/18 09:11 Norvasc - PO 5 mg DAILY [facility] Administration Aspirin 81 mg 10/06/18 10:00 10/08/18 09:12 Ecotrin - PO 81 mg DAILY [facility] Administration Atorvastatin Calcium 80 mg 10/05/18 22:00 10/07/18 21:22 Lipitor - PO 80 mg HS [facility] Administration Cholecalciferol 1,000 unit 10/06/18 10:00 10/08/18 09:11 Vitamin D3 - PO 1,000 unit DAILY [facility] Administration Clopidogrel Bisulfate 75 mg 10/08/18 10:00 10/08/18 09:12 Plavix - PO 75 mg DAILY [facility] Administration Heparin Sodium (Porcine) 5,000 unit 10/05/18 22:00 10/08/18 09:12 Heparin - SQ 5,000 unit BID [facility] Administration Hydrochlorothiazide 25 mg 10/06/18 10:00 10/08/18 09:11 Hctz - PO 25 mg DAILY [facility] Administration Insulin Aspart 1 vial 10/06/18 07:00 10/08/18 06:18 Novolog Vial Sliding Scale - SQ Not Given BIDAC [facility] Protocol Losartan Potassium 100 mg 10/06/18 14:15 10/08/18 09:11 Cozaar - PO 100 mg DAILY [facility] Administration Non-Formulary Medication 8.7 gm 10/06/18 10:00 Beclomethasone Dipropionate [Qvar] IH DAILY [facility] Non-Formulary Medication 50 mg 10/05/18 22:00 Mirabegron [Myrbetriq] PO HS [facility] Tamsulosin HCl 0.8 mg 10/06/18 08:30 10/08/18 09:11 Flomax - PO 0.8 mg DAILY@0830 [facility] Administration Laboratory Results - last 24 hr 10/07/18 10/08/18 16:59 05:29 POC Glucometer 140 114 s1 S2 RRR Lungs clear Abd- soft, NT no edema PLAN chest pain -- stress test positive for ischemia -- continue with meds -- awaiting transfer to [facility] for cardiac cath -- on Plavix and ASA Problem List - Problems (1) Chest pain Code(s): R07.9 - CHEST PAIN, UNSPECIFIED Qualifiers: Chest pain type: unspecified Qualified Code(s): R07.9 - Chest pain, unspecified (2) Diabetes mellitus Code(s): E11.9 - TYPE 2 DIABETES MELLITUS WITHOUT COMPLICATIONS (3) HTN (hypertension) Code(s): I10 - ESSENTIAL (PRIMARY) HYPERTENSION
[2018-10-08 18:45] VITALS: BP 127/86; PULSE 91; TEMP 98.2
== END 2018-10-08 18:58 | disposition short-term general hospital (02) | DRG 303 ==
LOC: JER 09:06 → JERBED 12:57 → J4S 17:27 → OBSVTOIN 10-08 08:34
PROVIDERS: ADMIT Internal Medicine; ATTEND Internal Medicine
DX: I25.10 Atherosclerotic heart disease of native coronary artery without angina pectoris (principal); C61 Malignant neoplasm of prostate; I25.9 Chronic ischemic heart disease, unspecified; I10 Essential (primary) hypertension; E11.9 Type 2 diabetes mellitus without complications; Z79.84 Long term (current) use of oral hypoglycemic drugs; E78.5 Hyperlipidemia, unspecified; J45.909 Unspecified asthma, uncomplicated; Z87.891 Personal history of nicotine dependence
CPT/HCPCS: 36415; 71046-TC-FY; 71275-TC; 78452-TC; 80053; 80061; 82962; 83036; 83721; 83735; 83880; 84443; 84484; 85025; 85379; 85610; 93005; 93010; 93017; 99285-25; A9502; G0378; J1644

== ENCOUNTER 2018-12-21 09:44 | Emergency (ER) | payer OTHER ==
[2018-12-21 10:36] VITALS: BP 124/71; PULSE 98; TEMP 98.1; BMI 31.8
--- NOTE | 2018-12-21 11:14 | PDOC ---
History of Present Illness - General Chief Complaint: Injury Stated Complaint: HEAD INJURY,BACK INJURY Time Seen by Provider: 12/21/18 11:01 History Source: Patient Exam Limitations: No Limitations - History of Present Illness Initial Comments: 12/21/18 11:12 63 year old male with medical history of HTN, DM, cholestemia, and prostate cancer and recent cardiac catherization presents after fall from chair at work. Patient reports falling off of his chair accidentally, hitting left side of head, right rib area on arm rest and using left wrist to break fall. Denies loc , nausea or vomiting. Occurred: reports: just prior to arrival Severity: reports: mild Pain Location: reports: back, neck, upper extremity Method of Injury: Yes: fall Modifying Factors: improves with: immobilization Loss of Consciousness: no loss of consciousness Associated Symptoms (Fall): denies symptoms Past History - Travel Traveled outside of the country in the last 30 days: No Close contact w/someone who was outside of country & ill: No - Past Medical History Allergies/Adverse Reactions: Allergies Allergy/AdvReac Type Severity Reaction Status Date / Time No Known Allergies Allergy Verified 12/21/18 10:16 Home Medications: Ambulatory Orders Albuterol Sulfate 0.5% [Ventolin 0.5% Nebulizing Soln. -] 1 neb IH PRN PRN 03/05 Atorvastatin Ca [Lipitor] 80 mg PO HS 03/05/16 Glipizide Xl [Glucotrol Xl -] 5 mg PO DAILY 03/05/16 Losartan/Hydrochlorothiazide [Losartan-Hctz 100-25 mg Tab] 1 each PO DAILY 03/05 Multivitamin [Poly-Vitamin] 1 each PO DAILY 03/05/16 Tamsulosin HCl [Flomax] 0.8 mg PO HS 03/05/16 Mirabegron [Myrbetriq] 50 mg PO HS 05/30/16 Aspirin [ASA -] 81 mg PO DAILY #100 tab MDD 1 06/29/16 Acetaminophen [Tylenol .Regular Strength -] 650 mg PO Q4H PRN #0 tablet Amlodipine Besylate [Norvasc -] 5 mg PO DAILY #30 tablet 09/30/16 Metformin HCl [Glucophage] 1,000 mg PO BID #60 tablet 09/30/16 Beclomethasone Dipropionate [Qvar] 8.7 gm IH DAILY 01/06/18 Cyclobenzaprine HCl [Flexeril 10 mg] 10 mg PO HS PRN #10 tablet 01/06/18 Albuterol Sulfate [Proair Hfa] 2 puff IH PRN 10/05/18 Ascorbic Acid [Vitamin C] 1,000 mg PO BID 10/05/18 Cholecalciferol (Vitamin D3) [D-2000] 1,000 unit PO DAILY 10/05/18 Sildenafil Citrate [Sildenafil] 20 mg PO PRN PRN 10/05/18 Naproxen 500 mg PO BID #20 tablet 12/21/18 Anemia: No Asthma: Yes Cancer: Yes (Prostate CA.) Cardiac Disorders: Yes CVA: No COPD: No CHF: No Dementia: No Diabetes: Yes GI Disorders: No Disorders: No HTN: Yes Hypercholesterolemia: Yes Liver Disease: No Seizures: No Thyroid Disease: No - Surgical History Abdominal Surgery: No Appendectomy: No Cardiac Surgery: No - Immunization History Immunization Up to Date: Yes - Suicide/Smoking/Psychosocial Hx Smoking Status: No Smoking History: Never smoked Have you smoked in the past 12 months: No Number of Cigarettes Smoked Daily: 0 If you are a former smoker, when did you quit?: 40 Information on smoking cessation initiated: No Hx Alcohol Use: No Drug/Substance Use Hx: No Substance Use Type: Alcohol Hx Substance Use Treatment: No Trauma Specific PMHX - Complaint Specific PMHX Arthritis: No Back Injury: No Neck Injury: No Hx Sacro Iliac Joint Dysfunction: No Review of Systems - Review of Systems Able to Perform ROS?: Yes Is the patient limited Turkmen proficient: No Constitutional: No: Chills, Fever HEENTM: No: Nose Pain, Nose Congestion, Throat Pain Respiratory: No: Cough, Orthopnea, Shortness of Breath, Stridor, Wheezing Cardiac (ROS): Yes: Other (right chest pain). No: Chest Pain, Lightheadedness, Palpitations ABD/GI: No: Difficulty Swallowing, Nausea, Poor Appetite, Vomiting : No: Dysuria, Discharge, Hematuria, Pain, Testicular Swelling Musculoskeletal: Yes: Back Pain, Neck Pain Integumentary: No: Bruising, Erythema Neurological: No: Numbness, Paresthesia *Physical Exam - Vital Signs Last Vital Signs Temp Pulse Resp BP Pulse Ox 98.1 F 98 H 19 124/71 98 12/21/18 10:15 12/21/18 10:15 12/21/18 10:15 12/21/18 10:15 12/21/18 10:15 - Physical Exam General Appearance: Yes: Nourished, Appropriately Dressed HEENT: positive: TMs Normal, Pharynx Normal Neck: positive: Supple. negative: Carotid bruit, Lymphadenopathy (R) Respiratory/Chest: positive: Lungs Clear, Normal Breath Sounds Cardiovascular: positive: Regular Rhythm, Regular Rate Musculoskeletal: positive: Other (left wrist tenderness, right chest below right breast tenderness, lumbar region tenderness with palpation) Neurologic: positive: Fully Oriented, Alert Medical Decision Making - Medical Decision Making 12/21/18 11:15 63 year old male with medical history of HTN, DM, cholestemia, and prostate cancer and recent cardiac catherization presents after fall from chair at work. Patient reports falling off of his chair accidentally, hitting left side of head, right rib area on arm rest and using left wrist to break fall. s/p fall xray of left wrist, right rib and lumbar anagesia naprosyn given 12/21/18 14:17 *DC/Admit/Observation/Transfer Diagnosis at time of Disposition: Fall Qualifiers: Encounter type: initial encounter Qualified Code(s): W19.XXXA - Unspecified fall, initial encounter - Discharge Dispostion Disposition: HOME Condition at time of disposition: Good Decision to Admit order: No - Prescriptions Prescriptions: Naproxen 500 mg PO BID #20 tablet - Referrals Referrals: Nieves Marie MD [Primary Care Provider] - - Patient Instructions Printed Discharge Instructions: DI for Musculoskeletal Pain Additional Instructions: activity as tolerated take medication twice daily for pain - Post Discharge Activity Forms/Work/School Notes: Back to Work
[2018-12-21] MEDS ORDERED: NAPROXEN 500 MG TABLET (FP) PO ONE (11:16)
[2018-12-21] MEDS ORDERED: NAPROXEN 500 MG TABLET (FP) ONE (11:25)
== END 2018-12-21 14:49 | disposition home or self-care (01) ==
LOC: JERFT 09:44 → JER 09:44 → JERFT 14:49
DX: S09.8XXA Other specified injuries of head, initial encounter (principal); S29.8XXA Other specified injuries of thorax, initial encounter; M25.532 Pain in left wrist; W07.XXXA Fall from chair, initial encounter; Y93.89 Activity, other specified; Y92.238 Other place in hospital as the place of occurrence of the external cause; Y99.0 Civilian activity done for income or pay; I25.10 Atherosclerotic heart disease of native coronary artery without angina pectoris; I10 Essential (primary) hypertension; Z98.61 Coronary angioplasty status; E78.00 Pure hypercholesterolemia, unspecified; E11.9 Type 2 diabetes mellitus without complications; Z79.84 Long term (current) use of oral hypoglycemic drugs; Z85.46 Personal history of malignant neoplasm of prostate
CPT/HCPCS: 71046-TC-FY; 71101-TC-RT-FY; 72100-TC-FY; 73110-TC-LT-FY; 99281-25

== ENCOUNTER 2019-01-22 13:20 | Emergency (ER) | payer OTHER ==
[2019-01-22 13:29] VITALS: BP 139/74; PULSE 97; TEMP 99; BMI 32.1
--- NOTE | 2019-01-22 13:29 | PDOC ---
Rapid Medical Evaluation Chief Complaint: Cold Symptoms Time Seen by Provider: 01/22/19 13:27 Medical Evaluation: Allergies Allergy/AdvReac Type Severity Reaction Status Date / Time No Known Allergies Allergy Verified 12/21/18 10:16 01/22/19 13:27 I have performed a brief in-person evaluation of this patient. The patient presents with a chief complaint of: Cold symptoms for 1-2 days, sent by boss from upstairs for eval. Had his flu shot this year Pertinent physical exam findings: Looks well The patient will proceed to the ED for further evaluation. Discharge Disposition - Diagnosis Upper respiratory infection - Referrals Referrals: Nieves Marie MD [Primary Care Provider] - - Patient Instructions - Post Discharge Activity
--- NOTE | 2019-01-22 13:54 | PDOC ---
History of Present Illness - General Chief Complaint: Cold Symptoms Stated Complaint: COLD SYMPTOMS Time Seen by Provider: 01/22/19 13:27 History Source: Patient Exam Limitations: No Limitations - History of Present Illness Initial Comments: 01/22/19 13:45 HISTORY OF PRESENT ILLNESS: This is a 63-year-old male past medical history of prostate CA, NIDDM, hypertension presents to the emergency department for evaluation of "not looking well" according to his engineering design supervisor. 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 Patient denies any complaints at this time. Patient was evaluated by his doctor yesterday and was started on amoxicillin for possible bronchitis. Patient says his sugar this morning was 120s but has not checked it since before breakfast. No recent travel or sick contacts. PAST MEDICAL HISTORY: Prostate CA (starting treatment in March), NIDDM, hypertension SURGICAL HISTORY: Denies ALLERGIES: No known drug allergies REVIEW OF SYSTEMS General/Constitutional: See HPI HEENT: Denies change in vision. Denies ear pain or discharge. Denies sore throat. Cardiovascular: Denies chest pain or shortness of breath. Respiratory: Denies cough, wheezing, or hemoptysis. Gastrointestinal: Denies nausea, vomiting, diarrhea or constipation. Denies rectal bleeding. Genitourinary: Denies dysuria, frequency, or change in urination. Musculoskeletal: Denies joint or muscle swelling or pain. Denies neck or back pain. Skin and breasts: Denies rash or easy bruising. Neurologic: Denies headache, vertigo, loss of consciousness, or loss of sensation. Psychiatric: Denies depression or anxiety. Endocrine: Denies increased thirst. Denies abnormal weight change. Hematologic/Lymphatic: Denies anemia, easy bleeding, or history of blood clots. Allergic/Immunologic: Denies hives or skin allergy. Denies latex allergy. PHYSICAL EXAM General Appearance: Well-appearing, appropriately dressed. No apparent distress , no intoxication. HEENT: EOMI, PERRLA, normal ENT inspection, normal voice, TMs normal, pharynx normal. No conjunctival pallor. No photophobia, scleral icterus. Neck: Supple. Trachea midline. No tenderness, rigidity, carotid bruit, stridor , lymphadenopathy, or thyromegaly. Respiratory/Chest: Lungs CTAB. No shortness of breath, chest tenderness, respiratory distress, accessory muscle use. No crackles, rales, rhonchi, stridor , wheezing, dullness Cardiovascular: RRR. S1, S2. No JVD, murmur, bradycardia, tachycardia. Vascular Pulses: Dorsalis-Pedis (R): 2+, Dorsalis-Pedis (L): 2+ Gastrointestinal/Abdominal: Normal bowel sounds. Abdomen soft, non-distended. No tenderness or rebound tenderness. No organomegaly, pulsatile mass, guarding, hernia, hepatomegaly, splenomegaly. Lymphatic: No adenopathy, tenderness. Musculoskeletal/Extremities: Normal inspection. FROM of all extremities, normal capillary refill. Pelvis Stable. No CVA tenderness. No tenderness to extremities, pedal edema, swelling, erythema or deformity. Integumentary: Appropriate color, dry, warm. No cyanosis, erythema, jaundice or rash Neurologic: psych coordinator II-XII intact. Fully oriented, alert. Appropriate mood/affect. Motor strength 5/5. No appreciable EOM palsy, facial droop or sensory deficit. Past History - Past Medical History Allergies/Adverse Reactions: Allergies Allergy/AdvReac Type Severity Reaction Status Date / Time No Known Allergies Allergy Verified 12/21/18 10:16 Home Medications: Ambulatory Orders Albuterol Sulfate 0.5% [Ventolin 0.5% Nebulizing Soln. -] 1 neb IH PRN PRN 03/05 Atorvastatin Ca [Lipitor] 80 mg PO HS 03/05/16 Glipizide Xl [Glucotrol Xl -] 5 mg PO DAILY 03/05/16 Losartan/Hydrochlorothiazide [Losartan-Hctz 100-25 mg Tab] 1 each PO DAILY 03/05 Multivitamin [Poly-Vitamin] 1 each PO DAILY 03/05/16 Tamsulosin HCl [Flomax] 0.8 mg PO HS 03/05/16 Mirabegron [Myrbetriq] 50 mg PO HS 05/30/16 Aspirin [ASA -] 81 mg PO DAILY #100 tab MDD 1 06/29/16 Acetaminophen [Tylenol .Regular Strength -] 650 mg PO Q4H PRN #0 tablet Amlodipine Besylate [Norvasc -] 5 mg PO DAILY #30 tablet 09/30/16 Metformin HCl [Glucophage] 1,000 mg PO BID #60 tablet 09/30/16 Beclomethasone Dipropionate [Qvar] 8.7 gm IH DAILY 01/06/18 Cyclobenzaprine HCl [Flexeril 10 mg] 10 mg PO HS PRN #10 tablet 01/06/18 Albuterol Sulfate [Proair Hfa] 2 puff IH PRN 10/05/18 Ascorbic Acid [Vitamin C] 1,000 mg PO BID 10/05/18 Cholecalciferol (Vitamin D3) [D-2000] 1,000 unit PO DAILY 10/05/18 Sildenafil Citrate [Sildenafil] 20 mg PO PRN PRN 10/05/18 Naproxen 500 mg PO BID #20 tablet 12/21/18 Anemia: No Asthma: Yes Cancer: Yes (Prostate CA.) Cardiac Disorders: Yes CVA: No COPD: No CHF: No Dementia: No Diabetes: Yes GI Disorders: No Disorders: No HTN: Yes Hypercholesterolemia: Yes Liver Disease: No Seizures: No Thyroid Disease: No - Surgical History Abdominal Surgery: No Appendectomy: No Cardiac Surgery: No - Immunization History Immunization Up to Date: Yes - Psycho Social/Smoking Cessation Hx Smoking Status: No Smoking History: Former smoker Have you smoked in the past 12 months: No Number of Cigarettes Smoked Daily: 0 If you are a former smoker, when did you quit?: 40 Information on smoking cessation initiated: No Hx Alcohol Use: No Drug/Substance Use Hx: Yes Substance Use Type: Alcohol Hx Substance Use Treatment: No *Physical Exam - Vital Signs Last Vital Signs Temp Pulse Resp BP Pulse Ox 99.0 F 97 H 17 139/74 98 01/22/19 13:26 01/22/19 13:26 01/22/19 13:26 01/22/19 13:26 01/22/19 13:26 Medical Decision Making - Medical Decision Making 01/22/19 13:54 A/P: 63-year-old male was sent by engineering design supervisor for evaluation of "not looking well Physical exam is within normal limits Given patient's history of diabetes I will get a blood sugar to evaluate for hypoglycemia. Reassess 01/22/19 14:17 BGM is 117. This patient is well-appearing I will discharge home to follow-up with primary doctor as needed. I discussed the physical exam findings, ancillary test results and final diagnoses with the patient. I answered all of the patient's questions. The patient was satisfied with the care received and felt comfortable with the discharge plan and treatment plan. The patient will call their primary care physician within 24 hours to arrange follow-up and will return to the Emergency Department with any new, persistent or worsening symptoms. Discharge - Discharge Information Problems reviewed: Yes Clinical Impression/Diagnosis: Upper respiratory infection Qualifiers: URI type: unspecified viral URI Qualified Code(s): J06.9 - Acute upper respiratory infection, unspecified Condition: Stable Disposition: HOME - Admission No - Follow up/Referral Referrals: Nieves Marie MD [Primary Care Provider] - - Patient Discharge Instructions Patient Printed Discharge Instructions: DI for Viral Upper Respiratory Infection -- Adult Additional Instructions: Rest, drink lots of fluids: Teas, water, soups, Pedialyte Saltwater gargles Steamy showers/seem to face break up mucus Avoid contact with others until fevers and cough resolved Lots of handwashing and good hygiene Continue [id number] medications for symptomatic relief Tylenol or Motrin for fever and pain Followup with private physician in one to 2 days as needed Return to emergency department for worsened symptoms, fevers, dehydration - Post Discharge Activity
== END 2019-01-22 14:24 | disposition home or self-care (01) ==
LOC: JER 13:20
DX: J06.9 Acute upper respiratory infection, unspecified (principal); B97.89 Other viral agents as the cause of diseases classified elsewhere; J45.909 Unspecified asthma, uncomplicated; E11.9 Type 2 diabetes mellitus without complications; Z79.84 Long term (current) use of oral hypoglycemic drugs; I10 Essential (primary) hypertension; Z85.46 Personal history of malignant neoplasm of prostate; Z87.891 Personal history of nicotine dependence
CPT/HCPCS: 82962; 99281-25

== ENCOUNTER 2019-02-05 11:33 | Emergency (ER) | payer OTHER ==
[2019-02-05 11:40] VITALS: BP 132/71; PULSE 91; TEMP 98.6; BMI 32.1
--- NOTE | 2019-02-05 12:16 | PDOC ---
History of Present Illness - General Chief Complaint: Cold Symptoms Stated Complaint: DIFF BREATHING Time Seen by Provider: 02/05/19 11:58 History Source: Patient Exam Limitations: Clinical Condition - History of Present Illness Initial Comments: 02/05/19 12:08 Patient with past medical history of [id number]-[id number] diabetes, prostate cancer, asthma and hypertension presented with complaint of one-week history of persistent cough which improved mildly 3 days ago after being treated on amoxicillin antibiotics by PCP and started again yesterday with yellow productive cough. Patient report has been using asthma medication Qvar daily and rescue inhaler with nebulizer since yesterday. Patient report intermittent shortness of breath chest tightness which improved with rescue inhaler. Denies fever, chills, body aches, chest pain, dizziness, numbness or tingling sensation. Patient denies any other symptoms. Patient report going to occupational health and was advised to come to ED for chest x-ray Is this a multiple visit Asthma Patient?: No Timing/Duration: 1 week Past History - Past Medical History Allergies/Adverse Reactions: Allergies Allergy/AdvReac Type Severity Reaction Status Date / Time No Known Allergies Allergy Verified 02/05/19 11:40 Home Medications: Ambulatory Orders Albuterol Sulfate 0.5% [Ventolin 0.5% Nebulizing Soln. -] 1 neb IH PRN PRN 03/05 Atorvastatin Ca [Lipitor] 80 mg PO HS 03/05/16 Glipizide Xl [Glucotrol Xl -] 5 mg PO DAILY 03/05/16 Losartan/Hydrochlorothiazide [Losartan-Hctz 100-25 mg Tab] 1 each PO DAILY 03/05 Multivitamin [Poly-Vitamin] 1 each PO DAILY 03/05/16 Tamsulosin HCl [Flomax] 0.8 mg PO HS 03/05/16 Mirabegron [Myrbetriq] 50 mg PO HS 05/30/16 Aspirin [ASA -] 81 mg PO DAILY #100 tab MDD 1 06/29/16 Acetaminophen [Tylenol .Regular Strength -] 650 mg PO Q4H PRN #0 tablet Amlodipine Besylate [Norvasc -] 5 mg PO DAILY #30 tablet 09/30/16 Metformin HCl [Glucophage] 1,000 mg PO BID #60 tablet 09/30/16 Beclomethasone Dipropionate [Qvar] 8.7 gm IH DAILY 01/06/18 Cyclobenzaprine HCl [Flexeril 10 mg] 10 mg PO HS PRN #10 tablet 01/06/18 Albuterol Sulfate [Proair Hfa] 2 puff IH PRN 10/05/18 Ascorbic Acid [Vitamin C] 1,000 mg PO BID 10/05/18 Cholecalciferol (Vitamin D3) [D-2000] 1,000 unit PO DAILY 10/05/18 Sildenafil Citrate [Sildenafil] 20 mg PO PRN PRN 10/05/18 Naproxen 500 mg PO BID #20 tablet 12/21/18 Benzonatate [Tessalon Pearls -] 100 mg PO Q8H PRN #21 capsule 02/05/19 Ipratropium [place] 2 spray NS BID PRN #1 spray 02/05/19 Montelukast Na [Singulair -] 10 mg PO HS #7 tablet 02/05/19 Anemia: No Asthma: Yes Cancer: Yes (Prostate CA.) Cardiac Disorders: Yes CVA: No COPD: No CHF: No Dementia: No Diabetes: Yes GI Disorders: No Disorders: No HTN: Yes Hypercholesterolemia: Yes Liver Disease: No Seizures: No Thyroid Disease: No - Surgical History Abdominal Surgery: No Appendectomy: No Cardiac Surgery: No - Immunization History Immunization Up to Date: Yes - Psycho Social/Smoking Cessation Hx Smoking Status: No Smoking History: Former smoker Have you smoked in the past 12 months: No Number of Cigarettes Smoked Daily: 0 If you are a former smoker, when did you quit?: 40 Information on smoking cessation initiated: No Hx Alcohol Use: No Drug/Substance Use Hx: Yes Substance Use Type: Alcohol Hx Substance Use Treatment: No Review of Systems - Review of Systems Able to Perform ROS?: Yes Is the patient limited [place]er proficient: No Constitutional: No: Chills, Fever, Malaise HEENTM: Yes: Symptoms Reported, See HPI, Nose Congestion. No: Eye Pain, Blurred Vision, Tearing, Recent change in vision, Double Vision, Cataracts, Ear Pain, Ocular Prothesis, Ear Discharge, Nose Pain, Tinnitus, Nose Bleeding, Hearing Loss, Throat Pain, Throat Swelling, Mouth Pain, Dental Problems, Difficulty Swallowing, Mouth Swelling, Other Respiratory: Yes: Symptoms reported, See HPI, Cough, Shortness of Breath ( intermittent), Productive cough (yellow sputum). No: Orthopnea, SOB with Exertion, SOB at Rest, Stridor, Wheezing, Hemoptysis, Other Cardiac (ROS): No: Symptoms Reported, See HPI, Chest Pain, Edema, Irregular Heart Rate, Lightheadedness, Palpitations, Syncope, Chest Tightness, Other ABD/GI: No: Symptoms Reported, Nausea, Vomiting Musculoskeletal: No: Symptoms Reported Integumentary: No: Symptoms Reported Neurological: No: Symptoms reported, Headache, Numbness, Paresthesia, Tingling, Weakness, Dizziness All Other Systems: Reviewed and Negative *Physical Exam - Vital Signs Last Vital Signs Temp Pulse Resp BP Pulse Ox 98.6 F 91 H 18 132/71 97 02/05/19 11:36 02/05/19 11:36 02/05/19 11:36 02/05/19 11:36 02/05/19 11:36 - Physical Exam Comments: 02/05/19 12:28 GENERAL: Well developed, well nourished. Awake and alert. No acute distress. HEENT: Normocephalic, atraumatic. PERRLA, EOMI. No conjunctival pallor. Sclera are non-icteric. Moist mucous membranes. Oropharynx is clear. NECK: Supple. Full ROM. CARDIOVASCULAR: Regular rate and rhythm. No murmurs, rubs, or gallops. Distal pulses are 2+ and symmetric. PULMONARY: No evidence of respiratory distress. Mild expiratory wheeze on lung bases bilateral. No rales or rhonchi. ABDOMINAL: Soft. Non-tender. Non-distended. No rebound or guarding. No organomegaly. Normoactive bowel sounds. MUSCULOSKELETAL Normal range of motion at all joints. SKIN: Warm and dry. Normal capillary refill. No rashes. No cyanosis. NEUROLOGICAL: Alert, awake, appropriate. Gait is normal without ataxia. PSYCHIATRIC: Cooperative. Good eye contact. Appropriate mood General Appearance: Yes: Nourished, Appropriately Dressed. No: Apparent Distress ED Treatment Course - RADIOLOGY Radiology Studies Ordered: Category Date Time Status CHEST PA & LAT [RAD] Stat Radiology 02/05/19 12:04 Ordered Medical Decision Making - Medical Decision Making 02/05/19 12:10 Patient with past medical history of wgy-rsxtswg-nkvrwzhqt diabetes, prostate cancer, asthma and hypertension presented with complaint of one-week history of persistent cough which improved mildly 3 days ago after being treated on amoxicillin antibiotics by PCP and started again yesterday with yellow productive cough. Patient report has been using asthma medication Qvar daily and rescue inhaler with nebulizer since yesterday. Patient report intermittent shortness of breath chest tightness which improved with rescue inhaler. Denies fever, chills, body aches, chest pain, dizziness, numbness or tingling sensation. Patient denies any other symptoms. Patient report going to occupational health and was advised to come to ED for chest x-ray Exam significant for mild expiratory wheeze in the lung bases with no acute respiratory distress otherwise unremarkable exam. Symptoms likely viral URI versus less likely pneumonia. EKG ordered due to history of hypertension diabetes with intermittent shortness of breath. Chest x -ray ordered to rule out acute chest pathology 02/05/19 12:45 EKG shows normal sinus rhythm. Chest x-ray unremarkable. Patient symptoms likely viral URI. Decadron 10 mg p.o. given for wheezing. Patient stable for discharge on Tessalon Perles as needed for cough with Singulair antihistamine and Atrovent nasal spray for nasal congestion with advised to continue home asthma medication follow-up PCP. Patient asymptomatic and stable for discharge Discharge - Discharge Information Problems reviewed: Yes Clinical Impression/Diagnosis: Nasal congestion Upper respiratory infection Qualifiers: URI type: unspecified URI Qualified Code(s): J06.9 - Acute upper respiratory infection, unspecified Asthma exacerbation Qualifiers: Asthma severity: mild Asthma persistence: intermittent Qualified Code(s): J45.21 - Mild intermittent asthma with (acute) exacerbation Condition: Stable Disposition: HOME - Admission No - Additional Discharge Information Prescriptions: Benzonatate [Tessalon Pearls -] 100 mg PO Q8H PRN #21 capsule PRN Reason: Cough Ipratropium [place] 2 spray NS BID PRN #1 spray PRN Reason: nasal congestion Montelukast Na [Singulair -] 10 mg PO HS #7 tablet - Follow up/Referral - Patient Discharge Instructions Patient Printed Discharge Instructions: DI for Viral Upper Respiratory Infection -- Adult Additional Instructions: Your chest x-ray was normal and shows no bronchitis or pneumonia. Your symptoms likely caused by upper respiratory infection. Take prescribed medication as prescribed for cough. Increase fluid intake. Follow-up with primary care - Post Discharge Activity Work/Back to School Note: Back to Work
[2019-02-05] MEDS ORDERED: DEXAMETHASONE LIQUID 0.5 MG/5 ML PO ONE (12:41)
[2019-02-05] MEDS ORDERED: DEXAMETHASONE SOD PHOSPHATE 10 MG/1 ML VIAL ONE (12:43)
--- NOTE | 2019-02-06 11:30 | EKG ---
Test Reason : Blood Pressure : / mmHG Vent. Rate : 087 BPM Atrial Rate : 087 BPM P-R Int : 168 ms QRS Dur : 102 ms QT Int : 368 ms P-R-T Axes : 057 041 034 degrees QTc Int : 442 ms POOR DATA QUALITY, INTERPRETATION MAY BE ADVERSELY AFFECTED NORMAL SINUS RHYTHM POSSIBLE LEFT ATRIAL ENLARGEMENT BORDERLINE ECG WHEN COMPARED WITH ECG OF 05-OCT-2018 09:02, NO SIGNIFICANT CHANGE WAS FOUND Confirmed by AGUSTÍN RICARDO, IVANIA ([id number]) on 02/06/2019 11:30:32 AM Referred By: Confirmed By:IVANIA RANDOLPH MD
== END 2019-02-05 12:52 | disposition home or self-care (01) ==
LOC: JERFT 11:33
DX: J45.21 Mild intermittent asthma with (acute) exacerbation (principal); J06.9 Acute upper respiratory infection, unspecified; I10 Essential (primary) hypertension; E11.9 Type 2 diabetes mellitus without complications; Z79.84 Long term (current) use of oral hypoglycemic drugs; C61 Malignant neoplasm of prostate; Z79.82 Long term (current) use of aspirin; Z87.891 Personal history of nicotine dependence
CPT/HCPCS: 71046-TC-FY; 93005; 93010; 99281-25

== ENCOUNTER 2019-03-03 09:48 | Emergency (ER) | payer OTHER ==
[2019-03-03 10:01] VITALS: BP 132/76; PULSE 95; TEMP 98.1; BMI 32.2
[2019-03-03] MEDS: ALBUTEROL SO4 2.5/IPRATROPIUM 0.5 INH SOL 3 ML VIAL.NEB. NEB SCH ×4 (10:01→10:46)
[2019-03-03] MEDS ORDERED: ALBUTEROL SO4 2.5/IPRATROPIUM 0.5 INH SOL 3 ML VIAL.NEB. NEB ONE (10:11)
[2019-03-03] MEDS ORDERED: predniSONE 20 MG TABLET (UD) PO ONE (10:12)
[2019-03-03] MEDS ORDERED: predniSONE 20 MG TABLET (UD) ONE (10:14)
--- NOTE | 2019-03-03 10:21 | PDOC ---
History of Present Illness - General Chief Complaint: Wheezing Stated Complaint: Asthma Time Seen by Provider: 03/03/19 10:00 History Source: Patient - History of Present Illness Timing/Duration: reports: yesterday Past History - Past Medical History Allergies/Adverse Reactions: Allergies Allergy/AdvReac Type Severity Reaction Status Date / Time No Known Allergies Allergy Verified 03/03/19 10:01 Home Medications: Ambulatory Orders Albuterol Sulfate 0.5% [Ventolin 0.5% Nebulizing Soln. -] 1 neb IH PRN PRN 03/05 Atorvastatin Ca [Lipitor] 80 mg PO HS 03/05/16 Glipizide Xl [Glucotrol Xl -] 5 mg PO DAILY 03/05/16 Losartan/Hydrochlorothiazide [Losartan-Hctz 100-25 mg Tab] 1 each PO DAILY 03/05 Multivitamin [Poly-Vitamin] 1 each PO DAILY 03/05/16 Tamsulosin HCl [Flomax] 0.8 mg PO HS 03/05/16 Mirabegron [Myrbetriq] 50 mg PO HS 05/30/16 Aspirin [ASA -] 81 mg PO DAILY #100 tab MDD 1 06/29/16 Acetaminophen [Tylenol .Regular Strength -] 650 mg PO Q4H PRN #0 tablet Amlodipine Besylate [Norvasc -] 5 mg PO DAILY #30 tablet 09/30/16 Metformin HCl [Glucophage] 1,000 mg PO BID #60 tablet 09/30/16 Beclomethasone Dipropionate [Qvar] 8.7 gm IH DAILY 01/06/18 Cyclobenzaprine HCl [Flexeril 10 mg] 10 mg PO HS PRN #10 tablet 01/06/18 Albuterol Sulfate [Proair Hfa] 2 puff IH PRN 10/05/18 Ascorbic Acid [Vitamin C] 1,000 mg PO BID 10/05/18 Cholecalciferol (Vitamin D3) [D-2000] 1,000 unit PO DAILY 10/05/18 Sildenafil Citrate [Sildenafil] 20 mg PO PRN PRN 10/05/18 Naproxen 500 mg PO BID #20 tablet 12/21/18 Benzonatate [Tessalon Pearls -] 100 mg PO Q8H PRN #21 capsule 02/05/19 Ipratropium [place] 2 spray NS BID PRN #1 spray 02/05/19 Montelukast Na [Singulair -] 10 mg PO HS #7 tablet 02/05/19 Albuterol 0.083% Nebulizer Odalys [Ventolin 0.083% Nebulizer Soln -] 1 amp NEB ASDIR #30 amp 03/03/19 predniSONE [Deltasone -] 40 mg PO DAILY #8 tablet 03/03/19 predniSONE [Deltasone -] 40 mg PO DAILY #8 tablet 03/03/19 Anemia: No Asthma: Yes Cancer: Yes (Prostate CA.) Cardiac Disorders: Yes CVA: No COPD: No CHF: No Dementia: No Diabetes: Yes GI Disorders: No Disorders: No HTN: Yes Hypercholesterolemia: Yes Liver Disease: No Seizures: No Thyroid Disease: No - Surgical History Abdominal Surgery: No Appendectomy: No Cardiac Surgery: No - Immunization History Immunization Up to Date: Yes - Psycho Social/Smoking Cessation Hx Smoking Status: No Smoking History: Never smoked Have you smoked in the past 12 months: No Number of Cigarettes Smoked Daily: 0 If you are a former smoker, when did you quit?: 40 Information on smoking cessation initiated: No Hx Alcohol Use: No Drug/Substance Use Hx: No Substance Use Type: Alcohol Hx Substance Use Treatment: No Review of Systems - Review of Systems Constitutional: No: Chills, Fever Respiratory: Yes: Shortness of Breath, Wheezing Cardiac (ROS): No: Chest Pain, Chest Tightness *Physical Exam - Vital Signs Last Vital Signs Temp Pulse Resp BP Pulse Ox 98.1 F 95 H 19 132/76 97 03/03/19 09:59 03/03/19 09:59 03/03/19 09:59 03/03/19 09:59 03/03/19 09:59 - Physical Exam General Appearance: Yes: Appropriately Dressed. No: Apparent Distress HEENT: positive: Normal ENT Inspection, Normal Voice, TMs Normal, Pharynx Normal. negative: Scleral Icterus (R), Scleral Icterus (L) Neck: positive: Supple Respiratory/Chest: positive: Wheezing. negative: Respiratory Distress Integumentary: positive: Dry, Warm Neurologic: positive: Fully Oriented, Alert, Normal Mood/Affect ED Treatment Course - RADIOLOGY Radiology Studies Ordered: Category Date Time Status CHEST PA & LAT [RAD] Stat Radiology 03/03/19 10:12 Ordered Medical Decision Making - Medical Decision Making 03/03/19 10:13 63 yo M, h/o HTN, dx w/ "localized" prostate cancer > 1 yr ago, on meds w/ f/u at [facility] [place], asthma w/ no recent admissions or intubations, here with persistent nonproductive cough x2 weeks with shortness of breath and wheezing last night. States rescue inhaler and nebs not relieving symptoms. Seen by his PMD 2 weeks ago and prescribed antibiotics for bronchitis which she has since completed. No history of pneumonia and no tobacco use. No palpitations leg pain or swelling. States current symptoms consistent with his asthma see exam Asthma exacerbation, PE considered given h/o prostate ca but less likely Stable w/ expiratory wheezing -nebs -pred -reassess 03/03/19 11:02 Patient reports feeling significantly better with clear lungs on reassessment. Able to ambulate without shortness of breath. CXR neg. Will dc w/Pred burst and to return as needed 03/03/19 11:04 Discharge - Discharge Information Problems reviewed: Yes Clinical Impression/Diagnosis: Asthma exacerbation Qualifiers: Asthma severity: mild Asthma persistence: unspecified Qualified Code(s): J45.901 - Unspecified asthma with (acute) exacerbation - Additional Discharge Information Prescriptions: Albuterol 0.083% Nebulizer Odalys [Ventolin 0.083% Nebulizer Soln -] 1 amp NEB ASDIR #30 amp predniSONE [Deltasone -] 40 mg PO DAILY #8 tablet predniSONE [Deltasone -] 40 mg PO DAILY #8 tablet - Follow up/Referral - Patient Discharge Instructions Patient Printed Discharge Instructions: Asthma -- Adult Additional Instructions: Take meds as prescribed and return to ER as needed - Post Discharge Activity
== END 2019-03-03 11:05 | disposition home or self-care (01) ==
LOC: JERFT 09:48
PROC: 3E0F7GC Introduction of Other Therapeutic Substance into Respiratory Tract, Via Natural or Artificial Opening (ICD-10-PCS; principal; 2019-03-03)
DX: J45.901 Unspecified asthma with (acute) exacerbation (principal); I10 Essential (primary) hypertension
CPT/HCPCS: 71046-TC-FY; 99281-25

== ENCOUNTER 2019-03-05 14:07 | Emergency (ER) | payer OTHER ==
[2019-03-05 14:11] VITALS: BP 130/83; PULSE 100; TEMP 98; BMI 32.2
--- NOTE | 2019-03-05 15:11 | PDOC ---
History of Present Illness - General Chief Complaint: Eye Problem Stated Complaint: COUGH Time Seen by Provider: 03/05/19 14:36 History Source: Patient Exam Limitations: No Limitations Past History - Past Medical History Allergies/Adverse Reactions: Allergies Allergy/AdvReac Type Severity Reaction Status Date / Time No Known Allergies Allergy Verified 03/05/19 14:11 Home Medications: Ambulatory Orders Albuterol Sulfate 0.5% [Ventolin 0.5% Nebulizing Soln. -] 1 neb IH PRN PRN 03/05 Atorvastatin Ca [Lipitor] 80 mg PO HS 03/05/16 Glipizide Xl [Glucotrol Xl -] 5 mg PO DAILY 03/05/16 Losartan/Hydrochlorothiazide [Losartan-Hctz 100-25 mg Tab] 1 each PO DAILY 03/05 Multivitamin [Poly-Vitamin] 1 each PO DAILY 03/05/16 Tamsulosin HCl [Flomax] 0.8 mg PO HS 03/05/16 Mirabegron [Myrbetriq] 50 mg PO HS 05/30/16 Aspirin [ASA -] 81 mg PO DAILY #100 tab MDD 1 06/29/16 Acetaminophen [Tylenol .Regular Strength -] 650 mg PO Q4H PRN #0 tablet Amlodipine Besylate [Norvasc -] 5 mg PO DAILY #30 tablet 09/30/16 Metformin HCl [Glucophage] 1,000 mg PO BID #60 tablet 09/30/16 Beclomethasone Dipropionate [Qvar] 8.7 gm IH DAILY 01/06/18 Cyclobenzaprine HCl [Flexeril 10 mg] 10 mg PO HS PRN #10 tablet 01/06/18 Albuterol Sulfate [Proair Hfa] 2 puff IH PRN 10/05/18 Ascorbic Acid [Vitamin C] 1,000 mg PO BID 10/05/18 Cholecalciferol (Vitamin D3) [D-2000] 1,000 unit PO DAILY 10/05/18 Sildenafil Citrate [Sildenafil] 20 mg PO PRN PRN 10/05/18 Naproxen 500 mg PO BID #20 tablet 12/21/18 Benzonatate [Tessalon Pearls -] 100 mg PO Q8H PRN #21 capsule 02/05/19 Ipratropium Soquel 2 spray NS BID PRN #1 spray 02/05/19 Montelukast Na [Singulair -] 10 mg PO HS #7 tablet 02/05/19 Albuterol 0.083% Nebulizer Odalys [Ventolin 0.083% Nebulizer Soln -] 1 amp NEB ASDIR #30 amp 03/03/19 predniSONE [Deltasone -] 40 mg PO DAILY #8 tablet 03/03/19 predniSONE [Deltasone -] 40 mg PO DAILY #8 tablet 03/03/19 Anemia: No Asthma: Yes Cancer: Yes (Prostate CA.) Cardiac Disorders: Yes CVA: No COPD: No CHF: No Dementia: No Diabetes: Yes GI Disorders: No Disorders: No HTN: Yes Hypercholesterolemia: Yes Liver Disease: No Seizures: No Thyroid Disease: No - Surgical History Abdominal Surgery: No Appendectomy: No Cardiac Surgery: No - Immunization History Immunization Up to Date: Yes - Psycho Social/Smoking Cessation Hx Smoking Status: No Smoking History: Never smoked Have you smoked in the past 12 months: No Number of Cigarettes Smoked Daily: 0 If you are a former smoker, when did you quit?: 40 Hx Alcohol Use: No Drug/Substance Use Hx: No Substance Use Type: Alcohol Hx Substance Use Treatment: No *Physical Exam - Vital Signs Last Vital Signs Temp Pulse Resp BP Pulse Ox 98 F 100 H 18 130/83 98 03/05/19 14:08 03/05/19 14:08 03/05/19 14:08 03/05/19 14:08 03/05/19 14:08 - Physical Exam General Appearance: No: Apparent Distress HEENT: positive: EOMI, JEANINE, Other (+red blood on white sclera of R eye, vision 20/20 R eye, 20/20 L eye, 20/20 both eyes, no pain on eye movement) 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 denies eye pain, blurred vision, photophobia, headache, n/ v, pain on eye movement, other complaints subconjunctival hemorrhage patient reassured stable for dc 03/05/19 15:13 Discharge - Discharge Information Problems reviewed: Yes Clinical Impression/Diagnosis: Subconjunctival hemorrhage Qualifiers: Laterality: right Qualified Code(s): H11.31 - Conjunctival hemorrhage, right eye Condition: Stable Disposition: HOME - Admission No - Additional Discharge Information Prescription Drug Monitoring Program (I-STOP) results: I-STOP not reviewed - Follow up/Referral Referrals: Nieves Marie MD [Primary Care Provider] - 2 Days - Patient Discharge Instructions Patient Printed Discharge Instructions: DI for Subconjunctival Hemorrhage Additional Instructions: Thank you for choosing [facility]. It was a pleasure taking care of you. This should resolve on its own Return to the Emergency Department if your symptoms worsen or persist, you have fever, vision changes, eye pain or other concerning symptoms. - Post Discharge Activity
== END 2019-03-05 15:31 | disposition home or self-care (01) ==
LOC: JERFT 14:07
DX: H11.31 Conjunctival hemorrhage, right eye (principal); I10 Essential (primary) hypertension; E78.00 Pure hypercholesterolemia, unspecified; E11.9 Type 2 diabetes mellitus without complications; Z79.84 Long term (current) use of oral hypoglycemic drugs; J45.909 Unspecified asthma, uncomplicated; Z85.46 Personal history of malignant neoplasm of prostate
CPT/HCPCS: 99281-25

== ENCOUNTER 2020-05-23 04:33 | Day surgery (SDC) | payer OTHER ==
[2020-05-23 09:05] VITALS: BMI 31.1
[2020-05-23 09:59] VITALS: TEMP 98.7
[2020-05-23 10:39] VITALS: BP 124/73; PULSE 88
== END 2020-05-23 10:42 | disposition home or self-care (01) ==
LOC: JASU-ENDO 04:33
PROVIDERS: ATTEND Internal Medicine Gastroenterology
PROC: 0DBP8ZX Excision of Rectum, Via Natural or Artificial Opening Endoscopic, Diagnostic (ICD-10-PCS; principal; 2020-05-23 09:00)
DX: Z86.010 Personal history of colon polyps (principal); K57.30 Diverticulosis of large intestine without perforation or abscess without bleeding; D12.8 Benign neoplasm of rectum; I25.10 Atherosclerotic heart disease of native coronary artery without angina pectoris; E11.9 Type 2 diabetes mellitus without complications; N40.0 Benign prostatic hyperplasia without lower urinary tract symptoms
CPT/HCPCS: 88305-TC

== ENCOUNTER 2022-07-03 08:20 | Day surgery (SDC) | payer OTHER ==
[2022-07-01 16:15] VITALS: BMI 29.9
[2022-07-03] MEDS ORDERED: ceFAZolin SODIUM 1 GM VIAL ONE (10:29)
[2022-07-03] MEDS ORDERED: MIDAZOLAM HCL 2 MG/2 ML SINGLE DOSE VIAL ONE (10:40)
[2022-07-03] MEDS ORDERED: ROPIVACAINE HCL 0.5% 30ML VIAL ONE (10:41)
[2022-07-03] MEDS ORDERED: FENTANYL CITRATE/PF 50 MCG/ML VIAL ONE (10:41)
[2022-07-03] MEDS ORDERED: PROPOFOL 20 ML ONE (10:55)
[2022-07-03 13:30] VITALS: TEMP 97.8
[2022-07-04 13:45] VITALS: BP 113/76; PULSE 75; RESP 16
== END 2022-07-03 14:00 | disposition home or self-care (01) ==
LOC: FASU 08:20
PROVIDERS: ATTEND Orthopaedic Surgery Hand Surgery
PROC: 0LX70ZZ Transfer Right Hand Tendon, Open Approach (ICD-10-PCS; principal; 2022-07-03 10:32)
DX: M18.11 Unilateral primary osteoarthritis of first carpometacarpal joint, right hand (principal)
CPT/HCPCS: 82962; 94760; C1713